=== PATIENT | female | born 1985 | race African-American/Black ===

== ENCOUNTER 2016-09-19 11:13 | Inpatient (IN) | payer BC ==
[2016-09-19] MEDS ORDERED: SODIUM CHLORIDE 0.9% 1,000 ML IV STA (12:05)
[2016-09-19] MEDS ORDERED: ACETAMINOPHEN IV (For NPO) 1,000 MG in SALINE 100 100ML.BAG IVPB STA (12:08)
--- NOTE | 2016-09-19 12:49 | ED ---
General Adult HPI - General Source: patient, EMS, RN notes reviewed Mode of arrival: EMS Limitations: no limitations <Charlie Jaffe - Last Filed: 09/19/16 12:33> <Caesar Payton - Last Filed: 09/19/16 15:16> - General Chief complaint: Abdominal Pain Stated complaint: Chest Pain Time Seen by Provider: 09/19/16 11:53 - History of Present Illness Initial comments: patient's 31-year-old female who presents emergency room today by EMS, the chief complaint of increased abdominal chest pain. She does admit that she's been having symptoms on and off over the last month. She states been more steady last few days. She states she does have some feelings that she has difficult time breathing. She states that she has been to the hospital about this in the past most recently at [facility]. denies any other complaints. Denies any vaginal bleeding or discharge. States she is proximal to 7 weeks by ultrasound. Patient denies any recent fever, chills, shortness of breath, chest pain, back pain, abdominal pain, nausea or vomiting, numbness or tingling, dysuria or hematuria, constipation or diarrhea, headaches or visual changes, or any other complaints. (Charlie Jaffe) - Related Data Home Medications Medication Instructions Recorded Confirmed No Known Home Medications [No 09/19/16 09/19/16 Known Home Medications] Allergies Allergy/AdvReac Type Severity Reaction Status Date / Time aspirin Allergy Anaphylaxis Verified 09/19/16 12:21 cephalexin [From Keflex] Allergy Anaphylaxis Verified 09/19/16 12:21 Review of Systems ROS Other: All systems not noted in ROS Statement are negative. <Charlie Jaffe - Last Filed: 09/19/16 12:33> ROS Other: All systems not noted in ROS Statement are negative. <Caesar Payton - Last Filed: 09/19/16 15:16> ROS Statement: Those systems with pertinent positive or pertinent negative responses have been documented in the HPI. Past Medical History Past Medical History: No Reported History History of Any Multi-Drug Resistant Organisms: None Reported Past Surgical History: No Surgical Hx Reported Past Psychological History: Anxiety Smoking Status: Former smoker Past Alcohol Use History: None Reported Past Drug Use History: None Reported <Charlie Jaffe - Last Filed: 09/19/16 12:33> General Exam Limitations: no limitations <Charlie Jaffe - Last Filed: 09/19/16 12:33> <Caesar Payton - Last Filed: 09/19/16 15:16> - General Exam Comments Initial Comments: General: The patient is awake and alert, in no distress, and does not appear acutely ill. Eye: Pupils are equal, round and reactive to light, extra-ocular movements are intact. No nystagmus. There is normal conjunctiva bilaterally. No signs of icterus. Ears, nose, mouth and throat: There are moist mucous membranes and no oral lesions. Neck: The neck is supple, there is no tenderness or JVD. Cardiovascular: There is a regular rate and rhythm. No murmur, rub or gallop is appreciated.pain reproduced on palpation to the anterior chest wall. Respiratory: Lungs are clear to auscultation, respirations are non-labored, breath sounds are equal. No wheezes, stridor, rales, or rhonchi. Gastrointestinal: Soft, non-distended, non-tender abdomen without masses or organomegaly noted. There is no rebound or guarding present. No CVA tenderness. Bowel sounds are unremarkable. Musculoskeletal: Normal ROM, no tenderness. Strength 5/5. Sensation intact. Pulses equal bilaterally 2+. Neurological: A&O x 3. CN II-XII intact, There are no obvious motor or sensory deficits. Coordination appears grossly intact. Speech is normal. Skin: Skin is warm and dry and no rashes or lesions are noted. Psychiatric: Cooperative, appropriate mood & affect, normal judgment. (Charlie Jaffe) Medical Decision Making <Charlie Jaffe - Last Filed: 09/19/16 12:33> - Lab Data Result diagrams: 09/19/16 12:30 09/19/16 12:30 <Caesar Payton - Last Filed: 09/19/16 15:16> - Medical Decision Making Medical decision-making. The patient is here because of persistent epigastric and right lower quadrant discomfort. On again off again for several months per patient. She was seen at [facility] in [place] on two successive days yesterday and day before. She was discharged home after studies including repeated abdominalultrasounds which were negative.also surgical consultation was done at that time. It was determined the patient is not likely to have appendicitis. The patient is reported to be 7 weeks . Patient complains of nausea vomiting no diarrhea. Denies any serious medical problems denies any previous surgeries. History of aspirin and cephalexin ALLERGIES. Patient states that she is from [place] and prior to being her doctor there was going to order a CAT scan but it didn't happen. nausea vomiting no diarrhea and no vaginal discharge. Labs at the other facility were similar to what they are today at 14,000. on examination the patient has minimal tenderness to the right upper quadrant, negative Smith sign. patient has periods to be GERD with reflux esophagitis. Examination the abdomen finds negative McBurney's point but palpation of the right lower quadrant causes some discomfort, voluntary guarding, no rebound or referred pain..Dr. Payton the case was discussed with Dr. Rosario patient be admitted to his service for observation. She'll be on Reglan to control nausea. ofirmev for pain. Repeat white count.Dr. Payton (Caesar Payton) - Lab Data Lab Results 09/19/16 09/19/16 09/19/16 Range/Units 12:30 12:30 12:30 WBC 14.4 H (3.8-10.6) k/uL RBC 4.06 (3.80-5.40) m/uL Hgb 12.2 (11.4-16.0) gm/dL Hct 34.3 (34.0-46.0) % MCV 84.4 (80.0-100.0) fL MCH 30.1 (25.0-35.0) pg MCHC 35.7 (31.0-37.0) g/dL RDW 13.8 (11.5-15.5) % Plt Count 194 (150-450) k/uL Neutrophils % 87 % Lymphocytes % 10 % Monocytes % 3 % Eosinophils % 1 % Basophils % 0 % Neutrophils # 12.5 H (1.3-7.7) k/uL Lymphocytes # 1.4 (1.0-4.8) k/uL Monocytes # 0.4 (0-1.0) k/uL Eosinophils # 0.1 (0-0.7) k/uL Basophils # 0.1 (0-0.2) k/uL PT (9.0-12.0) sec INR (<1.1) APTT (22.0-30.0) sec D-Dimer (<0.60) mg/L FEU Sodium 137 (137-145) mmol/L Potassium 4.3 (3.5-5.1) mmol/L Chloride 109 H (98-107) mmol/L Carbon Dioxide 19 L (22-30) mmol/L Anion Gap 9 mmol/L BUN 7 (7-17) mg/dL Creatinine 0.65 (0.52-1.04) mg/dL Est GFR (MDRD) Af Amer >60 (>60 ml/min/1.73 sqM) Est GFR (MDRD) Non-Af >60 (>60 ml/min/1.73 sqM) Glucose 94 (74-99) mg/dL Calcium 8.8 (8.4-10.2) mg/dL Total Bilirubin 1.3 (0.2-1.3) mg/dL AST 23 (14-36) U/L ALT 17 (9-52) U/L Alkaline Phosphatase 56 (38-126) U/L Total Creatine Kinase 77 (30-135) U/L CK-MB (CK-2) <0.2 (0.0-2.4) ng/mL CK-MB (CK-2) Rel Index Troponin I <0.012 (0.000-0.034) ng/mL Total Protein 6.7 (6.3-8.2) g/dL Albumin 3.9 (3.5-5.0) g/dL Urine Color Urine Appearance (Clear) Urine pH (5.0-8.0) Ur Specific [place] (1.001-1.035) Urine Protein (Negative) Urine Glucose (UA) (Negative) Urine Ketones (Negative) Urine Blood (Negative) Urine Nitrite (Negative) Urine Bilirubin (Negative) Urine Urobilinogen (<2.0) mg/dL Ur Leukocyte Esterase (Negative) Ur Squamous Epith Cells (0-4) /hpf Amorphous Sediment (None) /hpf Urine Mucus (None) /hpf Urine HCG, Qual (Not Detectd) 09/19/16 09/19/16 09/19/16 Range/Units 12:30 12:30 12:30 WBC (3.8-10.6) k/uL RBC (3.80-5.40) m/uL Hgb (11.4-16.0) gm/dL Hct (34.0-46.0) % MCV (80.0-100.0) fL MCH (25.0-35.0) pg MCHC (31.0-37.0) g/dL RDW (11.5-15.5) % Plt Count (150-450) k/uL Neutrophils % % Lymphocytes % % Monocytes % % Eosinophils % % Basophils % % Neutrophils # (1.3-7.7) k/uL Lymphocytes # (1.0-4.8) k/uL Monocytes # (0-1.0) k/uL Eosinophils # (0-0.7) k/uL Basophils # (0-0.2) k/uL PT 10.7 (9.0-12.0) sec INR 1.1 (<1.1) APTT 24.7 (22.0-30.0) sec D-Dimer 0.35 (<0.60) mg/L FEU Sodium (137-145) mmol/L Potassium (3.5-5.1) mmol/L Chloride (98-107) mmol/L Carbon Dioxide (22-30) mmol/L Anion Gap mmol/L BUN (7-17) mg/dL Creatinine (0.52-1.04) mg/dL Est GFR (MDRD) Af Amer (>60 ml/min/1.73 sqM) Est GFR (MDRD) Non-Af (>60 ml/min/1.73 sqM) Glucose (74-99) mg/dL Calcium (8.4-10.2) mg/dL Total Bilirubin (0.2-1.3) mg/dL AST (14-36) U/L ALT (9-52) U/L Alkaline Phosphatase (38-126) U/L Total Creatine Kinase (30-135) U/L CK-MB (CK-2) (0.0-2.4) ng/mL CK-MB (CK-2) Rel Index Troponin I (0.000-0.034) ng/mL Total Protein (6.3-8.2) g/dL Albumin (3.5-5.0) g/dL Urine Color Yellow Urine Appearance Cloudy H (Clear) Urine pH 8.0 (5.0-8.0) Ur Specific [place] 1.013 (1.001-1.035) Urine Protein Negative (Negative) Urine Glucose (UA) Negative (Negative) Urine Ketones 2+ H (Negative) Urine Blood Negative (Negative) Urine Nitrite Negative (Negative) Urine Bilirubin Negative (Negative) Urine Urobilinogen <2.0 (<2.0) mg/dL Ur Leukocyte Esterase Negative (Negative) Ur Squamous Epith Cells 1 (0-4) /hpf Amorphous Sediment Rare H (None) /hpf Urine Mucus Rare H (None) /hpf Urine HCG, Qual Detected (Not Detectd) Disposition <Charlie Jaffe - Last Filed: 09/19/16 12:33> <Caesar Payton - Last Filed: 09/19/16 15:16> Clinical Impression: GERD (gastroesophageal reflux disease), Abdominal pain, First trimester Disposition: ADMITTED IP TO THIS HOSP Referrals: None,Stated [Primary Care Provider] - 1-2 days
[2016-09-19 12:58] LABS: ALT 17 U/L (9-52); AST 23 U/L (14-36); Alkaline Phosphatase 56 U/L (38-126); Anion Gap 9 mmol/L; Blood Urea Nitrogen 7 mg/dL (7-17); Calcium 8.8 mg/dL (8.4-10.2); Carbon Dioxide 19 mmol/L (22-30); Chloride 109 mmol/L (98-107); Glucose 94 mg/dL (74-99); Non-African American GFR(MDRD) >60 (>60 ml/min/1.73 sqM); Potassium 4.3 mmol/L (3.5-5.1); Sodium 137 mmol/L (137-145); Total Bilirubin 1.3 mg/dL (0.2-1.3); Total Protein 6.7 g/dL (6.3-8.2)
[2016-09-19 13:06] LABS: Basophils # (A) 0.1 k/uL (0-0.2); Basophils % (A) 0 %; CH 30.9; CHCM 36.8; Eosinophils # (A) 0.1 k/uL (0-0.7); Eosinophils % (A) 1 %; HCT 34.3 % (34.0-46.0); HDW 2.18; HGB 12.2 gm/dL (11.4-16.0); Luc # (Auto) 0.07; Luc % (Auto) 1; Lymphocytes # (A) 1.4 k/uL (1.0-4.8); Lymphocytes % (A) 10 %; MCH 30.1 pg (25.0-35.0); MCHC 35.7 g/dL (31.0-37.0); MCV 84.4 fL (80.0-100.0); Mean Platelet Volume 7.6; Monocytes # (A) 0.4 k/uL (0-1.0); Monocytes % (A) 3 %; Neutrophils # (A) 12.5 k/uL (1.3-7.7); Neutrophils % (A) 87 %; RBC 4.06 m/uL (3.80-5.40); RDW 13.8 % (11.5-15.5); WBC 14.4 k/uL (3.8-10.6); WBC (Perox) 14.46
[2016-09-19 13:08] LABS: Creatine Kinase 77 U/L (30-135)
[2016-09-19 13:15] LABS: INR 1.1 (<1.1); Partial Thromboplastin Time 24.7 sec (22.0-30.0); Prothrombin Time 10.7 sec (9.0-12.0)
[2016-09-19 13:17] LABS: Amorphous Sediment,Urine Rare /hpf; Appearance,Urine Cloudy (Clear); Bilirubin,Urine Negative (Negative); Glucose,Urine (UA) Negative (Negative); Ketones,Urine 2+ (Negative); Leukocyte Esterase,Urine Negative (Negative); Mucus,Urine Rare /hpf; Nitrite,Urine Negative (Negative); Particle Count 3482; Protein,Urine Negative (Negative); Specific Gravity,Urine 1.013 (1.001-1.035); Squamous Epithelial Cell,Urine 1 /hpf (0-4); UA Billing (MACRO vs. MICRO) MICRO; Urobilinogen,Urine <2.0 mg/dL (<2.0)
[2016-09-19 13:21] LABS: Creatine Kinase MB <0.2 ng/mL (0.0-2.4); Troponin I <0.012 ng/mL (0.000-0.034)
[2016-09-19] MEDS ORDERED: HYDROmorphone 1 MG/ML 1 ML SYRINGE IVP STA (14:41)
[2016-09-19] MEDS ORDERED: METOCLOPRAMIDE 5 MG/ML 2 ML VIAL IVP STA (14:41)
[2016-09-19] MEDS ORDERED: NALOXONE 0.4 MG/ML 1 ML VIAL IV PRN (15:16)
[2016-09-19] MEDS ORDERED: SODIUM CHLORIDE 0.9% 1,000 ML IV SCH (15:30)
[2016-09-19] MEDS: HYDROmorphone 1 MG/ML 1 ML SYRINGE IV PRN ×2 (19:22→23:22)
[2016-09-19] MEDS: METOCLOPRAMIDE 5 MG/ML 2 ML VIAL IVP PRN (19:24)
[2016-09-19] MEDS ORDERED: FAMOTIDINE 20 MG/2 ML VIAL IV PRN (21:00)
[2016-09-20] MEDS: HYDROmorphone 1 MG/ML 1 ML SYRINGE IV PRN ×5 (03:11→21:57)
[2016-09-20] MEDS: METOCLOPRAMIDE 5 MG/ML 2 ML VIAL IVP PRN ×3 (03:13→19:55)
[2016-09-20 06:10] LABS: Basophils % (A) 0 %; CHCM 36.7; Eosinophils # (A) 0.1 k/uL (0-0.7); Eosinophils % (A) 0 %; HDW 2.13; HGB 11.6 gm/dL (11.4-16.0); Luc # (Auto) 0.17; Luc % (Auto) 1; Lymphocytes # (A) 2.3 k/uL (1.0-4.8); Lymphocytes % (A) 16 %; MCH 29.7 pg (25.0-35.0); MCHC 35.1 g/dL (31.0-37.0); MCV 84.6 fL (80.0-100.0); Monocytes # (A) 0.6 k/uL (0-1.0); Monocytes % (A) 4 %; Neutrophils # (A) 11.3 k/uL (1.3-7.7); Neutrophils % (A) 78 %; RDW 13.6 % (11.5-15.5); WBC 14.4 k/uL (3.8-10.6); WBC (Perox) 14.63
[2016-09-20] MEDS ORDERED: LIDOCAINE VISCOUS 2% 15 ML CUP MUCOUS MEM ONE (09:05)
[2016-09-20] MEDS ORDERED: HYDROmorphone 1 MG/ML 1 ML SYRINGE IVP STA (09:05)
[2016-09-20] MEDS ORDERED: MAGNESIUM HYDROXIDE 2,400 MG/10 ML CUP PO PRN (09:06)
[2016-09-20] MEDS: ONDANSETRON 4 MG/2 ML VIAL IVP PRN ×3 (09:07→22:00)
--- NOTE | 2016-09-20 09:22 | P.GSHP ---
History of Present Illness H&P Date: 09/20/16 Chief Complaint: Epigastric pain, chest pain, nausea This a 31-year-old female who presented to the emergency room with complaints of nausea, chest pain and epigastric pain. Patient is 7 weeks . Patient states she lives in [facility] for the last 8 years and has recently moved back to [place]. Patient moved back to [place] approximately 2 weeks ago. Patient states that she has developed this pain nausea and chest pain over the last 72 hours. She was actually worked up at [facility] and her workup was negative. She was discharged home after receiving pain meds. Patient presented back to the emergency room at [facility]. Due to her complaints of pain and nausea she was admitted for observation. Patient states that she feels nausea and some heartburn type issues. She is 7 weeks . - Constitutional Constitutional: Reports as per HPI Past Medical History Past Medical History: No Reported History History of Any Multi-Drug Resistant Organisms: None Reported Past Surgical History: No Surgical Hx Reported Past Anesthesia/Blood Transfusion Reactions: No Reported Reaction Past Psychological History: Anxiety Smoking Status: Former smoker Past Alcohol Use History: None Reported Past Drug Use History: None Reported - Past Family History Mother Family Medical History: Thyroid Disorder Father Additional Family Medical History / Comment(s): pt states none Medications and Allergies Home Medications Medication Instructions Recorded Confirmed Type No Known Home Medications [No 09/19/16 09/19/16 History Known Home Medications] Allergies Allergy/AdvReac Type Severity Reaction Status Date / Time aspirin Allergy Anaphylaxis Verified 09/19/16 12:21 cephalexin [From Keflex] Allergy Anaphylaxis Verified 09/19/16 12:21 Surgical - Exam Vital Signs Temp Pulse Resp BP Pulse Ox 97.3 F L 79 30 H 124/72 100 09/19/16 11:28 09/19/16 11:28 09/19/16 11:28 09/19/16 11:28 09/19/16 11:28 - General well developed, no distress - Eyes PERRL - ENT normal pinna - Neck no masses - Respiratory normal expansion - Cardiovascular Rhythm: regular - Abdomen Mild epigastric tenderness, there is no rebound or guarding. Abdomen: soft Results - Labs 09/20/16 05:43 09/19/16 12:30 Abnormal Lab Results - Last 24 Hours (Table) 09/19/16 09/19/16 09/19/16 Range/Units 12:30 12:30 12:30 WBC 14.4 H (3.8-10.6) k/uL Hct (34.0-46.0) % Neutrophils # 12.5 H (1.3-7.7) k/uL Chloride 109 H (98-107) mmol/L Carbon Dioxide 19 L (22-30) mmol/L Urine Appearance Cloudy H (Clear) Urine Ketones 2+ H (Negative) Amorphous Sediment Rare H (None) /hpf Urine Mucus Rare H (None) /hpf 09/20/16 Range/Units 05:43 WBC 14.4 H (3.8-10.6) k/uL Hct 33.0 L (34.0-46.0) % Neutrophils # 11.3 H (1.3-7.7) k/uL Chloride (98-107) mmol/L Carbon Dioxide (22-30) mmol/L Urine Appearance (Clear) Urine Ketones (Negative) Amorphous Sediment (None) /hpf Urine Mucus (None) /hpf Microbiology - Last 24 Hours (Table) 09/19/16 12:30 Urine Culture - Preliminary Urine,Voided Diabetes panel 09/19/16 Range/Units 12:30 Sodium 137 (137-145) mmol/L Potassium 4.3 (3.5-5.1) mmol/L Chloride 109 H (98-107) mmol/L Carbon Dioxide 19 L (22-30) mmol/L BUN 7 (7-17) mg/dL Creatinine 0.65 (0.52-1.04) mg/dL Glucose 94 (74-99) mg/dL Calcium 8.8 (8.4-10.2) mg/dL AST 23 (14-36) U/L ALT 17 (9-52) U/L Alkaline Phosphatase 56 (38-126) U/L Total Protein 6.7 (6.3-8.2) g/dL Albumin 3.9 (3.5-5.0) g/dL Calcium panel 09/19/16 Range/Units 12:30 Calcium 8.8 (8.4-10.2) mg/dL Albumin 3.9 (3.5-5.0) g/dL Pituitary panel 09/19/16 Range/Units 12:30 Sodium 137 (137-145) mmol/L Potassium 4.3 (3.5-5.1) mmol/L Chloride 109 H (98-107) mmol/L Carbon Dioxide 19 L (22-30) mmol/L BUN 7 (7-17) mg/dL Creatinine 0.65 (0.52-1.04) mg/dL Glucose 94 (74-99) mg/dL Calcium 8.8 (8.4-10.2) mg/dL Adrenal panel 09/19/16 Range/Units 12:30 Sodium 137 (137-145) mmol/L Potassium 4.3 (3.5-5.1) mmol/L Chloride 109 H (98-107) mmol/L Carbon Dioxide 19 L (22-30) mmol/L BUN 7 (7-17) mg/dL Creatinine 0.65 (0.52-1.04) mg/dL Glucose 94 (74-99) mg/dL Calcium 8.8 (8.4-10.2) mg/dL Total Bilirubin 1.3 (0.2-1.3) mg/dL AST 23 (14-36) U/L ALT 17 (9-52) U/L Alkaline Phosphatase 56 (38-126) U/L Total Protein 6.7 (6.3-8.2) g/dL Albumin 3.9 (3.5-5.0) g/dL Assessment and Plan Plan: Epigastric pain, nausea, chest pain. Patient will have an EKG her performed this morning. We will also consult the medicine and obstetrics. She received some pain medication. And be evaluated after.
--- NOTE | 2016-09-20 11:15 | US ---
EXAMINATION TYPE: US OB <= 14 wk fetus DATE OF EXAM: 09/20/2016 COMPARISON: NONE CLINICAL HISTORY: viability, patient having chest and abd pain. EXAM PERFORMED: Transabdominal (TA) EXAM MEASUREMENTS: GESTATIONAL AGE / DATING Physician Established: not yet established Dates by LMP: unknown Dates by First Scan: not available Dates by Current Scan for: (7 weeks/1 days) EDC: 05/08/17 MATERNAL ANATOMY Uterus: 10. 6 x 7.7 x 8.4cm Right Ovary: 3.0 x 2.2 x 2.2cm Left Ovary: 2.2 x 1.8 x 1.8cm Post CDS / Adnexa: wnl Presence of free fluid: no GESTATION / SURVEY CRL: 1.0 (7 weeks/1 days) Yolk Sac (normal less than 6mm): 3mm Heart Rate: 165 bpm Rhythm: Normal IUP: Viable IUP Date of LMP: unknown Beta HcG (if available): not available IMPRESSION: Single viable intrauterine corresponding to ultrasound age 7 weeks 1 day estimated delivery date 05/08/2017
--- NOTE | 2016-09-20 12:56 | P.OBCN ---
History of Present Illness Consult date: 09/20/16 Reason for consult: early problem Chief complaint: N/V and abdominal pain History of present illness: 31 year old presents at 7 weeks 1 day with severe abdominal/chest pain that started a few months ago. She is also unable to keep any food or fluid down at this point. Her pain is helped only by dilaudid but it wears off quickly. The pain is described as sharp and used to be only in the chest but now has moved down to the upper abdomen. US today showed a viable 7 week 1 day fetus with a heart rate of 165. She is currently getting zofran, reglan and prilosec. Review of Systems All systems: negative Constitutional: Denies chills, Denies fever Eyes: denies blurred vision, denies pain Ears, nose, mouth and throat: Denies headache, Denies sore throat Cardiovascular: Reports chest pain, Denies shortness of breath Respiratory: Denies cough Gastrointestinal: Reports abdominal pain, Reports diarrhea, Reports nausea, Reports vomiting Genitourinary: Denies dysuria, Denies hematuria Musculoskeletal: Denies myalgias Integumentary: Denies pruritus, Denies rash Neurological: Reports weakness, Denies numbness Psychiatric: Denies anxiety, Denies depression Endocrine: Denies fatigue, Denies weight change Past Medical History Additional Past Medical History / Comment(s): history of iron deficiency anemia. Obstetric history: She has had on spontaneous and 2 vaginal deliveries of an 11 year old and 9 year old. This is her fourth . 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) Additional Past Surgical History / Comment(s): I&D abscess left leg Past Anesthesia/Blood Transfusion Reactions: No Reported Reaction Past Psychological History: Anxiety Smoking Status: Former smoker Past Alcohol Use History: None Reported Past Drug Use History: None Reported - Past Family History Mother Family Medical History: Thyroid Disorder Father Additional Family Medical History / Comment(s): pt states none Medications and Allergies Home Medications Medication Instructions Recorded Confirmed Type No Known Home Medications [No 09/19/16 09/19/16 History Known Home Medications] Allergies Allergy/AdvReac Type Severity Reaction Status Date / Time aspirin Allergy Anaphylaxis Verified 09/19/16 12:21 cephalexin [From Keflex] Allergy Anaphylaxis Verified 09/19/16 12:21 Exam Osteopathic Statement: *. No significant issues noted on an osteopathic structural exam other than those noted in the History and Physical/Consult. - Vital Signs Vital signs: Vital Signs Temp Pulse Pulse Resp BP BP Pulse Ox 09/20/16 07:49 98.4 F 56 L 16 133/89 96 09/20/16 03:36 98.1 F 89 18 127/85 98 09/20/16 03:22 16 09/20/16 00:00 16 09/19/16 20:00 20 09/19/16 19:41 98.5 F 75 20 141/77 100 09/19/16 16:56 98.2 F 64 16 135/79 100 09/19/16 16:40 98.1 F 79 16 97/55 99 09/19/16 15:07 98.2 F 70 22 124/71 100 Intake and Output 09/19/16 09/20/16 09/20/16 22:59 06:59 14:59 Other: Voiding Method Toilet Toilet Toilet # Voids 2 Weight 66.4 kg Heart: RRR lungs: CTAB Abdomen: soft, nondistended, normal bowel sounds, no guarding or rigidity Extremeties: neg jana's Results Result Diagrams: 09/20/16 05:43 09/19/16 12:30 Abnormal Lab Results - Last 24 Hours (Table) 09/19/16 09/19/16 09/19/16 Range/Units 12:30 12:30 12:30 WBC 14.4 H (3.8-10.6) k/uL Hct (34.0-46.0) % Neutrophils # 12.5 H (1.3-7.7) k/uL Chloride 109 H (98-107) mmol/L Carbon Dioxide 19 L (22-30) mmol/L Urine Appearance Cloudy H (Clear) Urine Ketones 2+ H (Negative) Amorphous Sediment Rare H (None) /hpf Urine Mucus Rare H (None) /hpf 09/20/16 Range/Units 05:43 WBC 14.4 H (3.8-10.6) k/uL Hct 33.0 L (34.0-46.0) % Neutrophils # 11.3 H (1.3-7.7) k/uL Chloride (98-107) mmol/L Carbon Dioxide (22-30) mmol/L Urine Appearance (Clear) Urine Ketones (Negative) Amorphous Sediment (None) /hpf Urine Mucus (None) /hpf Microbiology - Last 24 Hours (Table) 09/19/16 12:30 Urine Culture - Preliminary Urine,Voided Assessment and Plan (1) Abdominal pain Status: Acute (2) First trimester Status: Acute Plan: 1. I changed her IV fluids to D5 0.9 since she is unable to get any other nutrition. 2. Pt is very concerned about what is going on and says the pain started before the . Though the notes say she had a full workup at [place], she says she did not get any x-ray or CT scan. I discussed the risks of radiation with the patient and she does understand. It usually would take 3 CT scans or 150 x- rays to cause a problem for the fetus be we want to be careful especially in the first trimester. I think it would be ok to get a CT with contrast, if that is helpful, of the chest and abdomen with the pelvis shielded. If an EGD is necessary, she may have that as well with minimal IV sedation. 3. Sometimes in a hyperemesis patient, the thyroid is to blame so I will order labs to check this.
[2016-09-20] MEDS: DEXTROSE 5%-0.9% NACL 1,000 ML IV SCH ×2 (14:49→21:57)
[2016-09-20] MEDS: PANTOPRAZOLE 40 MG/10 ML VIAL IVP SCH (15:12)
--- NOTE | 2016-09-20 18:39 | P.CONS ---
History of Present Illness - Reason for Consult Consult date: 09/20/16 medical management - History of Present Illness 31 yr old 7 weeks comes into the hospital with complaints of abdominal pain and intractable nausea for the last 5 days. pt recently moved here from [place], went to [facility] with similar symptoms , abdominal ultrasound was done and discharged home. Hyperemesis was the diagnosis according to her Today pt states she is unable to tolerate pain, in the epigastric area radiating to her chest, pt is retching no blood is noted previous pregnancies were not so severe states her abdominal pain has been ongoing even prior to the Pt used to smoke marijuana daily Quit smoking when she found out about Her friend was at bedside Review of Systems All systems: negative (noted in HPI) Past Medical History Past Medical History: No Reported History Additional Past Medical History / Comment(s): history of iron deficiency anemia. Obstetric history: She has had on spontaneous and 2 vaginal deliveries of an 11 year old and 9 year old. This is her fourth . 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) Additional Past Surgical History / Comment(s): I&D abscess left leg Past Anesthesia/Blood Transfusion Reactions: No Reported Reaction Past Psychological History: Anxiety Smoking Status: Former smoker Past Alcohol Use History: None Reported Past Drug Use History: None Reported - Past Family History Mother Family Medical History: Thyroid Disorder Father Additional Family Medical History / Comment(s): pt states none Medications and Allergies Home Medications Medication Instructions Recorded Confirmed Type No Known Home Medications [No 09/19/16 09/19/16 History Known Home Medications] Allergies Allergy/AdvReac Type Severity Reaction Status Date / Time aspirin Allergy Anaphylaxis Verified 09/19/16 12:21 cephalexin [From Keflex] Allergy Anaphylaxis Verified 09/19/16 12:21 Physical Exam Vitals: Vital Signs Temp Pulse Resp BP Pulse Ox 09/20/16 16:41 98.5 F 65 16 121/78 98 09/20/16 07:49 98.4 F 56 L 16 133/89 96 09/20/16 03:36 98.1 F 89 18 127/85 98 09/20/16 03:22 16 09/20/16 00:00 16 09/19/16 20:00 20 09/19/16 19:41 98.5 F 75 20 141/77 100 Intake and Output 09/20/16 09/20/16 09/20/16 06:59 14:59 22:59 Other: Voiding Method Toilet Toilet Toilet # Voids 2 - Constitutional General appearance: no acute distress - EENT Eyes: EOMI, PERRLA - Neck Neck: normal ROM - Respiratory Respiratory: bilateral: CTA, negative: diminished, dullness, rales - Cardiovascular Rhythm: regular Heart sounds: normal: S1, S2 Abnormal Heart Sounds: no systolic murmur - Gastrointestinal General gastrointestinal: no organomegaly, soft, tenderness (diffusely) - Neurologic Neurologic: CNII-XII intact Results CBC & Chem 7: 09/20/16 05:43 09/19/16 12:30 Labs: Abnormal Lab Results - Last 24 Hours (Table) 09/20/16 Range/Units 05:43 WBC 14.4 H (3.8-10.6) k/uL Hct 33.0 L (34.0-46.0) % Neutrophils # 11.3 H (1.3-7.7) k/uL Microbiology - Last 24 Hours (Table) 09/19/16 12:30 Urine Culture - Preliminary Urine,Voided Assessment and Plan Plan: Intractable nausea, vomiting, with hisotry of Marijuana use one differential would be cyclic vomiting syndrome. as pt was having symptoms prior to or hyperemesis with becky tpoete tears Plan Continue symptomatic tx start PPI iv Cat C risk could do a trial of topamax. Syndrome presents like abdominal migraine, hence migraine tx has show some promise Pain seeking behaviour needs to be considered Thank you for the consultation
[2016-09-21] MEDS: ONDANSETRON 4 MG/2 ML VIAL IVP PRN ×4 (01:46→21:53)
[2016-09-21] MEDS: HYDROmorphone 1 MG/ML 1 ML SYRINGE IV PRN ×6 (01:47→21:53)
[2016-09-21] MEDS: METOCLOPRAMIDE 5 MG/ML 2 ML VIAL IVP PRN ×2 (07:34→17:36)
[2016-09-21] MEDS: DEXTROSE 5%-0.9% NACL 1,000 ML IV SCH ×3 (08:27→19:16)
[2016-09-21] MEDS: PANTOPRAZOLE 40 MG/10 ML VIAL IVP SCH (10:30)
--- NOTE | 2016-09-21 13:02 | P.PN ---
Subjective Principal diagnosis: Nausea Patient states her nausea and abdominal pain is slightly improved. States she still is quite nauseous. Patient states that she's had these issues with chronic nausea even before however is slightly worsened with her . Objective - Vital Signs Vital signs: Vital Signs Temp 98.5 F 09/21/16 08:00 Pulse 76 09/21/16 08:00 Resp 16 09/21/16 08:00 BP 134/85 09/21/16 08:00 Pulse Ox 100 09/21/16 08:00 Intake & Output 09/20/16 09/21/16 09/21/16 18:59 06:59 18:59 Other: Voiding Method Toilet Toilet Toilet # Voids 2 - Constitutional General appearance: Present: average body habitus, cooperative - Gastrointestinal Gastrointestinal Comment(s): Abdomen is soft. There is no rebound or guarding. There is minimal epigastric tenderness. - Labs CBC & Chem 7: 09/20/16 05:43 09/19/16 12:30 Labs: Microbiology - Last 24 Hours (Table) 09/19/16 12:30 Urine Culture - Final Urine,Voided Assessment and Plan Plan: Nausea in the 31-year-old female who is 7 weeks . There is no surgical intervention planned. Patient will continue Zofran and Reglan. We will ask GI to see her.
--- NOTE | 2016-09-21 19:37 | P.PN ---
Subjective 31 yr old 7 weeks comes into the hospital with complaints of abdominal pain and intractable nausea for the last 5 days. pt recently moved here from [place], went to [facility] with similar symptoms , abdominal ultrasound was done and discharged home. Hyperemesis was the diagnosis according to her Today pt states she is unable to tolerate pain, in the epigastric area radiating to her chest, pt is retching no blood is noted previous pregnancies were not so severe states her abdominal pain has been ongoing even prior to the Pt used to smoke marijuana daily Quit smoking when she found out about Her friend was at bedside 09/21/16 continues tohave pain however appears to show some improvement with tolerating pain at baseline Objective - Vital Signs Vital signs: Vital Signs Temp 98.5 F 09/21/16 08:00 Pulse 76 09/21/16 08:00 Resp 16 09/21/16 08:00 BP 134/85 09/21/16 08:00 Pulse Ox 100 09/21/16 08:00 Intake & Output 09/21/16 09/21/16 09/22/16 06:59 18:59 06:59 Other: Voiding Method Toilet Toilet # Voids 2 - Constitutional General appearance: Present: no acute distress - EENT Eyes: Present: EOMI, PERRLA - Neck Neck: Present: normal ROM - Respiratory Respiratory: bilateral: CTA, negative: dullness, rales, rhonchi - Cardiovascular Rhythm: regular Heart sounds: normal: S1, S2 Abnormal Heart Sounds: Absent: systolic murmur - Gastrointestinal General gastrointestinal: Present: soft, tenderness. Absent: organomegaly - Integumentary Integumentary: Present: normal - Neurologic Neurologic: Present: CNII-XII intact. Absent: focal deficits - Psychiatric Psychiatric: Present: A&O x's 3 - Labs CBC & Chem 7: 09/20/16 05:43 09/19/16 12:30 Labs: Microbiology - Last 24 Hours (Table) 09/19/16 12:30 Urine Culture - Final Urine,Voided Assessment and Plan Plan: Intractable nausea, vomiting, with hisotry of Marijuana use one differential would be cyclic vomiting syndrome. as pt was having symptoms prior to or hyperemesis with becky topete tears Plan Continue symptomatic tx start PPI iv Cat C risk could do a trial of topamax. Hold off at this time risk of cleft lip and palate Syndrome presents like abdominal migraine, hence migraine tx has show some promise Pain seeking behaviour needs to be considered IVF stict NPO if there is some improvement
[2016-09-22] MEDS: DEXTROSE 5%-0.9% NACL 1,000 ML IV SCH ×2 (01:33→08:47)
[2016-09-22] MEDS: HYDROmorphone 1 MG/ML 1 ML SYRINGE IV PRN ×4 (01:35→15:00)
[2016-09-22] MEDS: METOCLOPRAMIDE 5 MG/ML 2 ML VIAL IVP PRN ×3 (01:36→11:57)
[2016-09-22] MEDS: ONDANSETRON 4 MG/2 ML VIAL IVP PRN ×2 (08:47→15:00)
[2016-09-22] MEDS: PANTOPRAZOLE 40 MG/10 ML VIAL IVP SCH (09:12)
--- NOTE | 2016-09-22 11:35 | P.CONS ---
History of Present Illness - Reason for Consult Consult date: 09/22/16 nausea Requesting physician: Lazaro Bhatt - History of Present Illness 31-year-old female approximately 7 weeks presents with epigastric pain nausea vomiting intermittently 3-4 months. Patient was recently living in [facility] to [place]. She was evaluated at [facility] this past Sunday and was given a diagnosis of hyperemesis gravidarum. Imaging studies and endoscopic procedures were not performed. Pain is localized to midepigastrium which then precipitates increased nausea vomiting. Denies hematemesis hematochezia melena. No history peptic ulcer disease. 2 previous pregnancies 1 with minimal nausea vomiting other 1 with nausea vomiting as expected not as severe. White count 14.4. Hemoglobin 11.6. BUN 7. Creatinine 0.6. Evaluated by general surgery no plans for surgical intervention at this time. Review of Systems Constitutional: Denies fever, chills, sweats, weight gain, or loss. HEENT: Negative for migraines, blurred vision or loss, earaches, drainage, tinnitus, oral mucosal lesions, dysphagia, or odynophagia. CARDIAC: Negative for chest pain, arrhythmias, or palpitation. RESPIRATORY: Negative for shortness of breath, hemoptysis, cough, or sputum production. GI: See HPI for pertinent findings. : Negative for hematuria, urgency, frequency, polyuria, or dysuria. GYNc: 7 weeks . Negative vaginal discharge. MUSCULOSKELETAL: Negative for muscle aches, swelling, arthritis, and arthralgias. NEUROLOGIC: Negative for stroke or TIA. ENDOCRINE: Negative for thyroid problems. SKIN: Negative for rash or itching. PSYCHIATRIC: Negative history for depression and anxiety All systems: negative (See HPI) Past Medical History Past Medical History: No Reported History Additional Past Medical History / Comment(s): history of iron deficiency anemia. Obstetric history: She has had on spontaneous and 2 vaginal deliveries of an 11 year old and 9 year old. This is her fourth . History of Any Multi-Drug Resistant Organisms: None Reported Past Surgical History: Breast Surgery Additional Past Surgical History / Comment(s): I&D abscess left leg Past Anesthesia/Blood Transfusion Reactions: No Reported Reaction Past Psychological History: Anxiety Smoking Status: Former smoker Past Alcohol Use History: None Reported Past Drug Use History: None Reported - Past Family History Mother Family Medical History: Thyroid Disorder Father Additional Family Medical History / Comment(s): pt states none Medications and Allergies Home Medications Medication Instructions Recorded Confirmed Type No Known Home Medications [No 09/19/16 09/19/16 History Known Home Medications] Allergies Allergy/AdvReac Type Severity Reaction Status Date / Time aspirin Allergy Anaphylaxis Verified 09/19/16 12:21 cephalexin [From Keflex] Allergy Anaphylaxis Verified 09/19/16 12:21 Physical Exam Vitals: Vital Signs Temp Pulse Pulse Resp BP Pulse Ox 09/22/16 08:30 98.4 F 70 22 113/63 100 09/22/16 07:50 98.6 F 61 16 138/88 99 09/22/16 04:00 18 09/22/16 02:00 98.6 F 80 20 150/107 100 09/21/16 22:19 137/90 09/21/16 21:40 98.8 F 64 20 145/93 100 09/21/16 20:00 20 09/21/16 17:25 98.6 F 64 16 107/64 100 Intake and Output 09/21/16 09/22/16 09/22/16 22:59 06:59 14:59 Other: Voiding Method Toilet # Voids 1 # Emes[place] 1 General appearance: The patient is alert, oriented, anxious tearful. HET: Head is normocephalic and atraumatic. Pupils are equal and reactive. Oropharynx is clear without lesions. Neck: Supple without lymphadenopathy. Trachea midline. Heart: S1 S2. Regular rate and rhythm. Lungs: No crackles or wheezes are heard. Abdomen: Soft, midepigastric mild tenderness, nondistended with bowel sounds. No peritoneal signs. No palpable organomegaly or masses. Extremities: Normal skin color and turgor. No cyanosis, rash, ulceration, clubbing, or edema. Radial and pedal pulses are 2/4 bilaterally. Neurological: No focal deficits. Strength and sensation are grossly intact. Results CBC & Chem 7: 09/20/16 05:43 09/19/16 12:30 Assessment and Plan (1) Nausea & vomiting Narrative/Plan: Multifactorial suspect a component of nausea vomiting secondary to first trimester mild hyperemesis gravidarum. Etiology of epigastric pain is unclear at this time. Doubt peptic ulcer disease. Possible yesterday as possible esophagitis. Patient is receiving PPI prophylaxis. General surgery has evaluated patient. Status: Acute (2) Epigastric pain Status: Acute (3) First trimester Status: Acute Plan: 1. Would advise to continue with supportive measures. Epigastric pain seems to exacerbate nausea vomiting. We'll defer to general surgery for further workup of pain if clinically necessary; difficult with first trimester pregnancies to proceed with imaging studies and/or procedures requiring analgesia. 2. Endoscopic evaluation is not planned at this time furthermore even if endoscopic exam supported esophagitis gastritis and/or evidence of peptic ulcer disease she is already receiving prophylactic treatment for such. Thank you for this kind referral and the opportunity to participate in the care of your patient. This consultation was discussed with Dr. Orosco. The impression and plan of care have been directed as dictated.
[2016-09-22 13:28] VITALS: BP 136/84; PULSE 64; RESP 20; TEMP 98.2
--- NOTE | 2016-09-22 14:32 | P.DS ---
Providers Date of admission: 09/21/16 09:51 Expected date of discharge: 09/22/16 Attending physician: Lazaro Bhatt Consults: 09/20/16 08:28 Consult Physician Routine Consulting Provider: Josefa Sanchez Consult Reason/Comments: first trimester with severe nausea/ vomiting Do you want consulting provider notified?: Yes 09/20/16 09:22 Consult Physician Routine Consulting Provider: Amanda Wagner Consult Reason/Comments: medical management Do you want consulting provider notified?: Already Contacted 09/21/16 13:02 Consult Physician Routine Consulting Provider: Bal Orosco Consult Reason/Comments: Nausea Do you want consulting provider notified?: Yes Primary care physician: Stated None Hospital Course: This is a 31-year-old female who is admitted to hospital with complaints of nausea and epigastric abdominal pain and chest pain. The patient is 7 weeks . Her workup was limited due to her . Patient states he had severe nausea and being unable to eat. The patient's request to be transferred. Please see chart for details. Patient Condition at Discharge: Stable Plan - Discharge Summary New Discharge Prescriptions: No Action No Known Home Medications [No Known Home Medications] Discharge Medication List No Known Home Medications [No Known Home Medications] 09/19/16 [History] Follow up Appointment(s)/Referral(s): None,Stated [Primary Care Provider] - 1-2 days Activity/Diet/Wound Care/Special Instructions: Physician referral line/Health Access [phone]
== END 2016-09-22 14:00 | disposition short-term general hospital (02) | DRG 781 ==
LOC: EC 11:13 → 3OBS 15:16 → OBSVTOIN 09-21 09:51 → 6PED 09-21 14:43
PROVIDERS: ADMIT Surgery; ATTEND Surgery
DX: O21.9 Vomiting of pregnancy, unspecified (principal); O99.321 Drug use complicating pregnancy, first trimester; F12.90 Cannabis use, unspecified, uncomplicated; Z3A.01 Less than 8 weeks gestation of pregnancy; O99.341 Other mental disorders complicating pregnancy, first trimester; F41.9 Anxiety disorder, unspecified; O99.611 Diseases of the digestive system complicating pregnancy, first trimester; K21.9 Gastro-esophageal reflux disease without esophagitis; Z87.891 Personal history of nicotine dependence; Z88.6 Allergy status to analgesic agent; Z88.1 Allergy status to other antibiotic agents
CPT/HCPCS: 36415; 76801; 80053; 81001; 81025; 82550; 82553; 84439; 84443; 84484; 84702; 85025; 85379; 85610; 85730; 87086; 93005; 96361; 96374; 96375; 96376; 99285

== ENCOUNTER 2017-01-05 11:40 | Outpatient (CLI) | payer BC ==
[2017-01-05 12:32] VITALS: BP 114/61; PULSE 82; RESP 20; TEMP 98.1
--- NOTE | 2017-01-27 20:11 | P.MSEPDOC ---
Presenting Problems - Arrival Data Date of Arrival on Unit: 01/05/17 Time of Arrival on Unit: 11:30 Mode of Transport: Wheelchair - Complaint OB-Reason for Admission/Chief Complaint: Other Comment: vaginal pressure and discomfort and llq groin pains while at work. lightheaded Medical History - Information : 3 Para: 2 Term: 2 : 0 Abortions: Spontaneous or Elective: 0 Number of Living Children: 2 - Gestational Age Gestational Age by MARTI (wks/days): 23 Weeks and 1 Days - History Comment: denies history of problems with . delivered both preg full term. denies leaking or bleeding. denies uti s/sx, denies illness at home. Review of Systems - Review of Systems Constitutional: No problems Breast: No problems ENT: No problems Cardiovascular: No problems Respiratory: No problems Gastrointestinal: No problems Genitourinary: No problems Musculoskeletal: No problems Neurological: No problems Skin: No problems Vital Signs - Temperature Temperature: 98.1 F Temperature Source: Oral - Pulse Right Brachial Pulse Rate: 82 Pulse Assessment Method: Automatic Cuff - Respirations Respiratory Rate: 20 Oxygen Delivery Method: Room Air O2 Sat by Pulse Oximetry: 98 - Blood Pressure Right Arm Blood Pressure: 114/61 Blood Pressure Mean: 78 Blood Pressure Source: Automatic Cuff Medical Screen Scoring (Pre) - Cervical Exam Dilation: 0 cm = 0 Membranes: Intact - Uterine Contractions Frequency: N/A Duration: N/A Intensity: N/A - Maternal Vital Signs Maternal Temperature: N/A Maternal Blood Pressure: N/A Signs of Preeclampsia: N/A Maternal Respirations: N/A - Maternal Trauma Maternal Trauma: N/A - Assessment Baseline FHR: 145 Heart Rate - NICHD Category: Category I (Normal) = 0 Station: N/A - Total Score Total Score (Pre): 0 - Level of Risk Level of Risk: Low (0-5) Physician Notification (Pre) - Physician Notified Physician/Practitioner Notifed:: yes Spoke With: kb New Order Received: Yes - Notification Comment Comment: discharge Disposition - Disposition OB Disposition: Discharge to home Transferred to:: home Discharge Date: 01/05/17 Discharge Time: 12:25 I agree with the RN Medical Screening Exam: Yes Risk & Benefit of care provided described in d/c instruction: Yes Diagnosis: RELATED CONDITIONS, UNSPECIFIED, SECOND TRIMESTER
== END 2017-01-05 12:20 | disposition home or self-care (01) ==
LOC: FBPOP 11:40
PROVIDERS: ATTEND Obstetrics & Gynecology
DX: O26.92 Pregnancy related conditions, unspecified, second trimester (principal); Z3A.23 23 weeks gestation of pregnancy
CPT/HCPCS: 99213

== ENCOUNTER 2018-04-27 10:52 | Emergency (ER) | payer BC ==
[2018-04-27 10:56] VITALS: BP 124/81; PULSE 93; RESP 18; TEMP 97.4
[2018-04-27] MEDS ORDERED: ONDANSETRON ODT 4 MG TAB PO STA (11:15)
[2018-04-27 11:40] LABS: Appearance,Urine Clear (Clear); Bilirubin,Urine Negative (Negative); Blood,Urine Negative (Negative); Color,Urine Yellow; Glucose,Urine (UA) Negative (Negative); Ketones,Urine Negative (Negative); Leukocyte Esterase,Urine Negative (Negative); Nitrite,Urine Negative (Negative); PH, Urine 7.5 (5.0-8.0); Protein,Urine Negative (Negative); Specific Gravity,Urine 1.015 (1.001-1.035); Urobilinogen,Urine <2.0 mg/dL (<2.0)
--- NOTE | 2018-04-27 11:50 | ED ---
General Adult HPI - General Chief complaint: Recheck/Abnormal Lab/Rx Stated complaint: poss ear infection, nvd Time Seen by Provider: 04/27/18 11:06 Source: patient, RN notes reviewed Mode of arrival: ambulatory Limitations: no limitations - History of Present Illness Initial comments: Patient's a 32-year-old female presenting to the emergency room today with a chief complaint of body aches, chills, cough congestion that started 2 days ago. She also admits that she began having symptoms of nausea vomiting diarrhea 2 days ago. She states that she has not had any vomiting today he has been able to keep down liquids. Patient does admit to body aches. She does admit that people at home with had similar symptoms. Patient does also admit that she was worried about possible UTI. She's also had some pain to the left ear and was worried about infection. She states that she does have a history of excessive earwax and unsure if it's related. Denies any other complaints or symptoms. Patient denies any recent shortness of breath, chest pain, back pain, abdominal pain, nausea or vomiting, headaches or visual changes, or any other complaints. - Related Data Previous Rx's Medication Instructions Recorded Ibuprofen [Motrin] 600 mg PO Q6HR PRN #30 tab 04/12/17 Ondansetron Odt [Zofran ODT] 4 mg PO Q8HR PRN #20 tab 04/27/18 Allergies Allergy/AdvReac Type Severity Reaction Status Date / Time aspirin Allergy Anaphylaxis Verified 04/27/18 10:56 cephalexin [From Keflex] Allergy Anaphylaxis Verified 04/27/18 10:56 Review of Systems ROS Statement: Those systems with pertinent positive or pertinent negative responses have been documented in the HPI. ROS Other: All systems not noted in ROS Statement are negative. Past Medical History Past Medical History: No Reported History Additional Past Medical History / Comment(s): +HSV screen last year, no outbreak every per pt History of Any Multi-Drug Resistant Organisms: None Reported Past Surgical History: Breast Surgery Additional Past Surgical History / Comment(s): turmor removed from right breast in 2005, I&D of boil on right leg, no MRSA Past Anesthesia/Blood Transfusion Reactions: No Reported Reaction Past Psychological History: Anxiety, No Psychological Hx Reported Smoking Status: Former smoker Past Alcohol Use History: None Reported Past Drug Use History: None Reported - Past Family History Mother Family Medical History: Thyroid Disorder Father Additional Family Medical History / Comment(s): pt states none Son(s) Family Medical History: Asthma General Exam - General Exam Comments Initial Comments: General: The patient is awake and alert, in no distress, and does not appear acutely ill. Eye: There is normal conjunctiva bilaterally. No signs of icterus. Ears, nose, mouth and throat: There are moist mucous membranes and no oral lesions. Cerumen impaction bilaterally. Neck: The neck is supple. Cardiovascular: There is a regular rate and rhythm. No murmur, rub or gallop is appreciated. Respiratory: Lungs are clear to auscultation, respirations are non-labored, breath sounds are equal. No wheezes, stridor, rales, or rhonchi. Musculoskeletal: Normal ROM, no tenderness. Neurological: A&O x 3. CN II-XII intact, There are no obvious motor or sensory deficits. Coordination appears grossly intact. Speech is normal. Skin: Skin is warm and dry and no rashes or lesions are noted. Psychiatric: Cooperative, appropriate mood & affect, normal judgment. Limitations: no limitations Course Vital Signs 04/27/18 10:54 Temperature 97.4 F L Pulse Rate 93 Respiratory 18 Rate Blood Pressure 124/81 O2 Sat by Pulse 100 Oximetry Medical Decision Making - Medical Decision Making Patient is strep test negative. Urinalysis showed no sign of infection. Was discussed with patient about further evaluation with labs and IV which she has declined. She did have symptoms of nausea vomiting diarrhea the past 2 days. The nausea is improved she's been able to keep down liquids. She does admit to bodyaches and chills with upper respiratory symptoms. Was discussed about viral illness most likely influenza. Patient outside treatment range at this time. Will be treated with Zofran so she can increase fluids. Advised Tylenol Motrin for body aches and chills. Advised following up with family doctor return if any symptoms increase or worsen. - Lab Data Lab Results 04/27/18 04/27/18 04/27/18 Range/Units 11:15 11:15 11:15 Urine Color Yellow Urine Appearance Clear (Clear) Urine pH 7.5 (5.0-8.0) Ur Specific [place] 1.015 (1.001-1.035) Urine Protein Negative (Negative) Urine Glucose (UA) Negative (Negative) Urine Ketones Negative (Negative) Urine Blood Negative (Negative) Urine Nitrite Negative (Negative) Urine Bilirubin Negative (Negative) Urine Urobilinogen <2.0 (<2.0) mg/dL Ur Leukocyte Esterase Negative (Negative) Urine HCG, Qual Not Detected (Not Detectd) Group A Strep Rapid Negative (Negative) Disposition Clinical Impression: Influenza Disposition: HOME SELF-CARE Condition: Good Instructions: Influenza (DC) Additional Instructions: Please use medication as discussed. Please follow-up with family doctor in the next 2 days of symptoms have not improved. Please return to emergency room if the symptoms increase or worsen or for any other concerns. Prescriptions: Ondansetron Odt [Zofran ODT] 4 mg PO Q8HR PRN #20 tab PRN Reason: Nausea Is patient prescribed a controlled substance at d/c from ED?: No Referrals: None,Stated [Primary Care Provider] - 1-2 days Time of Disposition: 11:49
== END 2018-04-27 11:52 | disposition home or self-care (01) ==
LOC: EC 10:52
DX: J11.1 Influenza due to unidentified influenza virus with other respiratory manifestations (principal); Z88.6 Allergy status to analgesic agent; Z88.1 Allergy status to other antibiotic agents; Z87.891 Personal history of nicotine dependence
CPT/HCPCS: 81003; 81025; 87081; 87430; 99284

== ENCOUNTER → 2018-09-04 | Outpatient (CLI) | payer BC ==
--- NOTE | 2018-09-17 23:32 | EM ---
EVENT MONITOR EVENT MONITOR: DATE OF SERVICE: 09/04/2018. INDICATION: Palpitations. The patient was monitored for 7 days. The baseline rhythm appeared to be a sinus mechanism with a heart rate of 93 beats per minute. Besides that, and during the 7 days of monitoring, the patient continued to be in sinus tachycardia with a heart rate between 100 and 120 beats per minute. No evidence of arrhythmia noted besides the sinus tachycardia. No evidence of any sinus pause or sinus arrest and no evidence of any advanced AV block. No evidence of any SVT and no evidence of any VT noted. CONCLUSION: 1. This is a 7-day event monitor. 2. Sinus rhythm as a baseline mechanism. 3. The patient continued to be in sinus tachycardia throughout these 7 days of monitoring. 4. The sinus tachycardia was between 100 and 120 beats per minute, but the patient did have multiple episodes with a heart rate in the 140s and 150s. 5. No evidence of any advanced AV block seen. 6. There is no evidence of any SVT or VT. 7. There is no evidence of any sinus pause or sinus arrest. MMODL / IJN: [id number] /
== END | disposition home or self-care (01) ==
LOC: RADECHMAIN 12:08
PROVIDERS: ATTEND Family Medicine
DX: R00.0 Tachycardia, unspecified (principal); R00.2 Palpitations
CPT/HCPCS: 93270

== ENCOUNTER 2018-11-11 12:33 | Emergency (ER) | payer BC ==
[2018-11-11 12:54] VITALS: BP 111/75; PULSE 90; RESP 18; TEMP 98.5
[2018-11-11] MEDS ORDERED: KETOROLAC 30 MG/ML 1 ML VIAL IM STA (14:27)
--- NOTE | 2018-11-11 14:35 | ED ---
Fall HPI - General Chief Complaint: Fall Stated Complaint: SOB Time Seen by Provider: 11/11/18 14:21 Source: patient Mode of arrival: wheelchair - History of Present Illness Initial Comments: Patient 33-year-old female presents emergency department after fall. Patient reports last night she jumped over a guard railing slipped into a metal railing. Patient reports an abrasion to the anterior aspect of the left lower leg and pain and swelling on the right knee. Patient reports the pain in the right knee is exacerbated with weightbearing and alleviated at rest. Patient also reports an abrasion inferior to the right breast and along the sternum. Patient also reports pain on palpation of that region. Patient reports the pain is exacerbated on full inspiration. Patient reports Chest pain is reproducible with palpation. Patient reports taking [id number] analgesics with minimal improvement. Patient denies headaches, blurry vision, dizziness, lightheadedness, nausea vomiting. Patient denies any head trauma. - Related Data Home Medications Medication Instructions Recorded Confirmed Ferrous Sulfate [Feosol] 325 mg PO BID 11/11/18 11/11/18 Metoprolol Succinate (ER) [Toprol 25 mg PO DAILY 11/11/18 11/11/18 XL] busPIRone HCl [Buspar] 5 mg PO BID 11/11/18 11/11/18 Allergies Allergy/AdvReac Type Severity Reaction Status Date / Time aspirin Allergy Anaphylaxis Verified 11/11/18 12:54 cephalexin [From Keflex] Allergy Anaphylaxis Verified 11/11/18 12:54 Review of Systems ROS Statement: Those systems with pertinent positive or pertinent negative responses have been documented in the HPI. ROS Other: All systems not noted in ROS Statement are negative. Past Medical History Past Medical History: No Reported History Additional Past Medical History / Comment(s): +HSV screen, mitral valve regurgitation, sinus arrhythmia tachycardia History of Any Multi-Drug Resistant Organisms: None Reported Past Surgical History: Breast Surgery Additional Past Surgical History / Comment(s): turmor removed from right breast in 2005, I&D of boil on right leg, no MRSA Past Anesthesia/Blood Transfusion Reactions: No Reported Reaction Past Psychological History: Anxiety Smoking Status: Former smoker Past Alcohol Use History: None Reported Past Drug Use History: None Reported - Past Family History Mother Family Medical History: Thyroid Disorder Father Additional Family Medical History / Comment(s): pt states none Son(s) Family Medical History: Asthma General Exam - General Exam Comments Initial Comments: General: Well-developed well-nourished distress HEENT: Normocephalic/atraumatic, PERLL, pharynx erythema, swallowing well, EAC no erythema, no exudates, TM clear, no cervical lymph nodes Neck: Supple, nontender, trachea midline Chest/Lungs: Normal respirations, no signs of respiratory distress clear to auscultation bilaterally no wheezes, rales, rhonchi Cardiac: Regular rate and rhythm, normal S1-S2, no murmurs rubs or gallops Abdomen/GI: Soft nontender, bowel sounds equal or quadrant x4, no guarding, no rebound no CVA tenderness Musculoskeletal: Abrasion and mild swelling along the anterior aspect of the left lower leg, pain with palpation in the region., Right knee edema and pain. Pain in the right knee exacerbated with weightbearing, limited range of motion of the right knee, abrasion inferior to the right breast and along the sternum, reproducible chest pain with palpation in the region with abrasion. Skin: Warmth, no rashes or lesions, no cyanosis or diaphoresis Neurologic: AAO x 3, CN 2-12 intact, Psychiatric: Mood and affect normal, judgment normal Limitations: no limitations General appearance: alert, in no apparent distress Head exam: Present: atraumatic, normocephalic, normal inspection Course Vital Signs 11/11/18 12:48 Temperature 98.5 F Pulse Rate 90 Respiratory 18 Rate Blood Pressure 111/75 O2 Sat by Pulse 99 Oximetry Medical Decision Making - Medical Decision Making Patient is a 33-year-old female presenting to emergency Department after fall. X-ray of the right knee is unremarkable. Chest x-ray is unremarkable. Patient has suffered contusion to the right knee, left lower leg and the chest. Advised the patient to apply cold compress an alternate between Tylenol and ibuprofen for pain control. Patient advised to follow with orthopedics regarding the knee pain. Strict return parameters were thoroughly discussed with patient who is understanding and agreeable. Case discussed with physician. Disposition Clinical Impression: Knee pain, right, Fall Disposition: HOME SELF-CARE Condition: Stable Instructions (If sedation given, give patient instructions): Swollen Knee Joint (ED) Additional Instructions: Please follow with orthopedics. Please return to emergency department if symptoms worsen. Elevate leg and apply ice compress to minimize swelling. Alternate between Tylenol and ibuprofen for pain control. Is patient prescribed a controlled substance at d/c from ED?: No Referrals: Hernandez Sarah DO [Primary Care Provider] - 1-2 days Alf Lambert DO [Doctor of Osteopathic Medicine] - 1-2 days Time of Disposition: 15:38
--- NOTE | 2018-11-11 14:46 | XR ---
EXAMINATION TYPE: XR chest 2V DATE OF EXAM: 11/11/2018 COMPARISON: NONE TECHNIQUE: PA and lateral views submitted. HISTORY: Pain FINDINGS: The lungs are clear and there is no pneumothorax, pleural effusion, or focal pneumonia. Hyperinflat ion suggests COPD. IMPRESSION: 1. No acute process.
--- NOTE | 2018-11-11 14:47 | XR ---
EXAMINATION TYPE: XR knee complete RT DATE OF EXAM: 11/11/2018 COMPARISON: NONE HISTORY: Pain TECHNIQUE: Three views are submitted. FINDINGS: Osseous structures are intact. No acute fracture seen. Mild narrowing of the medial compartment of the knee joint. No erosive changes. Small amount of fluid in the suprapatellar bursa. IMPRESSION: 1. No acute fracture or dislocation. Small amount of fluid in the suprapatellar bursa. If there is c oncern for internal derangement correlate with MRI.
== END 2018-11-11 15:55 | disposition home or self-care (01) ==
LOC: EC 12:33
DX: M25.561 Pain in right knee (principal); S80.812A Abrasion, left lower leg, initial encounter; S20.319A Abrasion of unspecified front wall of thorax, initial encounter; R60.0 Localized edema; F41.9 Anxiety disorder, unspecified; Z87.891 Personal history of nicotine dependence; Z88.1 Allergy status to other antibiotic agents; Z88.6 Allergy status to analgesic agent; Z79.899 Other long term (current) drug therapy; Z98.890 Other specified postprocedural states; W01.0XXA Fall on same level from slipping, tripping and stumbling without subsequent striking against object, initial encounter; Y93.39 Activity, other involving climbing, rappelling and jumping off
CPT/HCPCS: 73562; 71046; 99283; 96372; J1885

== ENCOUNTER 2019-01-08 16:36 | Inpatient (IN) | payer BC ==
[2019-01-08 17:32] LABS: Appearance,Urine Clear (Clear); Bilirubin,Urine Negative (Negative); Blood,Urine Negative (Negative); Color,Urine Light Yellow; Glucose,Urine (UA) Negative (Negative); Ketones,Urine Negative (Negative); Leukocyte Esterase,Urine Negative (Negative); Nitrite,Urine Negative (Negative); Protein,Urine Negative (Negative); Specific Gravity,Urine 1.003 (1.001-1.035); Urobilinogen,Urine <2.0 mg/dL (<2.0)
[2019-01-08 17:42] LABS: Amphetamine Screen,Urine Not Detected (NotDetected); Barbiturate Screen,Urine Not Detected (NotDetected); Benzodiazepines Screen,Urine Not Detected (NotDetected); Cocaine Screen,Urine Detected (NotDetected); Methadone Screen, Urine Not Detected (NotDetected); Opiate Screen,Urine Not Detected (NotDetected); Oxycodone Screen, Urine Not Detected (NotDetected); Phencyclidine Screen,Urine Not Detected (NotDetected); Tricyclic Antidepressant,Urine Not Detected (NotDetected); Urn Cannabinoid Scrn Detected (NotDetected)
--- NOTE | 2019-01-08 17:45 | ED ---
Psych HPI - General Chief Complaint: Psychiatric Symptoms Stated Complaint: mental health Time Seen by Provider: 01/08/19 16:50 Source: patient, RN notes reviewed, old records reviewed Mode of arrival: ambulatory - History of Present Illness Initial Comments: This is a 33-year-old female the ER for evaluation of psychiatric illness and suicidal thoughts. Patient has no plan to harm herself but states it is likely that her life that she can't handle the stresses getting to her. Denies drugs or alcohol. No history of psychiatric illness. Patient is not significantly anticipating and history of present illness MD Complaint: suicidal ideation, feels depressed -: unknown Associated Psychiatric Symptoms: depression, suicidal ideation History of same: Yes Quality: intermittent, getting worse Improves With: none Associated Symptoms: denies other symptoms Treatments Prior to Arrival: placed on mental health hold - Related Data Home Medications Medication Instructions Recorded Confirmed Metoprolol Succinate (ER) [Toprol 25 mg PO DAILY 11/11/18 01/08/19 XL] busPIRone HCl [Buspar] 5 mg PO BID 11/11/18 01/08/19 Allergies Allergy/AdvReac Type Severity Reaction Status Date / Time aspirin Allergy Anaphylaxis Verified 01/08/19 17:25 cephalexin [From Keflex] Allergy Anaphylaxis Verified 01/08/19 17:25 Review of Systems ROS Statement: Those systems with pertinent positive or pertinent negative responses have been documented in the HPI. ROS Other: All systems not noted in ROS Statement are negative. Past Medical History Past Medical History: No Reported History Additional Past Medical History / Comment(s): +HSV screen, mitral valve regurgitation, sinus arrhythmia tachycardia History of Any Multi-Drug Resistant Organisms: None Reported Past Surgical History: Breast Surgery Additional Past Surgical History / Comment(s): turmor removed from right breast in 2005, I&D of boil on right leg, no MRSA Past Anesthesia/Blood Transfusion Reactions: No Reported Reaction Past Psychological History: Anxiety, Depression Smoking Status: Current every day smoker Past Alcohol Use History: None Reported Past Drug Use History: None Reported - Past Family History Mother Family Medical History: Thyroid Disorder Father Additional Family Medical History / Comment(s): pt states none Son(s) Family Medical History: Asthma General Exam Limitations: no limitations General appearance: alert, in no apparent distress Head exam: Present: atraumatic, normocephalic, normal inspection Eye exam: Present: normal appearance, PERRL, EOMI. Absent: scleral icterus, conjunctival injection, periorbital swelling ENT exam: Present: normal exam, mucous membranes moist Neck exam: Present: normal inspection. Absent: tenderness, meningismus, lymphadenopathy Respiratory exam: Present: normal lung sounds bilaterally. Absent: respiratory distress, wheezes, rales, rhonchi, stridor Cardiovascular Exam: Present: regular rate, normal rhythm, normal heart sounds. Absent: systolic murmur, diastolic murmur, rubs, gallop, clicks GI/Abdominal exam: Present: soft, normal bowel sounds. Absent: distended, tenderness, guarding, rebound, rigid Extremities exam: Present: normal inspection, full ROM, normal capillary refill. Absent: tenderness, pedal edema, joint swelling, calf tenderness Back exam: Present: normal inspection Neurological exam: Present: alert, oriented X3, CN II-XII intact Psychiatric exam: Present: normal affect, normal mood Skin exam: Present: warm, dry, intact, normal color. Absent: rash Course Vital Signs 01/08/19 16:41 Temperature 98.3 F Pulse Rate 108 H Respiratory 16 Rate Blood Pressure 137/76 O2 Sat by Pulse 100 Oximetry Medical Decision Making - Medical Decision Making 33 female seen and evaluated with psychiatry will be admitted for psychiatric evaluation and treatment - Lab Data Lab Results 01/08/19 01/08/19 Range/Units 17:20 17:20 Urine Color Light Yellow Urine Appearance Clear (Clear) Urine pH 6.0 (5.0-8.0) Ur Specific [place] 1.003 (1.001-1.035) Urine Protein Negative (Negative) Urine Glucose (UA) Negative (Negative) Urine Ketones Negative (Negative) Urine Blood Negative (Negative) Urine Nitrite Negative (Negative) Urine Bilirubin Negative (Negative) Urine Urobilinogen <2.0 (<2.0) mg/dL Ur Leukocyte Esterase Negative (Negative) Urine HCG, Qual Not Detected (Not Detectd) Urine Opiates Screen Not Detected (NotDetected) Ur Oxycodone Screen Not Detected (NotDetected) Urine Methadone Screen Not Detected (NotDetected) Ur Propoxyphene Screen Not Detected (NotDetected) Ur Barbiturates Screen Not Detected (NotDetected) U Tricyclic Antidepress Not Detected (NotDetected) Ur Phencyclidine Scrn Not Detected (NotDetected) Ur Amphetamines Screen Not Detected (NotDetected) U Methamphetamines Scrn Not Detected (NotDetected) U Benzodiazepines Scrn Not Detected (NotDetected) Urine Cocaine Screen Detected H (NotDetected) U Marijuana (THC) Screen Detected H (NotDetected) Disposition Clinical Impression: Acute anxiety, Depression, Suicidal ideation Disposition: TRANSFER TO PSYCH HOSP/UNIT Condition: Fair Is patient prescribed a controlled substance at d/c from ED?: No Referrals: Hernandez Sarah DO [Primary Care Provider] - 1-2 days
[2019-01-08] MEDS ORDERED: ACETAMINOPHEN TAB 325 MG TAB PO PRN (23:09)
[2019-01-08] MEDS ORDERED: MAG HYDROX/AL HYDROX/SIMETH 30 ML CUP PO PRN (23:09)
[2019-01-08] MEDS ORDERED: MAGNESIUM HYDROXIDE 2,400 MG/10 ML CUP PO PRN (23:09)
[2019-01-08] MEDS ORDERED: ZIPRASIDONE 20 MG VIAL IM PRN (23:09)
[2019-01-08] MEDS ORDERED: LORazepam 1 MG TAB PO PRN (23:09)
[2019-01-09 08:58] LABS: Basophils # (A) 0.1 k/uL (0-0.2); Basophils % (A) 1 %; Eosinophils # (A) 0.2 k/uL (0-0.7); Eosinophils % (A) 3 %; HCT 36.5 % (34.0-46.0); HGB 12.6 gm/dL (11.4-16.0); Lymphocytes # (A) 2.6 k/uL (1.0-4.8); Lymphocytes % (A) 39 %; MCHC 34.4 g/dL (31.0-37.0); MCV 84.1 fL (80.0-100.0); Mean Platelet Volume 7.4; Monocytes # (A) 0.3 k/uL (0-1.0); Monocytes % (A) 4 %; Neutrophils # (A) 3.3 k/uL (1.3-7.7); Neutrophils % (A) 51 %; Platelet Count 239 k/uL (150-450); RBC 4.34 m/uL (3.80-5.40); RDW 14.2 % (11.5-15.5); WBC 6.5 k/uL (3.8-10.6)
[2019-01-09 09:13] LABS: ALT 17 U/L (9-52); AST 17 U/L (14-36); African American GFR (CKD) >90 (>60 ml/min/1.73 sqM); Albumin 3.7 g/dL (3.5-5.0); Alkaline Phosphatase 40 U/L (38-126); Anion Gap 8 mmol/L; Bilirubin, Delta 0.1 mg/dL (0.0-0.2); Blood Urea Nitrogen 8 mg/dL (7-17); Carbon Dioxide 23 mmol/L (22-30); Chloride 110 mmol/L (98-107); Glucose 93 mg/dL (74-99); Potassium 3.7 mmol/L (3.5-5.1); Sodium 141 mmol/L (137-145); Total Bilirubin 1.1 mg/dL (0.2-1.3); Total Protein 6.5 g/dL (6.3-8.2)
[2019-01-09] MEDS: NICOTINE 21MG/24HR PATCH TRANSDERM SCH (09:22)
[2019-01-09] MEDS: METOPROLOL SUCCINATE (ER) 25 MG TAB.ER.24H PO SCH (09:23)
[2019-01-09] MEDS ORDERED: busPIRone HCl 10 MG TAB PO PRN (11:46)
--- NOTE | 2019-01-09 12:01 | P.HP ---
Psychiatric H&P - . H&P Date: 01/09/19 History & Physical: Allergies Allergy/AdvReac Type Severity Reaction Status Date / Time aspirin Allergy Anaphylaxis Verified 01/08/19 17:25 cephalexin [From Keflex] Allergy Anaphylaxis Verified 01/08/19 17:25 Vital Signs Temp 98.4 F 01/09/19 06:37 Pulse 70 01/09/19 09:24 Resp 18 01/09/19 09:24 BP 124/88 01/09/19 09:24 Pulse Ox 97 01/08/19 22:15 Intake & Output 01/08/19 01/09/19 01/09/19 18:59 06:59 18:59 Weight 65.771 kg 65.907 kg Laboratory Last Values WBC 6.5 k/uL (3.8-10.6) 01/09/19 08:02 RBC 4.34 m/uL (3.80-5.40) 01/09/19 08:02 Hgb 12.6 gm/dL (11.4-16.0) 01/09/19 08:02 Hct 36.5 % (34.0-46.0) 01/09/19 08:02 MCV 84.1 fL (80.0-100.0) 01/09/19 08:02 MCH 29.0 pg (25.0-35.0) 01/09/19 08:02 MCHC 34.4 g/dL (31.0-37.0) 01/09/19 08:02 RDW 14.2 % (11.5-15.5) 01/09/19 08:02 Plt Count 239 k/uL (150-450) 01/09/19 08:02 Neutrophils % 51 % 01/09/19 08:02 Lymphocytes % 39 % 01/09/19 08:02 Monocytes % 4 % 01/09/19 08:02 Eosinophils % 3 % 01/09/19 08:02 Basophils % 1 % 01/09/19 08:02 Neutrophils # 3.3 k/uL (1.3-7.7) 01/09/19 08:02 Lymphocytes # 2.6 k/uL (1.0-4.8) 01/09/19 08:02 Monocytes # 0.3 k/uL (0-1.0) 01/09/19 08:02 Eosinophils # 0.2 k/uL (0-0.7) 01/09/19 08:02 Basophils # 0.1 k/uL (0-0.2) 01/09/19 08:02 Sodium 141 mmol/L (137-145) 01/09/19 08:02 Potassium 3.7 mmol/L (3.5-5.1) 01/09/19 08:02 Chloride 110 mmol/L (98-107) H 01/09/19 08:02 Carbon Dioxide 23 mmol/L (22-30) 01/09/19 08:02 Anion Gap 8 mmol/L 01/09/19 08:02 BUN 8 mg/dL (7-17) 01/09/19 08:02 Creatinine 0.92 mg/dL (0.52-1.04) 01/09/19 08:02 Est GFR (CKD-EPI)AfAm >90 (>60 ml/min/1.73 sqM) 01/09/19 08:02 Est GFR (CKD-EPI)NonAf 84 (>60 ml/min/1.73 sqM) 01/09/19 08:02 Glucose 93 mg/dL (74-99) 01/09/19 08:02 Calcium 9.0 mg/dL (8.4-10.2) 01/09/19 08:02 Total Bilirubin 1.1 mg/dL (0.2-1.3) 01/09/19 08:02 Conjugated Bilirubin 0.0 mg/dL (0.0-0.3) 01/09/19 08:02 Unconjugated Bilirubin 1.0 mg/dL (0.0-1.1) 01/09/19 08:02 Delta Bilirubin 0.1 mg/dL (0.0-0.2) 01/09/19 08:02 AST 17 U/L (14-36) 01/09/19 08:02 ALT 17 U/L (9-52) 01/09/19 08:02 Alkaline Phosphatase 40 U/L (38-126) 01/09/19 08:02 Total Protein 6.5 g/dL (6.3-8.2) 01/09/19 08:02 Albumin 3.7 g/dL (3.5-5.0) 01/09/19 08:02 TSH 1.900 mIU/L (0.465-4.680) 01/09/19 08:02 Urine Color Light Yellow 01/08/19 17:20 Urine Appearance Clear (Clear) 01/08/19 17:20 Urine pH 6.0 (5.0-8.0) 01/08/19 17:20 Ur Specific [place] 1.003 (1.001-1.035) 01/08/19 17:20 Urine Protein Negative (Negative) 01/08/19 17:20 Urine Glucose (UA) Negative (Negative) 01/08/19 17:20 Urine Ketones Negative (Negative) 01/08/19 17:20 Urine Blood Negative (Negative) 01/08/19 17:20 Urine Nitrite Negative (Negative) 01/08/19 17:20 Urine Bilirubin Negative (Negative) 01/08/19 17:20 Urine Urobilinogen <2.0 mg/dL (<2.0) 01/08/19 17:20 Ur Leukocyte Esterase Negative (Negative) 01/08/19 17:20 Urine HCG, Qual Not Detected (Not Detectd) 01/08/19 17:20 Urine Opiates Screen Not Detected (NotDetected) 01/08/19 17:20 Ur Oxycodone Screen Not Detected (NotDetected) 01/08/19 17:20 Urine Methadone Screen Not Detected (NotDetected) 01/08/19 17:20 Ur Propoxyphene Screen Not Detected (NotDetected) 01/08/19 17:20 Ur Barbiturates Screen Not Detected (NotDetected) 01/08/19 17:20 U Tricyclic Antidepress Not Detected (NotDetected) 01/08/19 17:20 Ur Phencyclidine Scrn Not Detected (NotDetected) 01/08/19 17:20 Ur Amphetamines Screen Not Detected (NotDetected) 01/08/19 17:20 U Methamphetamines Scrn Not Detected (NotDetected) 01/08/19 17:20 U Benzodiazepines Scrn Not Detected (NotDetected) 01/08/19 17:20 Urine Cocaine Screen Detected (NotDetected) H 01/08/19 17:20 U Marijuana (THC) Screen Detected (NotDetected) H 01/08/19 17:20 01/09/19 12:01 IDENTIFYING DATA: Patient is a 33-year-old -[place] female who currently lives in a townhouse has 3 kids is unmarried and 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 HPI: Patient presented to the hospital after significant stressors and depression/anxiety with suicidal ideations with no plan. Patient was positive for cocaine and marijuana on her UDS prior to admission. Patient was agreeable to streaked to insurance underwriter in the office was directable and calm however was tearful when describing her situation and stressors. Patient spoke about feeling ongoing depression and increase in her anxiety for the past several months. She states that her 1-year-old daughter has complete androgen insensitivity syndrome and described the challenges of getting her treatment and worrying about her future and all the unknowns that come with the rare disease. Patient explained that she had a complicated and thought that the baby was can have Down syndrome. She states that [facility] [place] with developer advocate urologist and poultry boner for her condition and is finding it stressful. She states that she is also having difficulties at work feeling more stressed as there is a new demand generation manager and high turnover of employees and she is feeling more burden on her. She states that it is difficult being away from her children as she recently had to take them to [place] to be with her father as she is being unable to care for them here and provide for them by going to work. She states that she feels she is missing out on a lot of their milestones and was tearful about this. Patient also spoke about having been diagnosed recently with HSV however has not shown any signs or symptoms in her genital areas. She states that she had a screening test done by her doctor as she suspected cheating from her boyfriend which turned out to be true and states that since then they have been broken up after a two-year relationship. Patient also spoke about having poor support in the area claiming that she does have family including mother father and relatives however feels that the year not helping her with her kids and day-to-day duties. She admits to some guilt, increase in anxiety and depression. She admits to poor sleep and suicidal ideations with no plan. Patient denies any current suicidal or homicidal intent or plan. At this time patient denies any auditory or visual hallucinations. Patient denies any flight of ideas racing thoughts and increased in goal directed behavior. Patient admits to using cocaine for her first time prior to coming to the hospital and also has been using marijuana edibles approximately 2-3 times per week to help her feel relaxed. She endorses smoking cigarettes talks only 3-5 cigarettes per day. She denies any other recreational drugs or alcohol use. PAST PSYCHIATRIC HISTORY: Patient states that she has never been admitted to a psychiatric hospital. She denies any previous suicide attempts. She denies any formal psychiatric outpatient follow-up. She claims that she was taking BuSpar 5 mg twice a day for anxiety for the past 2 months however is finding it not effective. She admits to a history of depression and anxiety. PMH: Claims to be HSV positive, have mitral valve regurg. ALLERGIES: as per EMR CHEMICAL DEPENDENCY HISTORY: as per HPI FAMILY PSYCHIATRIC/SUBSTANCE USE HISTORY: denies SOCIAL HISTORY: She states that she has born and raised in [facility] and moved to [place]. She states that she has moved to [place] recently to be closer to family. Patient states that she has 1 year of college education. 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 Patient is single and unmarried. MENTAL STATUS EXAM: General Appearance: Patient appears to be stated age is alert, directable and cooperative. Patient is tearful and in mild distress during interview. Patient has fair hygiene of her grooming. Behavior: Patient is calmly seated without any agitated behavior. Speech: Patient's speech is fluent and nonpressured. Soft tone Mood/Affect: Patient reports their mood is depressed, affect is congruent and tearful Suicidality/Homicidality: Patient denies having any current suicidal or homicidal ideation intent or plan. Perceptions: Patient denies any auditory or visual hallucinations. Though content/process: There is no evidence of any delusional thought content and thought process is linear and goal-directed. Memory and concentration: AOX3, grossly intact for the purposes of this session. Can spell "WORLD" backwards Judgment and insight: fair STRENGTHS/WEAKNESSES: strength is that patient has a stable job and housing. Weaknesses patient has poor support and multiple stressors at home. INTELLECT: average IMPRESSIONS: Major depressive disorder, moderate-severe Anxiety disorder unspecified Cocaine abuse Cannabis use disorder PLAN: -Patient is admitted under voluntary status to MHU for stabilization of psychiatric symptoms and safety. Patient signed adult voluntary form and medication consent and is placed in patient's chart. -Medications : Will start patient on Zoloft 50 mg daily for mood and anxiety. Will restart BuSpar at 10 mg twice a day when necessary for anxiety. Will start melatonin 3 mg daily at bedtime for sleep. -Geodon and Ativan PRN for agitation/aggression -Patient was counselled on substance abuse and desired to cut back on use -Patient was informed of the risks, benefits and side effects of the medication and patient verbally consented to taking the medications. Patient signed med consent form and was placed in chart. -NRT - nicotine patch -SW on board for discharge planning
[2019-01-09] MEDS: SERTRALINE 50 MG TAB PO SCH (12:26)
--- NOTE | 2019-01-09 18:59 | P.CONS ---
History of Present Illness - Reason for Consult Consult date: 01/09/19 Medical management Requesting physician: Dom Tovar - Chief Complaint Suicidal - History of Present Illness Consultation: This is a 33-year-old patient who follows at the office of Dr. Sarah. Chronic stable medical conditions include mitral valve regurgitation, sinus arrhythmia and tachycardia. Patient does take a low dose beta jarad. Patient became rather depressed suicidal and decided to present to the ER. Several problems are bothering her. [id number] child has got some medical issues. 3 other kids at an weakness. She also contracted HSV through a sexual partners of 13 years. Patient also has a growth in the lower part of the vagina that is p ainful and is not able to keep her appointment with performance architect Dr. Dunne. Patient is employed at all [employer]. Patient smokes about 3-5 cigarettes a day. Does marijuana daily. Did do cocaine once last week. Lives by herself. No fever or chills. No trouble with bowel movements. Patient is concerned about a blood clot in the left calf and she often gets discomfort at the same place. Patient is requesting a genital inspection Review of systems: GEN.: None EYES: None HEENT: None NECK: None RESPIRATORY: None CARDIOVASCULAR: None GASTROINTESTINAL: None GENITOURINARY: As above MUSCULOSKELETAL: Pain and discomfort in the left calf LYMPHATICS: None HEMATOLOGICAL: None PSYCHIATRY: Anxiety depression NEUROLOGICAL: None Past medical history to include: Mitral valve regurgitation, sinus arrhythmia, sinus tachycardia, HSV positive Social history: Smokes anywhere from 3-5 cigars a day, does smoke marijuana daily, hasn't cocaine once recently. Lives alone. Works of the [employer] in [facility] [employer] [facility] Family history: Thyroid disorder Physical examination: VITAL SIGNS: BMI 22.8 98.3, 108, 16, 137/76, 100% room air GENERAL: Average built, sitting up, comfortable. EYES: Pupils equal. Conjunctiva normal. HEENT: External appearance of nose and ears normal, oral cavity grossly normal. NECK: JVD not raised; masses not palpable. HEART: First and second heart sounds are normal; no edema. LUNGS: Respiratory rate normal; clear to auscultation. ABDOMEN: Soft, nontender, liver spleen not palpable, no masses palpable. PSYCH: Alert and oriented x3; mood and affect normal. NEUROLOGICAL: Cranial nerves grossly intact; no facial asymmetry, power and sensation grossly intact. LYMPHATICS: No lymph nodes palpable in the axilla and neck Dermatological: Some tattoos Genital inspection done in the presence of die finisher forging [employer] SALES REPRESENTATIVE-that is a grape size mass at the lower end vagina. Tender. Smooth surface. INVESTIGATIONS, reviewed in the clinical context: White count 6.5 hemoglobin 12.6 potassium 3.7 bun 8 creatinine 0.92 TSH 1.9 Urine drug screen positive for cocaine and marijuana Assessment: -Major depression with suicidal ideation -Chronic nicotine dependence patient's cigarette smoker -Chronic marijuana recreational use, does smoke marijuana daily -1 time use of cocaine -Grape size tender mass at the lower end of vagina. This could be a large Bartholin's cyst or a nabothian cyst. Plan: Patient requests to see Dr. Dunne. We'll do a consultation for the same. The cyst rather tender. It has given patient difficulty in sitting. Patient's counseling in the use of marijuana cocaine and smoking. Patient should follow with Dr. Jolley upon discharge. Thank you Dr. Tovar Past Medical History Past Medical History: No Reported History Additional Past Medical History / Comment(s): +HSV screen, mitral valve regurgitation, sinus arrhythmia tachycardia History of Any Multi-Drug Resistant Organisms: None Reported Past Surgical History: Breast Surgery Additional Past Surgical History / Comment(s): turmor removed from right breast in 2005, I&D of boil on right leg, no MRSA Past Anesthesia/Blood Transfusion Reactions: No Reported Reaction Past Psychological History: Anxiety, Depression Smoking Status: Current every day smoker Past Alcohol Use History: None Reported Past Drug Use History: None Reported - Past Family History Mother Family Medical History: Thyroid Disorder Father Additional Family Medical History / Comment(s): pt states none Son(s) Family Medical History: Asthma Medications and Allergies Home Medications Medication Instructions Recorded Confirmed Type Metoprolol Succinate (ER) [Toprol 25 mg PO DAILY 11/11/18 01/08/19 History XL] busPIRone HCl [Buspar] 5 mg PO BID 11/11/18 01/08/19 History Allergies Allergy/AdvReac Type Severity Reaction Status Date / Time aspirin Allergy Anaphylaxis Verified 01/08/19 17:25 cephalexin [From Keflex] Allergy Anaphylaxis Verified 01/08/19 17:25 Physical Exam Vitals: Vital Signs Temp Pulse Pulse Resp BP BP Pulse Ox 01/09/19 09:24 70 18 124/88 01/09/19 06:37 98.4 F 61 18 113/66 01/09/19 01:09 99.1 F 80 18 120/82 01/08/19 22:15 91 20 129/77 97 01/08/19 16:41 98.3 F 108 H 16 137/76 100 Intake and Output 01/08/19 01/09/19 01/09/19 22:59 06:59 14:59 Other: Weight 65.771 kg 65.907 kg Results CBC & Chem 7: 01/09/19 08:02 01/09/19 08:02 Labs: Abnormal Lab Results - Last 24 Hours (Table) 01/08/19 01/09/19 Range/Units 17:20 08:02 Chloride 110 H (98-107) mmol/L Urine Cocaine Screen Detected H (NotDetected) U Marijuana (THC) Screen Detected H (NotDetected)
[2019-01-09] MEDS: MELATONIN 3 MG TABLET PO SCH (22:36)
[2019-01-10] MEDS: NICOTINE 21MG/24HR PATCH TRANSDERM SCH (08:38)
[2019-01-10] MEDS: SERTRALINE 50 MG TAB PO SCH (08:39)
[2019-01-10] MEDS: METOPROLOL SUCCINATE (ER) 25 MG TAB.ER.24H PO SCH (08:39)
--- NOTE | 2019-01-10 09:21 | P.OBCN ---
History of Present Illness Consult date: 01/10/19 Reason for consult: other (vaginal cyst) Chief complaint: Depression History of present illness: 33-year-old presented to the emergency room for medication change on her depression meds but when she said she did have suicidal ideation she was admitted for observation in the mental health unit. Her medical doctor on exam noted a small cyst at the vaginal opening. The patient says its mildly tender, especially when she wipes. Review of Systems All systems: negative Constitutional: Denies chills, Denies fever Eyes: denies blurred vision, denies pain Ears, nose, mouth and throat: Denies headache, Denies sore throat Cardiovascular: Denies chest pain, Denies shortness of breath Respiratory: Denies cough Gastrointestinal: Denies abdominal pain, Denies diarrhea, Denies nausea, Denies vomiting Genitourinary: Denies dysuria, Denies hematuria Musculoskeletal: Denies myalgias Integumentary: Denies pruritus, Denies rash Neurological: Denies numbness, Denies weakness Psychiatric: Denies anxiety, Denies depression Endocrine: Denies fatigue, Denies weight change Past Medical History Past Medical History: No Reported History Additional Past Medical History / Comment(s): +HSV screen, mitral valve regurgitation, sinus arrhythmia tachycardia History of Any Multi-Drug Resistant Organisms: None Reported Past Surgical History: Breast Surgery Additional Past Surgical History / Comment(s): turmor removed from right breast in 2005, I&D of boil on right leg, no MRSA Past Anesthesia/Blood Transfusion Reactions: No Reported Reaction Past Psychological History: Anxiety, Depression Smoking Status: Current every day smoker Past Alcohol Use History: None Reported Past Drug Use History: None Reported - Past Family History Mother Family Medical History: Thyroid Disorder Father Additional Family Medical History / Comment(s): pt states none Son(s) Family Medical History: Asthma Medications and Allergies Home Medications Medication Instructions Recorded Confirmed Type Metoprolol Succinate (ER) [Toprol 25 mg PO DAILY 11/11/18 01/08/19 History XL] busPIRone HCl [Buspar] 5 mg PO BID 11/11/18 01/08/19 History Allergies Allergy/AdvReac Type Severity Reaction Status Date / Time aspirin Allergy Anaphylaxis Verified 01/08/19 17:25 cephalexin [From Keflex] Allergy Anaphylaxis Verified 01/08/19 17:25 Exam Osteopathic Statement: *. No significant issues noted on an osteopathic structural exam other than those noted in the History and Physical/Consult. Vital Signs Temp Pulse Resp BP 01/10/19 08:39 79 129/85 01/10/19 06:48 98.7 F 93 16 111/68 01/09/19 09:24 70 18 124/88 Vaginal exam performed with an RN present. There is a 1.5 cm Bartholin's cyst on the right side of the vaginal opening. It is not tense, not inflamed or indurated. Results Result Diagrams: 01/09/19 08:02 01/09/19 08:02 Abnormal Lab Results - Last 24 Hours (Table) 01/09/19 Range/Units 08:02 Chloride 110 H (98-107) mmol/L Assessment and Plan (1) Bartholin's cyst Current Visit: Yes Status: Acute Code(s): N75.0 - CYST OF BARTHOLIN'S GLAND SNOMED Code(s): 05385692 Plan: 1. Since the patient on mental health and I don't have the proper equipment or procedure room to perform a cyst aspiration, I will place her on Bactrim for now. 2. In talking with the patient, I discovered she does have an appointment with Dr. Dunne in about 4 days. She can seen the Bactrim and then follow-up with him in the office for any further treatment that may be necessary.
--- NOTE | 2019-01-10 11:38 | P.PN ---
Progress Note - Text Progress Note Date: 01/10/19 Interval History: Patient was seen in her room this morning laying in her bed taking a nap however was calm directable and agreeable to speak to proposal manager writer knee office. She states that since she has been on the Zoloft she has been feeling less anxious and that her mood is improving. She states that she is able to go to some of the groups and is finding them helpful to work on her coping skills and speak with other people. She claims that she is eating well and has fair energy. She claimed th at last night she stayed up later watching TV with other patients however did sleep through the night. She asked about wanting to have a journal to write in while she is here on the unit to pass the time. At this time patient denies any suicidal or homical ideations, intent or plan. Patient denies any auditory, visual hallucinations and denies any paranoia or delusions. Patient denies any side effects from the medications and has been compliant with meds. Mental Status Exam: General Appearance: Patient appears to be stated age is alert, directable and cooperative. Patient has fair hygiene of her grooming. Behavior: Patient is calmly seated without any agitated behavior. Speech: Patient's speech is fluent and nonpressured. Mood/Affect: Patient reports their mood is improving mildly, affect is congruent Suicidality/Homicidality: Patient denies having any current suicidal or homicidal ideation intent or plan. Perceptions: Patient denies any auditory or visual hallucinations. Though content/process: There is no evidence of any delusional thought content and thought process is linear and goal-directed. Memory and concentration: AOX3, grossly intact for the purposes of this session. Judgment and insight: fair Assessment: Major depressive disorder, moderate-severe Anxiety disorder unspecified Cocaine abuse Cannabis use disorder Plan: -Patient continues to meet criteria for inpatient psychiatric admission for symptom stabilization and safety. Patient has signed adult voluntary form and medication consent and was placed in patient's chart. -Medications: Will increase Zoloft to 100 mg daily for anxiety and mood. We'll continue with BuSpar 10 mg twice a day as necessary for her anxiety. We'll continue with melatonin 3 mg daily at bedtime for sleep -When necessary Geodon and Ativan for agitation/aggression. -NRT - nicotine patch -SW on board for discharge planning.
--- NOTE | 2019-01-10 19:20 | US ---
EXAMINATION TYPE: US venous doppler duplex LE LT DATE OF EXAM: 01/10/2019 6:58 PM COMPARISON: NONE CLINICAL HISTORY: Rule out DVT. Left leg pain, swelling and numbness. SIDE PERFORMED: Left TECHNIQUE: The lower extremity deep venous system is examined utilizing real time linear array sonog yuri with graded compression, doppler sonography and color-flow sonography. VESSELS IMAGED: External Iliac Vein (EIV) Common Femoral Vein Deep Femoral Vein Greater Saphenous Vein * Femoral Vein Popliteal Vein Small Saphenous Vein * Proximal Calf Veins (* superficial vessels) Left Leg: Negative for DVT IMPRESSION: Negative exam. No evidence of deep venous thrombosis in the left leg.
[2019-01-10] MEDS: SULFAMETHOX-TMP 800-160MG 1 EACH TAB PO SCH (21:16)
[2019-01-10] MEDS: MELATONIN 3 MG TABLET PO SCH (21:16)
[2019-01-11] MEDS: NICOTINE 21MG/24HR PATCH TRANSDERM SCH (08:23)
[2019-01-11] MEDS: SERTRALINE 100 MG TAB PO SCH (08:24)
[2019-01-11] MEDS: METOPROLOL SUCCINATE (ER) 25 MG TAB.ER.24H PO SCH (08:24)
[2019-01-11] MEDS: SULFAMETHOX-TMP 800-160MG 1 EACH TAB PO SCH ×2 (08:24→22:12)
--- NOTE | 2019-01-11 19:52 | P.PN ---
Progress Note - Text Progress Note Date: 01/11/19 IDENTIFICATION DATA: 33-year-old -[place] female admitted to [facility] with worsening anxiety and depression. INTERVAL HISTORY: Patient was seen today. She reports being compliant with her medications. No side effects reported. She reports significant improvement of her depression and anxiety with medications. Reports good sleep and appetite. MENTAL STATUS EXAMINATION: Patient appears her stated age in fair grooming and hygiene. The patient is a lert and oriented 4. Motor and speech behaviors are within normal limits. Mood is "MUCH BETTER" and affect is constricted. thought processes linear thought content is negative for suicidal or homicidal ideation. insight and judgment are improving. Denies current auditory or visual hallucinations. Denies paranoid ideations. Assessment: Major depressive disorder, moderate-severe Anxiety disorder unspecified Cocaine abuse Cannabis use disorder PLAN: Continue Zoloft to 100 mg daily for anxiety and mood. BuSpar 10 mg twice a day as necessary for her anxiety. melatonin 3 mg daily at bedtime for sleep
[2019-01-11] MEDS: MELATONIN 3 MG TABLET PO SCH (22:12)
[2019-01-12] MEDS: NICOTINE 21MG/24HR PATCH TRANSDERM SCH (09:11)
[2019-01-12] MEDS: SERTRALINE 100 MG TAB PO SCH (09:11)
[2019-01-12] MEDS: SULFAMETHOX-TMP 800-160MG 1 EACH TAB PO SCH ×2 (09:11→20:48)
[2019-01-12] MEDS: METOPROLOL SUCCINATE (ER) 25 MG TAB.ER.24H PO SCH (09:12)
--- NOTE | 2019-01-12 10:13 | P.PN ---
Progress Note - Text Progress Note Date: 01/12/19 IDENTIFICATION DATA: 33-year-old -[place] female admitted to [facility] with worsening anxiety and depression. INTERVAL HISTORY: Patient was seen today. She says her symptoms dont bother her much and attributes it being in the hospital. She howeever says she does not want to return back to work soon after her release from the hospital as she does not want to get back into stressful situation and would like to take some time off and asked who should she talk to about getting time off from work. She says she does not have any out patient care and says the treatment team here in the hospital will make sure that she will have an out patient follow up after her release from here. Patient was advised to talk to the treatment team on sunday about her future time off from work. She was also informed that her out patient treatment team can also help her with filling out the paper work. Patient stated she has three children ages 14, 9 and 1 who are currently living with their father. Patient is planning to get children back eventually when she is more stable enough to care for them. She says currently she does not want to face any stressful situations and is planning to go back to her home to spend some time alone until she is healed well enough to resume her routine. She reports being compliant with her medications. No side effects reported. She reports significant improvement of her depression and anxiety with medications. Reports good sleep and appetite. MENTAL STATUS EXAMINATION: Patient appears her stated age in fair grooming and hygiene. The patient is alert and oriented 4. Motor and speech behaviors are within normal limits. Mood is "good" and affect is constricted. thought processes linear thought content is negative for suicidal or homicidal ideation. insight and judgment are improving. Denies current auditory or visual hallucinations. Denies paranoid ideations. Assessment: Major depressive disorder, moderate-severe Anxiety disorder unspecified Cocaine abuse Cannabis use disorder PLAN: Continue Zoloft to 100 mg daily for anxiety and mood. BuSpar 10 mg twice a day as necessary for her anxiety. melatonin 3 mg daily at bedtime for sleep
[2019-01-12] MEDS: MELATONIN 3 MG TABLET PO SCH (23:43)
[2019-01-13 07:07] VITALS: TEMP 98.8
[2019-01-13] MEDS: NICOTINE 21MG/24HR PATCH TRANSDERM SCH (08:26)
[2019-01-13] MEDS: METOPROLOL SUCCINATE (ER) 25 MG TAB.ER.24H PO SCH (08:26)
[2019-01-13] MEDS: SULFAMETHOX-TMP 800-160MG 1 EACH TAB PO SCH (08:26)
[2019-01-13] MEDS: SERTRALINE 100 MG TAB PO SCH (08:26)
[2019-01-13 08:31] VITALS: BP 123/78; PULSE 101; RESP 18
--- NOTE | 2019-01-13 10:45 | P.DS ---
Providers Date of admission: 01/08/19 22:30 Expected date of discharge: 01/13/19 Attending physician: Dom Tovar MD Consults: 01/08/19 23:09 Consult Physician Routine Consulting Provider: Barron Noreiga Consult Reason/Comments: H & P and medical care Do you want consulting provider notified?: Already Contacted 01/09/19 18:49 Consult Physician Routine Consulting Provider: Hero Dunne Consult Reason/Comments: grape size tender mass at vaginal os Do you want consulting provider notified?: Yes Primary care physician: Hernandez Sarah - Discharge Diagnosis(es) (1) Major depressive disorder, recurrent, moderate Current Visit: Yes Status: Acute Priority: High (2) Anxiety Current Visit: Yes Status: Acute Priority: Medium (3) Cocaine abuse Current Visit: Yes Status: Acute Priority: Medium (4) Cannabis use disorder, mild, abuse Current Visit: Yes Status: Acute Priority: Low Hospital Course: Admission HPI: Patient is a 33-year-old -Cym[place] female who currently lives in a townhouse has 3 kids is unmarried and 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 Patient presented to the hospital after significant stressors and depression/anxiety with suicidal ideations with no plan. Patient was positive for cocaine and marijuana on her UDS prior to admission. Patient was agreeable to streaked to sba underwriter in the office was directable and calm however was tearful when describing her situation and stressors. Patient spoke about feeling ongoing depression and increase in her anxiety for the past several months. She states that her 1-year-old daughter has complete androgen insensitivity syndrome and described the challenges of getting her treatment and worrying about her future and all the unknowns that come with the rare disease. Patient explained that she had a complicated and thought that the baby was can have Down syndrome. She states that she is trying to follow-up with [facility] in [place] with instrumental music teacher urologist and facility security officer for her condition and is finding it stressful. She states that she is also having difficulties at work feeling more stressed as there is a new sanitation manager and high turnover of employees and she is feeling more burden on her. She states that it is difficult being away from her children as she recently had to take them to [place] to be with her father as she is being unable to care for them here and provide for them by going to work. She states that she feels she is missing out on a lot of their milestones and was tearful about this. Patient also spoke about having been diagnosed recently with HSV however has not shown any signs or symptoms in her genital areas. She states that she had a screening test done by her doctor as she suspected cheating from her boyfriend which turned out to be true and states that since then they have been broken up after a two-year relationship. Patient also spoke about having poor support in the area claiming that she does have family including mother father and relatives however feels that the year not helping her with her kids and day-to-day duties. She admits to some guilt, increase in anxiety and depression. She admits to poor sleep and suicidal ideations with no plan. Patient denies any current suicidal or homicidal intent or plan. At this time patient denies any auditory or visual hallucinations. Patient denies any flight of ideas racing thoughts and increased in goal directed behavior. Patient admits to using cocaine for her first time prior to coming to the hospital and also has been using marijuana edibles approximately 2-3 times per week to help her feel relaxed. She endorses smoking cigarettes talks only 3-5 cigarettes per day. She denies any other recreational drugs or alcohol use. Hospital course: Upon admission to the unit patient was initially depressed, anxious and isolative. Patient was however directable and agreeable to commence treatment. Patient got along well with other patients on the unit and followed unit p rotocol. Patient was compliant with the medications and denied any side effects throughout hospital course. Patient was started on Zoloft and titrated up to 100 mg daily for mood/anxiety. Patient was also restarted on BuSpar and increase to 10 mg twice a day as necessary for anxiety. Patient however only took this medication for the first day and then claims that she did not need it any longer and it will be discontinued. Patient also started on melatonin 3 mg daily at bedtime for insomnia. Patient spoke of her stressors and engaged in therapy both group and individual. Patient was also seen by medical team for history and physical exam. Patient was seen by HYGIENE COORDINATOR for consultation regarding pelvic pain. Patient was found to have a cyst which will require removal as an outpatient along with Bactrim for prophylaxis, appointment set for 1 day after discharge. Throughout the course of the hospitalization patient gradually improved with regards to mood, anxiety, sleep and became future oriented with improved insight and judgment. On the day of discharge patient denied any suicidal or homicidal ideations intent or plan denied any auditory or visual hallucinations. Patient endorsed wanting to live for her health and her children. The patient denied any access to guns or weapons. Patient denied any paranoia and did not endorse any delusions. Patient does have a significant history of substance abuse and was counseled on abstaining from all substances including alcohol and marijuana. Patient was also counseled on the medications and need for regular compliance and was encouraged to follow-up with their outpatient appointment for mental health and also for primary care. Prior to discharge a family meeting will be arranged by social and political studies professor to answer any questions and ensure safety upon discharge. Mental status exam: General Appearance: Patient appears to be stated age is alert, pleasant, and cooperative. Patient is in no acute distress and has fair hygiene and grooming Behavior: Patient is calmly seated without any agitated behavior. Speech: Patient's speech is fluent and nonpressured. Mood/Affect: Patient reports their mood is "better ", affect is congruent and euthymic. Suicidality/Homicidality: Patient denies having any suicidal or homicidal ideation intent or plan. Perceptions: Patient denies any auditory or visual hallucinations. Though content/process: There is no evidence of any delusional thought content and thought process is linear and goal-directed. Memory and concentration: AOX3, grossly intact for the purposes of this session. Can spell "WORLD" backwards correctly. Judgment and insight: fair, improved Impression: Major depressive disorder, moderate-severe Anxiety disorder unspecified Cocaine abuse Cannabis use disorder Plan: -Continue with discharge today as patient has improved and stabilized psychiatrically and is not currently an imminent threat to herself and/or others. -Continue medications: Zoloft 100 mg daily for anxiety and mood. BuSpar was discontinued due to ineffectiveness. Continue with melatonin 3 mg nightly for sleep. -Patient was counseled on the need for medication compliance and appropriate follow-up at mental health and also primary care for medical issues. Patient verbalized understanding and agreed. -Social work to arrange for and conduct family meeting to ensure safety upon discharge and answer any questions/concerns. Social work also to arrange for patients follow up appointments with her primary care provider, psychiatric outpatient follow-up. Patient is to follow up with HYGIENE COORDINATOR in the clinic tomorrow for cyst removal as an outpatient. Patient is to continue on Bactrim for at least 3 days and will be reassessed to see if she needs to be kept on the antibiotic for longer. -Patient counseled on abstaining from recreational drugs and marijuana and alcohol. Was informed/educated on the adverse effects on their physical and mental health. Patient stated that she only recreationally/once used cocaine claims that she will not use it again and also verbally understood and agreed to cut back on cannabis use -Patient was instructed to return to the hospital or seek immediate medical care if their psychiatric or medical systems do worsen or reoccur. Allergies Allergy/AdvReac Type Severity Reaction Status Date / Time aspirin Allergy Anaphylaxis Verified 01/08/19 17:25 cephalexin [From Keflex] Allergy Anaphylaxis Verified 01/08/19 17:25 Laboratory Results WBC 6.5 k/uL (3.8-10.6) 01/09/19 08:02 RBC 4.34 m/uL (3.80-5.40) 01/09/19 08:02 Hgb 12.6 gm/dL (11.4-16.0) 01/09/19 08:02 Hct 36.5 % (34.0-46.0) 01/09/19 08:02 MCV 84.1 fL (80.0-100.0) 01/09/19 08:02 MCH 29.0 pg (25.0-35.0) 01/09/19 08:02 MCHC 34.4 g/dL (31.0-37.0) 01/09/19 08:02 RDW 14.2 % (11.5-15.5) 01/09/19 08:02 Plt Count 239 k/uL (150-450) 01/09/19 08:02 Neutrophils % 51 % 01/09/19 08:02 Lymphocytes % 39 % 01/09/19 08:02 Monocytes % 4 % 01/09/19 08:02 Eosinophils % 3 % 01/09/19 08:02 Basophils % 1 % 01/09/19 08:02 Neutrophils # 3.3 k/uL (1.3-7.7) 01/09/19 08:02 Lymphocytes # 2.6 k/uL (1.0-4.8) 01/09/19 08:02 Monocytes # 0.3 k/uL (0-1.0) 01/09/19 08:02 Eosinophils # 0.2 k/uL (0-0.7) 01/09/19 08:02 Basophils # 0.1 k/uL (0-0.2) 01/09/19 08:02 Sodium 141 mmol/L (137-145) 01/09/19 08:02 Potassium 3.7 mmol/L (3.5-5.1) 01/09/19 08:02 Chloride 110 mmol/L (98-107) H 01/09/19 08:02 Carbon Dioxide 23 mmol/L (22-30) 01/09/19 08:02 Anion Gap 8 mmol/L 01/09/19 08:02 BUN 8 mg/dL (7-17) 01/09/19 08:02 Creatinine 0.92 mg/dL (0.52-1.04) 01/09/19 08:02 Est GFR (CKD-EPI)AfAm >90 (>60 ml/min/1.73 sqM) 01/09/19 08:02 Est GFR (CKD-EPI)NonAf 84 (>60 ml/min/1.73 sqM) 01/09/19 08:02 Glucose 93 mg/dL (74-99) 01/09/19 08:02 Calcium 9.0 mg/dL (8.4-10.2) 01/09/19 08:02 Total Bilirubin 1.1 mg/dL (0.2-1.3) 01/09/19 08:02 Conjugated Bilirubin 0.0 mg/dL (0.0-0.3) 01/09/19 08:02 Unconjugated Bilirubin 1.0 mg/dL (0.0-1.1) 01/09/19 08:02 Delta Bilirubin 0.1 mg/dL (0.0-0.2) 01/09/19 08:02 AST 17 U/L (14-36) 01/09/19 08:02 ALT 17 U/L (9-52) 01/09/19 08:02 Alkaline Phosphatase 40 U/L (38-126) 01/09/19 08:02 Total Protein 6.5 g/dL (6.3-8.2) 01/09/19 08:02 Albumin 3.7 g/dL (3.5-5.0) 01/09/19 08:02 TSH 1.900 mIU/L (0.465-4.680) 01/09/19 08:02 Urine Color Light Yellow 01/08/19 17:20 Urine Appearance Clear (Clear) 01/08/19 17:20 Urine pH 6.0 (5.0-8.0) 01/08/19 17:20 Ur Specific [place] 1.003 (1.001-1.035) 01/08/19 17:20 Urine Protein Negative (Negative) 01/08/19 17:20 Urine Glucose (UA) Negative (Negative) 01/08/19 17:20 Urine Ketones Negative (Negative) 01/08/19 17:20 Urine Blood Negative (Negative) 01/08/19 17:20 Urine Nitrite Negative (Negative) 01/08/19 17:20 Urine Bilirubin Negative (Negative) 01/08/19 17:20 Urine Urobilinogen <2.0 mg/dL (<2.0) 01/08/19 17:20 Ur Leukocyte Esterase Negative (Negative) 01/08/19 17:20 Urine HCG, Qual Not Detected (Not Detectd) 01/08/19 17:20 Urine Opiates Screen Not Detected (NotDetected) 01/08/19 17:20 Ur Oxycodone Screen Not Detected (NotDetected) 01/08/19 17:20 Urine Methadone Screen Not Detected (NotDetected) 01/08/19 17:20 Ur Propoxyphene Screen Not Detected (NotDetected) 01/08/19 17:20 Ur Barbiturates Screen Not Detected (NotDetected) 01/08/19 17:20 U Tricyclic Antidepress Not Detected (NotDetected) 01/08/19 17:20 Ur Phencyclidine Scrn Not Detected (NotDetected) 01/08/19 17:20 Ur Amphetamines Screen Not Detected (NotDetected) 01/08/19 17:20 U Methamphetamines Scrn Not Detected (NotDetected) 01/08/19 17:20 U Benzodiazepines Scrn Not Detected (NotDetected) 01/08/19 17:20 Urine Cocaine Screen Detected (NotDetected) H 01/08/19 17:20 U Marijuana (THC) Screen Detected (NotDetected) H 01/08/19 17:20 Vital Signs Temp 98.8 F 01/13/19 06:51 Pulse 101 H 01/13/19 08:30 Resp 18 01/13/19 08:30 BP 123/78 01/13/19 08:30 Pulse Ox 97 01/08/19 22:15 Intake & Output 01/12/19 01/13/19 01/13/19 18:59 06:59 18:59 Weight 64 kg Patient Condition at Discharge: Stable Plan - Discharge Summary New Discharge Prescriptions: New Sulfamethox-Tmp 800-160Mg [Bactrim DS 800-160 mg] 1 each PO BID 3 Days tab Nicotine 21Mg/24Hr Patch [Habitrol] 1 patch TRANSDERM DAILY 30 Days patch Melatonin 3 mg PO HS tablet Sertraline [Zoloft] 100 mg PO DAILY 30 Days tab Continue Metoprolol Succinate (ER) [Toprol XL] 25 mg PO DAILY Discontinued busPIRone HCl [Buspar] 5 mg PO BID Discharge Medication List Metoprolol Succinate (ER) [Toprol XL] 25 mg PO DAILY 11/11/18 [History] Melatonin 3 mg PO HS tablet 01/13/19 [Rx] Nicotine 21Mg/24Hr Patch [Habitrol] 1 patch TRANSDERM DAILY 30 Days patch 01/13/19 [Rx] Sertraline [Zoloft] 100 mg PO DAILY 30 Days tab 01/13/19 [Rx] Sulfamethox-Tmp 800-160Mg [Bactrim DS 800-160 mg] 1 each PO BID 3 Days tab 01/13/19 [Rx] Follow up Appointment(s)/Referral(s): Hernandez Sarah DO [Primary Care Provider] - 1-2 days Activity/Diet/Wound Care/Special Instructions: Activity and diet as tolerated. No guns or weapons in the home. Refrain from alcohol and street drugs not prescribed by your physician. If in need of medication refills, please go to your primary care physician, or to your out patient psychiatric provider. Please take all medications as prescribed, and attend all after care appointments as scheduled. If in crisis, please call , or go the nearest ER for an evaluation. Discharge Disposition: HOME SELF-CARE
== END 2019-01-13 13:37 | disposition home or self-care (01) | DRG 885 ==
LOC: EC 16:36 → 3MHU 22:30
PROVIDERS: ADMIT Psychiatry & Neurology Psychiatry; ATTEND Psychiatry & Neurology Psychiatry
DX: F33.1 Major depressive disorder, recurrent, moderate (principal); R45.851 Suicidal ideations; F41.9 Anxiety disorder, unspecified; F14.10 Cocaine abuse, uncomplicated; G47.00 Insomnia, unspecified; F12.10 Cannabis abuse, uncomplicated; F17.210 Nicotine dependence, cigarettes, uncomplicated; N75.0 Cyst of Bartholin's gland; Z71.6 Tobacco abuse counseling; B00.9 Herpesviral infection, unspecified; Z79.899 Other long term (current) drug therapy; Z88.6 Allergy status to analgesic agent; Z88.1 Allergy status to other antibiotic agents; I34.0 Nonrheumatic mitral (valve) insufficiency; Z83.49 Family history of other endocrine, nutritional and metabolic diseases; Z82.5 Family history of asthma and other chronic lower respiratory diseases
CPT/HCPCS: 80053; 80306; 81003; 81025; 82075; 82248; 84443; 85025; 99285

== ENCOUNTER → 2019-02-13 | Outpatient (CLI) | payer BC ==
[2019-02-13 16:53] LABS: Basophils % (A) 0 %; Eosinophils # (A) 0.2 k/uL (0-0.7); Eosinophils % (A) 2 %; HCT 33.5 % (34.0-46.0); HGB 11.6 gm/dL (11.4-16.0); Lymphocytes # (A) 3.1 k/uL (1.0-4.8); Lymphocytes % (A) 33 %; MCH 29.6 pg (25.0-35.0); MCHC 34.7 g/dL (31.0-37.0); MCV 85.2 fL (80.0-100.0); Mean Platelet Volume 6.7; Monocytes # (A) 0.2 k/uL (0-1.0); Monocytes % (A) 2 %; Neutrophils # (A) 5.8 k/uL (1.3-7.7); Neutrophils % (A) 61 %; Platelet Count 269 k/uL (150-450); RBC 3.94 m/uL (3.80-5.40); RDW 14.5 % (11.5-15.5); WBC 9.4 k/uL (3.8-10.6)
== END | disposition home or self-care (01) ==
LOC: LABPAT 15:48
PROVIDERS: ATTEND Obstetrics & Gynecology
DX: Z01.812 Encounter for preprocedural laboratory examination (principal)
CPT/HCPCS: 85025

== ENCOUNTER 2019-02-20 09:24 | Day surgery (SDC) | payer BC ==
[2019-02-18 16:06] VITALS: BMI 23.0
--- NOTE | 2019-02-20 08:59 | P.HPOB ---
History of Present Illness H&P Date: 02/20/19 Chief Complaint: Dysfunctional uterine bleeding Patient is a 33-year-old female who has dysfunctional uterine bleeding. She notes that she has irregular menses over the last several months in December she actually had bleeding where she had very very heavy bleeding for michael roximately 10 days the bleeding was so heavy that she was unable to function during that episode. There is some concern on ultrasound over a fibroid uterus. It was measured to be approximately 5 cm difficult to say if that fibroid could be having any issues or cause for her bleeding, however there was a 2.9 cm thickened endometrium which may represent a fibroid or polyp she is scheduled for D&C with hysteroscopy possible mild sure for same. Risks/benefits/alternatives to this procedure were discussed with the patient in detail and all questions were answered for her prior to proceeding to the operating room. Past Medical History Past Medical History: No Reported History Additional Past Medical History / Comment(s): heavy frequent menses, mitral valve regurgitation, HX of sinus arrhythmia tachycardia History of Any Multi-Drug Resistant Organisms: None Reported Past Surgical History: Breast Surgery Additional Past Surgical History / Comment(s): turmor removed from right breast in 2005, I&D of boil on left leg, no MRSA Past Anesthesia/Blood Transfusion Reactions: Previous Problems w/ Anesthesia Additional Past Anesthesia/Blood Transfusion Reaction / Comment(s): states "takes longer to wake up" Smoking Status: Former smoker - Past Family History Mother Family Medical History: Thyroid Disorder Father Additional Family Medical History / Comment(s): pt states none Son(s) Family Medical History: Asthma Medications and Allergies Home Medications Medication Instructions Recorded Confirmed Type Nicotine 21Mg/24Hr Patch [Habitrol] 1 patch TRANSDERM DAILY 30 Days 01/13/19 02/18/19 Rx patch Sertraline [Zoloft] 100 mg PO DAILY 30 Days tab 01/13/19 02/18/19 Rx Ibuprofen [Motrin] 600 mg PO Q8HR PRN 02/18/19 02/18/19 History Allergies Allergy/AdvReac Type Severity Reaction Status Date / Time aspirin Allergy Anaphylaxis Verified 02/18/19 16:02 cephalexin [From Keflex] Allergy Anaphylaxis Verified 02/18/19 16:02 Exam Osteopathic Statement: *. No significant issues noted on an osteopathic structural exam other than those noted in the History and Physical/Consult. - OBG Physical Exam Breast: both: normal (no masses) Abdomen: bowel sounds normal, no diffuse tenderness, no bruit present, no guarding noted, no hepatomegaly, no splenomegaly, no mass Vulva: both: normal Vagina: normal moisture, no discharge Cervix: no lesion, no discharge Uterus: normal size, normal contour Adnexa: both: normal Anus/Rectum: normal perianal skin, no rectal mass, no hemorrhoids, heme negative
[~2019-02-20 09:24] MED LIST: HYDROmorphone 0.5 MG/0.5 ML SYRINGE IVP PRN; LACTATED RINGERS 1,000 ML IV SCH; ONDANSETRON 4 MG/2 ML VIAL IVP PRN; Pre Op ABX Message 1 EACH MISC MISCELLANE ONE
[2019-02-20 09:41] VITALS: RESP 16
[2019-02-20] MEDS ORDERED: LIDOCAINE 1% 20 ML VIAL (10MG/ML) FOR IV START INTRADERMA ONE (10:09)
[2019-02-20] MEDS ORDERED: DEXAMETHASONE SOD PHOSPHATE 10 MG/ML 1 ML VIAL IV ONE (10:10)
[2019-02-20] MEDS ORDERED: MIDAZOLAM 2 MG/2 ML VIAL ONE (10:44)
[2019-02-20] MEDS ORDERED: LIDOCAINE 1% INJ 10MG/ML (20 ML MDV) ONE (10:44)
[2019-02-20] MEDS ORDERED: fentaNYL (PF) 50 MCG/ML 2 ML AMP ONE (10:44)
[2019-02-20] MEDS ORDERED: PROPOFOL 10 MG/ML 20 ML VIAL IV ONE (10:44)
[2019-02-20] MEDS ORDERED: KETOROLAC 30 MG/ML 1 ML VIAL ONE (10:44)
[2019-02-20 11:46] VITALS: TEMP 97.6
[2019-02-20] MEDS ORDERED: ACETAMINOPHEN IV (For NPO) 1,000 MG/100 ML VIAL IVPB ONE (12:38)
[2019-02-20] MEDS ORDERED: SODIUM CHLORIDE 0.9% 1,000 ML IV ONE (12:44)
[2019-02-20] MEDS ORDERED: HYDROcodone/APAP 5-325MG 1 EACH TAB PO ONE (13:30)
[2019-02-20 13:33] VITALS: BP 116/65; PULSE 63
--- NOTE | 2019-02-20 14:20 | PCN ---
PROCEDURE NOTE PREOPERATIVE DIAGNOSIS: Dysfunctional bleeding and vaginal cyst. POSTOPERATIVE DIAGNOSIS: Dysfunctional bleeding and vaginal cyst. PROCEDURE: D and C with hysteroscopy and excisional biopsy of vaginal cyst. ANESTHESIA: General. ESTIMATED BLOOD LOSS: 10 mL. SURGEON: Dr. Dunne. COMPLICATIONS: None. CONDITION ON DISCHARGE: Stable. PROCEDURE DESCRIPTION: Patient was taken to the operating suite where a general anesthetic was found to be adequate. She was prepped and draped in the normal sterile fashion and placed in a dorsal lithotomy position. Initially, a weighted speculum was inserted into the vagina and the anterior lip of the cervix was identified and grasped with single-tooth tenaculum. Cervix was then dilated and camera was inserted. No specific pathology was noted. Therefore, camera was removed and sharp curettings of the endometrium were obtained. All tissue was collected and placed on Telfa. It was then sent to pathology for evaluation. Once this was completed, instruments were removed and attention was turned to the vaginal cyst. At 6 o'clock on the posterior fourchette, the cyst was identified and isolated. It was then sharply incised with a knife and then blunt dissection of the cyst wall was performed to free it up from the vaginal wall. Then it was excised and sent to Pathology for evaluation; 3-0 Vicryl was then used to reapproximate the skin tissue. At the conclusion of the procedure, all instruments removed. Sponge, lap, and needle counts were all correct x2. The patient was then taken to the recovery room in stable and satisfactory condition. MMODL / IJN: [id number] /
== END 2019-02-20 14:00 | disposition home or self-care (01) ==
LOC: OR 09:24
PROVIDERS: ATTEND Obstetrics & Gynecology
DX: N85.9 Noninflammatory disorder of uterus, unspecified (principal); N89.8 Other specified noninflammatory disorders of vagina; N93.8 Other specified abnormal uterine and vaginal bleeding; N92.0 Excessive and frequent menstruation with regular cycle; F39 Unspecified mood [affective] disorder; I34.0 Nonrheumatic mitral (valve) insufficiency; Z86.79 Personal history of other diseases of the circulatory system; Z98.890 Other specified postprocedural states; Z87.2 Personal history of diseases of the skin and subcutaneous tissue; Z91.89 Other specified personal risk factors, not elsewhere classified; Z87.891 Personal history of nicotine dependence; Z79.899 Other long term (current) drug therapy; Z79.1 Long term (current) use of non-steroidal anti-inflammatories (NSAID); Z88.1 Allergy status to other antibiotic agents; Z88.6 Allergy status to analgesic agent; Z83.49 Family history of other endocrine, nutritional and metabolic diseases; Z82.5 Family history of asthma and other chronic lower respiratory diseases
CPT/HCPCS: 81025; 88304; 88305; 58558; 57135; J2250; J1100; J2405; J2001; J3010; J1885; J0131; J2704

== ENCOUNTER 2019-10-06 11:27 | Observation (INO) | payer BC, OTHER ==
[2019-10-06] MEDS ORDERED: LORazepam 2 MG/ML INJ IV STA (12:14)
[2019-10-06] MEDS ORDERED: SODIUM CHLORIDE 0.9% 1,000 ML IV STA (12:14)
[2019-10-06 13:04] LABS: Anisocytosis Slight; Basophils % (A) 0 %; Eosinophils % (A) 0 %; HCT 32.3 % (34.0-46.0); Lymphocytes # (A) 0.6 k/uL (1.0-4.8); Lymphocytes % (A) 6 %; MCH 26.6 pg (25.0-35.0); MCHC 34.2 g/dL (31.0-37.0); MCV 77.7 fL (80.0-100.0); Mean Platelet Volume 8.5; Microcytosis Slight; Monocytes # (A) 0.3 k/uL (0-1.0); Monocytes % (A) 3 %; Neutrophils % (A) 91 %; Platelet Count 225 k/uL (150-450); RBC 4.15 m/uL (3.80-5.40); RDW 18.1 % (11.5-15.5)
--- NOTE | 2019-10-06 13:12 | ED ---
Chest Pain HPI - General Chief Complaint: Chest Pain Stated Complaint: Vaginal Bleeding,Anxiety,Dizziness,Chest Pain Time Seen by Provider: 10/06/19 12:05 Source: EMS Mode of arrival: EMS Limitations: no limitations - History of Present Illness Initial Comments: Patient is a 34-year-old female with history of anxiety presenting to the emergency department for multiple chief complaints. Patient brought to the ED via EMS. Patient is reporting sudden onset of midsternal and epigastric chest pain that is sharp in nature. She also reports shortness of breath that is pleuritic in nature. She also reports nausea with multiple episodes of nonbilious, nonbloody vomiting. Does report one episode of nonbloody diarrhea. Reports yesterday she had audibles at 11 AM and had no problems since. Also reports lightheadedness and dizziness. Denies any hemoptysis. Does report some left lower extremity bruising over the last few days. She also reports her left lower extremity edema. Denies previous history of PE or DVT. Not currently on chemo. Not . No history of gallstones. She also reports currently she is on her menstrual periods and is bleeding more than usual. - Related Data Home Medications Medication Instructions Recorded Confirmed Ibuprofen [Motrin] 600 mg PO Q8HR PRN 02/18/19 02/20/19 Previous Rx's Medication Instructions Recorded Nicotine 21Mg/24Hr Patch [Habitrol] 1 patch TRANSDERM DAILY 30 Days 01/13/19 patch Sertraline [Zoloft] 100 mg PO DAILY 30 Days tab 01/13/19 Allergies Allergy/AdvReac Type Severity Reaction Status Date / Time aspirin Allergy Anaphylaxis Verified 10/06/19 11:39 cephalexin [From Keflex] Allergy Anaphylaxis Verified 10/06/19 11:39 Review of Systems ROS Statement: Those systems with pertinent positive or pertinent negative responses have been documented in the HPI. ROS Other: All systems not noted in ROS Statement are negative. EKG Findings - EKG Comments: EKG Findings:: Sinus arrhythmia, no ST or T-wave changes. VR 52, MT 150, QRS 70, QTC 435. Past Medical History Past Medical History: No Reported History Additional Past Medical History / Comment(s): heavy frequent menses, mitral valve regurgitation, HX of sinus arrhythmia tachycardia History of Any Multi-Drug Resistant Organisms: None Reported Past Surgical History: Breast Surgery Additional Past Surgical History / Comment(s): turmor removed from right breast in 2006, I&D of boil on left leg, no MRSA Past Anesthesia/Blood Transfusion Reactions: Previous Problems w/ Anesthesia Additional Past Anesthesia/Blood Transfusion Reaction / Comment(s): states "takes longer to wake up" Past Psychological History: Anxiety, Depression Smoking Status: Current every day smoker Past Alcohol Use History: None Reported Past Drug Use History: Marijuana - Past Family History Mother Family Medical History: Thyroid Disorder Father Additional Family Medical History / Comment(s): pt states none Son(s) Family Medical History: Asthma General Exam Limitations: no limitations General appearance: alert, anxious, in distress Head exam: Present: atraumatic, normocephalic, normal inspection Eye exam: Present: normal appearance, PERRL, EOMI Pupils: Present: normal accommodation ENT exam: Present: normal exam, normal oropharynx, mucous membranes moist Neck exam: Present: normal inspection, full ROM. Absent: tenderness Respiratory exam: Present: normal lung sounds bilaterally. Absent: respiratory distress, wheezes, rales Cardiovascular Exam: Present: regular rate, normal rhythm, normal heart sounds GI/Abdominal exam: Present: soft, tenderness (Right upper quadrant. Positive Smith sign.). Absent: distended, guarding Extremities exam: Present: normal inspection, full ROM, normal capillary refill, other (+2 ulnar and radial pulses). Absent: tenderness Back exam: Present: normal inspection, full ROM Neurological exam: Present: alert, oriented X3 Psychiatric exam: Present: normal affect, anxious Skin exam: Present: warm, dry, intact, normal color Course Vital Signs 10/06/19 11:34 Temperature 97.4 F L Pulse Rate 67 Respiratory 24 Rate Blood Pressure 140/108 O2 Sat by Pulse 100 Oximetry Chest Pain [facility] Patient is a 34-year-old female with history of anxiety presenting to the emergency department with multiple chief complaints. Patient initially is very anxious and distress with complaints of of chest pain , epigastric pain and shortness of breath. Initially unable to obtain a thorough physical exam or history. Troponins and d-dimer were immediately obtained. Elevated d-dimer. CT of chest and use is negative for a PE. Patient was given anxiolytics which helped calm the patient down and I was able to get a better physical examination and history. I evaluated the patient and she appeared to have right upper quadrant tenderness with a positive Smith sign. Upper quadrant ultrasound was ordered showing acute acalculous cholecystitis. Laboratory results do indicate such diagnoses considering her elevated bilirubin and elevated liver enzymes. Patient offered analgesia but she declined. Patient started on unasyn. Case discussed with Admitting physician is Dr torres Disposition Clinical Impression: Abdominal pain, Acute acalculous cholecystitis Disposition: ADMITTED IP TO THIS HOSP Condition: Good Additional Instructions: Patient will be admitted Is patient prescribed a controlled substance at d/c from ED?: No Referrals: Hernandez Sarah DO [Primary Care Provider] - 1-2 days Time of Disposition: 16:11
[2019-10-06 13:16] LABS: ALT 285 U/L (4-34); AST 547 U/L (14-36); African American GFR (CKD) >90 (>60 ml/min/1.73 sqM); Alkaline Phosphatase 106 U/L (38-126); Anion Gap 6 mmol/L; Blood Urea Nitrogen 9 mg/dL (7-17); Calcium 8.8 mg/dL (8.4-10.2); Carbon Dioxide 20 mmol/L (22-30); Chloride 111 mmol/L (98-107); Glucose 140 mg/dL (74-99); Non-African American GFR(CKD) >90 (>60 ml/min/1.73 sqM); Potassium 3.9 mmol/L (3.5-5.1); Sodium 137 mmol/L (137-145); Total Bilirubin 2.1 mg/dL (0.2-1.3)
--- NOTE | 2019-10-06 13:19 | XR ---
EXAMINATION TYPE: XR chest 2V DATE OF EXAM: 10/06/2019 COMPARISON: 11/11/2018. TECHNIQUE: PA and lateral views submitted. HISTORY: Chest pain FINDINGS: The lungs are clear and there is no pneumothorax, pleural effusion, or focal pneumonia. Mild hyperi nflation correlate for history of asthma. IMPRESSION: 1. No acute process.
[2019-10-06 14:04] LABS: Mucus,Urine Rare /hpf; RBC,Urine 106 /hpf (0-5); Squamous Epithelial Cell,Urine <1 /hpf (0-4); WBC,Urine 1 /hpf (0-5)
[2019-10-06 14:15] LABS: Color,Urine Yellow
[2019-10-06 14:16] LABS: Appearance,Urine Clear (Clear); Bilirubin,Urine Negative (Negative); Blood,Urine Large (Negative); Glucose,Urine (UA) 1+ (Negative); Ketones,Urine Negative (Negative); Leukocyte Esterase,Urine Negative (Negative); Nitrite,Urine Negative (Negative); Protein,Urine Negative (Negative)
--- NOTE | 2019-10-06 15:05 | CT ---
CT CHEST FOR PULMONARY EMBOLISM. EXAMINATION TYPE: CT chest angio for PE DATE OF EXAM: 10/06/2019 INDICATION: Elevated d-dimer. Shortness of breath. CT DLP: 224.4 mGycm, Automated exposure control for dose reduction was used. CONTRAST: Patient injected with 100 mL of Isovue 370. COMPARISON: None TECHNIQUE: CT of the chest is performed on a spiral scan at 2 mm thick sections. Study is performed with intravenous contrast timed for evaluation for pulmonary embolism. This will limit additional po rtions of the evaluation. 3-D MIP images reconstructed by the technologist are reviewed on the compu ter in the coronal and sagittal planes. FINDINGS: No persistent filling defects are evident to suggest an acute pulmonary embolism. No mediastinal or hilar adenopathy enlarged by CT criteria is evident. The ascending aorta diameter at the level of the main pulmonary artery is 2.9 cm. The main pulmonary artery diameter at the bifur cation is 2.4 cm. Lung windows are clear. Limited CT section through the upper abdomen are unremarkable. IMPRESSIONS: 1. No acute pulmonary embolism.
--- NOTE | 2019-10-06 15:53 | US ---
EXAMINATION TYPE: US abdomen limited DATE OF EXAM: 10/06/2019 COMPARISON: NONE CLINICAL HISTORY: Right upper quadrant tenderness, positive Smith. Difficult exam due to patient marvin n. Unable to lay patient down, patient unable to turn EXAM MEASUREMENTS: Liver Length: 15.9 cm Gallbladder Wall: 1.3 cm CBD: 0.3 cm Right Kidney: 11.9 x 4.6 x 5.3 cm Pancreas: Obscured by bowel gas, visualized portions wnl Liver: wnl Gallbladder: Wall thickened with pericholecystic fluid. No stones visualized Evidence for sonographic Smith's sign: Yes CBD: wnl Right Kidney: No hydronephrosis or masses seen IMPRESSION: 1. There is marked gallbladder wall thickening with suggestion of pericholecystic fluid but no gallst ones. Correlate for acalculous cholecystitis.
[2019-10-06] MEDS ORDERED: LORazepam 2 MG/ML INJ IV PRN (16:06)
[2019-10-06] MEDS ORDERED: NALOXONE 0.4 MG/ML 1 ML VIAL IV PRN (16:06)
[2019-10-06] MEDS ORDERED: MORPHINE SULFATE 4 MG/ML SYRINGE IV PRN (16:06)
[2019-10-06] MEDS ORDERED: Acetaminophen-Codeine 300-30mg TAB PO PRN (16:06)
[2019-10-06] MEDS ORDERED: AMPICILLIN-SULBACTAM 3 GM in SODIUM CHLORIDE 0.9% 100 ML IVPB STA (16:09)
[2019-10-06] MEDS: SODIUM CHLORIDE 0.9% 1,000 ML IV SCH (16:52)
[2019-10-06] MEDS: HYDROmorphone 0.5 MG/0.5 ML SYRINGE IVP PRN ×2 (17:25→20:50)
[2019-10-06] MEDS: ONDANSETRON 4 MG/2 ML VIAL IVP PRN (17:27)
[2019-10-07] MEDS: SODIUM CHLORIDE 0.9% 1,000 ML IV SCH ×2 (06:20→17:39)
[2019-10-07] MEDS: HYDROmorphone 0.5 MG/0.5 ML SYRINGE IVP PRN ×3 (08:02→21:41)
--- NOTE | 2019-10-07 11:08 | P.GSHP ---
History of Present Illness H&P Date: 10/07/19 Chief Complaint: Right upper quadrant pain This a 34-year-old female was admitted through the emergency room with complaints of right quadrant pain. Patient was worked up found have evidence of cholecystitis and cholelithiasis. Past Medical History Past Medical History: No Reported History Additional Past Medical History / Comment(s): heavy frequent menses, mitral valve regurgitation, HX of sinus arrhythmia tachycardia History of Any Multi-Drug Resistant Organisms: None Reported Past Surgical History: Breast Surgery Additional Past Surgical History / Comment(s): turmor removed from right breast in 2005, I&D of boil on left leg, no MRSA Past Anesthesia/Blood Transfusion Reactions: Previous Problems w/ Anesthesia Additional Past Anesthesia/Blood Transfusion Reaction / Comment(s): states "takes longer to wake up" Past Psychological History: Anxiety, Depression Smoking Status: Current every day smoker Past Alcohol Use History: None Reported Additional Past Alcohol Use History / Comment(s): quit smoking 11/2018 Past Drug Use History: Marijuana Additional Drug Use History / Comment(s): marijuana edibles daily - Past Family History Mother Family Medical History: Thyroid Disorder Father Additional Family Medical History / Comment(s): pt states none Son(s) Family Medical History: Asthma Medications and Allergies Home Medications Medication Instructions Recorded Confirmed Type Ferrous Sulfate [Iron] 325 mg PO TID PRN 10/06/19 10/06/19 History Unknown Strength (Charcoal) 1 tab PO DAILY 10/06/19 10/06/19 History Allergies Allergy/AdvReac Type Severity Reaction Status Date / Time aspirin Allergy Anaphylaxis Verified 10/06/19 17:05 cephalexin [From Keflex] Allergy Anaphylaxis Verified 10/06/19 17:05 Surgical - Exam Vital Signs Temp Pulse Resp BP Pulse Ox 97.4 F L 67 24 140/108 100 10/06/19 11:34 10/06/19 11:34 10/06/19 11:34 10/06/19 11:34 10/06/19 11:34 - General well developed, well nourished - Eyes PERRL - ENT normal pinna - Neck no masses - Respiratory normal expansion - Cardiovascular Rhythm: regular - Abdomen Mild right upper quadrant tenderness, mild right quadrant pain Abdomen: soft Results - Labs 10/06/19 12:41 10/06/19 12:41 Abnormal Lab Results - Last 24 Hours (Table) 10/06/19 10/06/19 10/06/19 Range/Units 12:41 12:41 12:41 WBC 11.0 H (3.8-10.6) k/uL Hgb 11.0 L (11.4-16.0) gm/dL Hct 32.3 L (34.0-46.0) % MCV 77.7 L (80.0-100.0) fL RDW 18.1 H (11.5-15.5) % Neutrophils # 10.0 H (1.3-7.7) k/uL Lymphocytes # 0.6 L (1.0-4.8) k/uL D-Dimer 2.54 H (<0.60) mg/L FEU Chloride 111 H (98-107) mmol/L Carbon Dioxide 20 L (22-30) mmol/L Glucose 140 H (74-99) mg/dL Total Bilirubin 2.1 H (0.2-1.3) mg/dL AST 547 H (14-36) U/L ALT 285 H (4-34) U/L Urine Glucose (UA) (Negative) Urine RBC (0-5) /hpf Urine Mucus (None) /hpf 10/06/19 Range/Units 13:21 WBC (3.8-10.6) k/uL Hgb (11.4-16.0) gm/dL Hct (34.0-46.0) % MCV (80.0-100.0) fL RDW (11.5-15.5) % Neutrophils # (1.3-7.7) k/uL Lymphocytes # (1.0-4.8) k/uL D-Dimer (<0.60) mg/L FEU Chloride (98-107) mmol/L Carbon Dioxide (22-30) mmol/L Glucose (74-99) mg/dL Total Bilirubin (0.2-1.3) mg/dL AST (14-36) U/L ALT (4-34) U/L Urine Glucose (UA) 1+ H (Negative) Urine RBC 106 H (0-5) /hpf Urine Mucus Rare H (None) /hpf Diabetes panel 10/06/19 Range/Units 12:41 Sodium 137 (137-145) mmol/L Potassium 3.9 (3.5-5.1) mmol/L Chloride 111 H (98-107) mmol/L Carbon Dioxide 20 L (22-30) mmol/L BUN 9 (7-17) mg/dL Creatinine 0.64 (0.52-1.04) mg/dL Glucose 140 H (74-99) mg/dL Calcium 8.8 (8.4-10.2) mg/dL AST 547 H (14-36) U/L ALT 285 H (4-34) U/L Alkaline Phosphatase 106 (38-126) U/L Total Protein 7.0 (6.3-8.2) g/dL Albumin 4.0 (3.5-5.0) g/dL Calcium panel 10/06/19 Range/Units 12:41 Calcium 8.8 (8.4-10.2) mg/dL Albumin 4.0 (3.5-5.0) g/dL Pituitary panel 10/06/19 Range/Units 12:41 Sodium 137 (137-145) mmol/L Potassium 3.9 (3.5-5.1) mmol/L Chloride 111 H (98-107) mmol/L Carbon Dioxide 20 L (22-30) mmol/L BUN 9 (7-17) mg/dL Creatinine 0.64 (0.52-1.04) mg/dL Glucose 140 H (74-99) mg/dL Calcium 8.8 (8.4-10.2) mg/dL Adrenal panel 10/06/19 Range/Units 12:41 Sodium 137 (137-145) mmol/L Potassium 3.9 (3.5-5.1) mmol/L Chloride 111 H (98-107) mmol/L Carbon Dioxide 20 L (22-30) mmol/L BUN 9 (7-17) mg/dL Creatinine 0.64 (0.52-1.04) mg/dL Glucose 140 H (74-99) mg/dL Calcium 8.8 (8.4-10.2) mg/dL Total Bilirubin 2.1 H (0.2-1.3) mg/dL AST 547 H (14-36) U/L ALT 285 H (4-34) U/L Alkaline Phosphatase 106 (38-126) U/L Total Protein 7.0 (6.3-8.2) g/dL Albumin 4.0 (3.5-5.0) g/dL Assessment and Plan Assessment: Cholelithiasis Cholecystitis We'll perform laparoscopic cholecystectomy.
[2019-10-07] MEDS ORDERED: IV FLUID CONTINUATION 1,000 ML IV ONE (11:30)
[2019-10-07] MEDS ORDERED: SUCCINYLCHOLINE CHLORIDE 100 MG/5 ML SYR IV ONE (12:36)
[2019-10-07] MEDS ORDERED: ONDANSETRON 4 MG/2 ML VIAL ONE (12:36)
[2019-10-07] MEDS ORDERED: KETOROLAC 30 MG/ML 1 ML VIAL ONE (12:36)
[2019-10-07] MEDS ORDERED: MIDAZOLAM 2 MG/2 ML VIAL ONE (12:36)
[2019-10-07] MEDS ORDERED: PROPOFOL 10 MG/ML 20 ML VIAL IV ONE (12:36)
[2019-10-07] MEDS ORDERED: HYDROmorphone (PF) 1 MG/ML ONE (12:36)
[2019-10-07] MEDS ORDERED: LIDOCAINE 1% INJ 10MG/ML (20 ML MDV) ONE (12:36)
[2019-10-07] MEDS ORDERED: NEOSTIGMINE 1 MG/ML 10 ML VIAL ONE (12:36)
[2019-10-07] MEDS ORDERED: GLYCOPYRROLATE 0.2 MG/ML 2 ML VIAL ONE (12:36)
[2019-10-07] MEDS ORDERED: fentaNYL (PF) 50 MCG/ML 2 ML AMP ONE (12:36)
[2019-10-07] MEDS ORDERED: ROCURONIUM BROMIDE 10 MG/ML 5 ML VIAL IV ONE (12:36)
[2019-10-07] MEDS ORDERED: HEPARIN SODIUM,PORCINE 5,000 UNIT/ML 1 ML VIAL ONE (12:36)
[2019-10-07] MEDS ORDERED: BUPIVACAIN-EPI 0.25%-1:200,000 30 ML VIAL SQ ONE (12:37)
[2019-10-07] MEDS ORDERED: CLINDAMYCIN 150 MG/ML 4 ML VIAL IVPB ONE (13:02)
[2019-10-07] MEDS ORDERED: LACTATED RINGERS 1,000 ML IV ONE (13:21)
--- NOTE | 2019-10-07 13:31 | P.OP ---
Date of Procedure: 10/07/19 Preoperative Diagnosis: Cholecystitis Postoperative Diagnosis: Cholecystitis Procedure(s) Performed: Laparoscopic cholecystectomy Anesthesia: CHEKO Surgeon: Lazaro Bhatt Estimated Blood Loss (ml): 5 Pathology: other (Gallbladder) Condition: stable Disposition: PACU Description of Procedure: The patient was placed on the operating table. The patient received a general endotracheal tube anesthesia. The patients abdomen was prepped and draped in the usual sterile fashion. Through an infraumbilical stab incision, the fascia of the anterior abdominal wall was grasped with a pair of Kochers and then the Veress needle was placed in the peritoneal cavity. Position of the Veress needle was confirmed with positive drop test. The abdomen was then insufflated. After adequate insufflation, the 10 mm trocar was placed in the peritoneal cavity. Following this the laparoscope was placed in the peritoneal cavity. The patient was placed in the head-up, right side up position and then a 5 mm trocar was placed in the right lateral and right subcostal position under direct visualization. A 8 mm trocar was placed in the epigastric position. The gallbladder was grasped in the fundus and infundibulum. Traction on the gallbladder was placed in the lateral and the cephalad positions. The triangle of Calot was visualized.. The cystic duct was bluntly dissected until the union of the cystic duct and common bile duct was seen. A critical view of safety was achieved. The cystic duct was then divided and sealed with the Harmonic scissors. A PDS Endoloop was then placed throughout the cystic duct stump. The cystic artery divided and sealed with the Harmonic scissors. The gallbladder was then removed from the liver bed using Harmonic scissors. The gallbladder was then extracted through the epigastric port site. Operative field was checked for any bleeding spots and Harmonic scissors was used to coagulate the liver bed. The abdomen was irrigated. The trocars were removed. The skin was closed using interrupted 3-0 Vicryl suture. Dermabond dressing were applied. The patient tolerated the procedure well.
[2019-10-07] MEDS ORDERED: HYDROmorphone 1 MG/ML 1 ML SYRINGE IVP ONE (14:19)
[2019-10-07] MEDS: ONDANSETRON 4 MG/2 ML VIAL IVP PRN (17:27)
[2019-10-07] MEDS: AMPICILLIN-SULBACTAM 3 GM in SODIUM CHLORIDE 0.9% 100 ML IVPB SCH (17:28)
[2019-10-08] MEDS: AMPICILLIN-SULBACTAM 3 GM in SODIUM CHLORIDE 0.9% 100 ML IVPB SCH ×2 (00:59→08:12)
[2019-10-08] MEDS: SODIUM CHLORIDE 0.9% 1,000 ML IV SCH (08:12)
[2019-10-08 09:21] VITALS: BP 131/80; PULSE 56; RESP 16; TEMP 98.4
[2019-10-08] MEDS ORDERED: HYDROcodone/APAP 10-325MG 1 EACH TAB PO PRN (10:14)
--- NOTE | 2019-10-08 10:24 | CDI ---
Documentation Clarification Form Date: 10/08/2019 09:59:35 AM From: Barbara Manzanares RN, CCDS Admit Date: 10/06/2019 04:08:00 PM Patient Name: Torri Duarte Visit Number: [id number] Discharge Date: ATTENTION: The Clinical Documentation Specialists (CDI) and [facility] Coding Staff appreciate your assistance in clarifying documentation. Please respond to the clarification below the line at the bottom and electronically sign. The CDI & [facility] Coding staff will review the response and follow-up if needed. Please note: Queries are made part of the Legal Health Record. If you have any questions, please contact the author of this message via ITS. Dr. Lazaro Bhatt The patient presented with right upper quadrant abdominal pain. H/P has Cholelithiasis and further specificity is requested. History/Risk Factors: Heavy menses, Mitral valve regurgitation, Current every day smoker Clinical Indicators: 34-year old female present to ED on 10/05 with complaints of chest pain, epigastric pain and shortness of breath. On ED evaluation she appeared to have right upper quadrant tenderness with a positive Smith sign. 10/05 Lab findings: WBC 11.0, Total Bilirubin 2.1, AST 547, ALT 285, Coronavirus Not detected 10/05 Abbominal US: Upper quadrant ultrasound was ordered showing acute acalculous cholecystitis. 10/05Vital Signs: 11:34: 140/108 67 24 97.4 100% RA, Treatment: .9NS IV bolus then @ 75 mls/hr unasyn 3 gm IV X1 then Q8 hrs 10/06 Laparoscopic Cholecystectomy In your professional opinion, can you please further specify/clarify Cholecystitis? Acute Acalculous Cholecystitis Chronic Acalculous Cholecystitis Other, please specify Unable to determine (Last Revision: July 2017) Acute acalculous cholecystitis MTDD
--- NOTE | 2019-10-08 11:21 | P.DS ---
Providers Date of admission: 10/06/19 16:08 Expected date of discharge: 10/08/19 Attending physician: Lazaro Bhatt Primary care physician: Hernandez Sarah [facility] Course: This is a 34-year-old female was admitted to the hospital for acute cholecystitis. Patient underwent laparoscopic cholecystectomy. Please see hospital chart for details. On the day of discharge her vital signs are stable. Her abdomen soft. Incision sites were clean dry and intact. Patient Condition at Discharge: Good Plan - Discharge Summary Discharge Rx Participant: Yes New Discharge Prescriptions: New Docusate [Colace] 100 mg PO BID #20 capsule HYDROcodone/APAP 5-325MG [[place] 5-325] 1 tab PO Q6HR PRN #10 tab PRN Reason: Pain No Action Ferrous Sulfate [Iron] 325 mg PO TID PRN PRN Reason: LOW IRON Unknown Strength (Charcoal) 1 tab PO DAILY Discharge Medication List Ferrous Sulfate [Iron] 325 mg PO TID PRN 10/06/19 [History] Unknown Strength (Charcoal) 1 tab PO DAILY 10/06/19 [History] Docusate [Colace] 100 mg PO BID #20 capsule 10/08/19 [Rx] HYDROcodone/APAP 5-325MG [[place] 5-325] 1 tab PO Q6HR PRN #10 tab 10/08/19 [Rx] Follow up Appointment(s)/Referral(s): Hernandez Sarah DO [Primary Care Provider] - 1-2 days Lazaro Bhatt MD [STAFF PHYSICIAN] - 1 Week Patient Instructions/Handouts: Laparoscopic Cholecystectomy (DC) Activity/Diet/Wound Care/Special Instructions: Patient will be admitted Discharge Disposition: HOME SELF-CARE
== END 2019-10-08 12:18 | disposition home or self-care (01) ==
LOC: EC 11:27 → INTOOBSV 16:08 → OBSVTOIN 16:08 → 1SOBS 16:08 → UNDODISIN 10-08 12:18
PROVIDERS: ADMIT Surgery; ATTEND Surgery
DX: K81.2 Acute cholecystitis with chronic cholecystitis (principal); F41.9 Anxiety disorder, unspecified; F32.9 Major depressive disorder, single episode, unspecified; F17.200 Nicotine dependence, unspecified, uncomplicated; I34.0 Nonrheumatic mitral (valve) insufficiency; Z79.899 Other long term (current) drug therapy; Z88.6 Allergy status to analgesic agent; Z88.1 Allergy status to other antibiotic agents; Z98.890 Other specified postprocedural states; Z83.49 Family history of other endocrine, nutritional and metabolic diseases; Z82.5 Family history of asthma and other chronic lower respiratory diseases; Z03.818 Encounter for observation for suspected exposure to other biological agents ruled out
CPT/HCPCS: 96361; 96374; 99285; 36415; 93005; 85379; 88304; 80053; 83605; 83690; 84484; 85025; 81001; 81025; 87040; 71046; 76705; 71275; 47562; G0378 ×3; U0003; J2250; J2060 ×2; J1644; J2710; J2405 ×2; J2001; J3010; J1885; J1170 ×3; J0295 ×3; J0330; J2704; Q9967

== ENCOUNTER 2019-10-12 07:41 | Emergency (ER) | payer OTHER ==
[2019-10-12 07:46] VITALS: RESP 16; TEMP 98.6
--- NOTE | 2019-10-12 08:04 | ED ---
General Adult HPI - General Chief complaint: Recheck/Abnormal Lab/Rx Stated complaint: post surg problem Time Seen by Provider: 10/12/19 07:48 Source: patient Mode of arrival: ambulatory Limitations: no limitations - History of Present Illness Initial comments: Dictation was produced using [employer] dictation software. please excuse any grammatical, word or spelling errors. This patient was cared for during a federal and state declared state of ergency secondary to Covid 19 Chief Complaint: 34-year-old female presents with abdominal pain. History of Present Illness: 34-year-old female she is postop day 5 for laparoscopic cholecystectomy. 5 days ago patient had acute cholecystitis. She underwent laparoscopic cholecystectomy. Since procedure patient has been complaining of worsening abdominal pain. She states that the pain feels slightly worse when she lies flat. Patient is unable to get comfortable. She tossed and turns at night. Denies any fever, chills or night sweats. No nausea or vomiting. She has not been resting like she should. She states she's been walking around a lot since procedure when she was instead told to rest. She does report that her pain is getting worse. She also has some vague shoulder cramping to the right shoulder. The ROS documented in this emergency department record has been reviewed and confirmed by me. Those systems with pertinent positive or negative responses have been documented in the HPI. All other systems are other negative and/or noncontributory. PHYSICAL EXAM: General Impression: Alert and oriented x3, not in acute distress HEENT: Normocephalic atraumatic, extra-ocular movements intact, pupils equal and reactive to light bilaterally, mucous membranes moist. Cardiovascular: Heart regular rate and rhythm Chest: Able to complete full sentences, no retractions, no tachypnea Abdomen: abdomen soft, non-distended, no organomegaly, surgical incisions clean dry and intact, tenderness to the right lower quadrant that is very minimal, nonrigid Musculoskeletal: Pulses present and equal in all extremities, no peripheral edema Motor: no focal deficits noted Neurological: CN II-XII grossly intact, no focal motor or sensory deficits noted Skin: Intact with no visualized rashes Psych: Normal affect and mood ED course: 34-year-old female presents with abdominal pain. She is postop day 5 for laparoscopic cholecystectomy. Vital signs upon arrival are within acceptable limits.Laboratory evaluation obtained. No leukocytosis. Metabolic panel is unremarkable. Abdominal labs are negative. test is negative. Computed tomography scan of the abdomen and pelvis with contrast was obtained. There does appear to be a small amount of fluid in the gallbladder fossa. Patient reevaluated at bedside she does appear to be well. . Dr. Bhatt was contacted and agrees with discharge. Patient is stable at this time. She does have an appointment soon patient clear for discharge. Return parameters discussed. Patient agreeable to disposition. - Related Data Home Medications Medication Instructions Recorded Confirmed Ferrous Sulfate [Iron] 325 mg PO TID PRN 10/06/19 10/06/19 Unknown Strength (Charcoal) 1 tab PO DAILY 10/06/19 10/06/19 Previous Rx's Medication Instructions Recorded Docusate [Colace] 100 mg PO BID #20 capsule 10/08/19 HYDROcodone/APAP 5-325MG [[employer] 1 tab PO Q6HR PRN #10 tab 10/08/19 5-325] HYDROcodone/APAP 5-325MG [[employer] 1 tab PO Q6HR PRN #9 tab 10/09/19 5-325] Allergies Allergy/AdvReac Type Severity Reaction Status Date / Time aspirin Allergy Anaphylaxis Verified 10/12/19 07:46 cephalexin [From Keflex] Allergy Anaphylaxis Verified 10/12/19 07:46 Review of Systems ROS Statement: Those systems with pertinent positive or pertinent negative responses have been documented in the HPI. ROS Other: All systems not noted in ROS Statement are negative. Past Medical History Past Medical History: No Reported History Additional Past Medical History / Comment(s): heavy frequent menses, mitral valve regurgitation, HX of sinus arrhythmia tachycardia History of Any Multi-Drug Resistant Organisms: None Reported Past Surgical History: Breast Surgery Additional Past Surgical History / Comment(s): turmor removed from right breast in 2005, I&D of boil on left leg, no MRSA Past Anesthesia/Blood Transfusion Reactions: Previous Problems w/ Anesthesia Additional Past Anesthesia/Blood Transfusion Reaction / Comment(s): states "takes longer to wake up" Past Psychological History: Anxiety, Depression Smoking Status: Current every day smoker Past Alcohol Use History: None Reported Past Drug Use History: Marijuana - Past Family History Mother Family Medical History: Thyroid Disorder Father Additional Family Medical History / Comment(s): pt states none Son(s) Family Medical History: Asthma General Exam Limitations: no limitations Course Vital Signs 10/12/19 07:42 Temperature 98.6 F Pulse Rate 70 Respiratory 16 Rate Blood Pressure 138/94 O2 Sat by Pulse 100 Oximetry Medical Decision Making - Lab Data Result diagrams: 10/12/19 08:25 10/12/19 08:25 Lab Results 10/12/19 10/12/19 10/12/19 Range/Units 08:25 08:25 08:26 WBC 6.3 (3.8-10.6) k/uL RBC 3.99 (3.80-5.40) m/uL Hgb 10.5 L (11.4-16.0) gm/dL Hct 31.1 L (34.0-46.0) % MCV 77.9 L (80.0-100.0) fL MCH 26.4 (25.0-35.0) pg MCHC 33.9 (31.0-37.0) g/dL RDW 18.3 H (11.5-15.5) % Plt Count 261 (150-450) k/uL Neutrophils % 60 % Lymphocytes % 32 % Monocytes % 4 % Eosinophils % 4 % Basophils % 0 % Neutrophils # 3.8 (1.3-7.7) k/uL Lymphocytes # 2.0 (1.0-4.8) k/uL Monocytes # 0.2 (0-1.0) k/uL Eosinophils # 0.2 (0-0.7) k/uL Basophils # 0.0 (0-0.2) k/uL Anisocytosis Slight Microcytosis Slight Sodium 138 (137-145) mmol/L Potassium 4.5 (3.5-5.1) mmol/L Chloride 109 H (98-107) mmol/L Carbon Dioxide 22 (22-30) mmol/L Anion Gap 7 mmol/L BUN 10 (7-17) mg/dL Creatinine 0.68 (0.52-1.04) mg/dL Est GFR (CKD-EPI)AfAm >90 (>60 ml/min/1.73 sqM) Est GFR (CKD-EPI)NonAf >90 (>60 ml/min/1.73 sqM) Glucose 87 (74-99) mg/dL Calcium 8.9 (8.4-10.2) mg/dL Total Bilirubin 0.2 (0.2-1.3) mg/dL AST 22 (14-36) U/L ALT 44 H (4-34) U/L Alkaline Phosphatase 65 (38-126) U/L Total Protein 6.3 (6.3-8.2) g/dL Albumin 3.6 (3.5-5.0) g/dL Lipase 98 (23-300) U/L Urine HCG, Qual Not Detected (Not Detectd) Disposition Clinical Impression: Abdominal pain Disposition: HOME SELF-CARE Condition: Good Instructions (If sedation given, give patient instructions): Abdominal Pain (ED) Is patient prescribed a controlled substance at d/c from ED?: No Referrals: Lazaro Bhatt MD [STAFF PHYSICIAN] - 1-2 days Time of Disposition: 10:03
--- NOTE | 2019-10-12 08:55 | CT ---
EXAMINATION TYPE: CT abdomen pelvis w con DATE OF EXAM: 10/12/2019 REFERENCE: NONE HISTORY: post surgical pain HISTORY: drainage from incision site, Rt sided pain, post op lap otilia CT DLP: 627.3 mGy Automated exposure control for dose reduction was used. TECHNIQUE: Helical acquisition through the abdomen and pelvis was obtained following the oral ingesti on of without Oral Contrast and following intravenous administration of 100 mL of Isovue 300. The reilly a was reformatted in axial, coronal and sagittal projections. FINDINGS: Visualized portions of the lungs are clear. There is no pleural or pericardial fluid. The heart is not enlarged. Within the abdomen, the liver and spleen appear normal. The gallbladder is not identified. There is a small amount of fluid in the gallbladder fossa. The adrenal glands are normal. Both kidneys demonstrate function and appear morphologically normal. Limited views of the pancreas are unremarkable. Within the pelvis, the bladder is nondistended. The uterus is slightly hyperemic. The ovaries are not clearly distinguished. There is a small amount of free fluid. Lack of bowel contrast makes it difficult to distinguish bowel from other air-containing structure blankenship ch as abscess. The appendix is not visualized with certainty. No free air is identified. IMPRESSION: 1. LIMITED EXAMINATION DUE TO THE LACK OF BOWEL CONTRAST. 2. SMALL AMOUNT OF FLUID IN THE GALLBLADDER FOSSA AND WITHIN THE PELVIS. 3. IT WOULD BE DIFFICULT TO EXCLUDE ABSCESS BASED UPON THIS EXAMINATION.
[2019-10-12 09:00] LABS: ALT 44 U/L (4-34); AST 22 U/L (14-36); African American GFR (CKD) >90 (>60 ml/min/1.73 sqM); Albumin 3.6 g/dL (3.5-5.0); Alkaline Phosphatase 65 U/L (38-126); Anion Gap 7 mmol/L; Blood Urea Nitrogen 10 mg/dL (7-17); Calcium 8.9 mg/dL (8.4-10.2); Carbon Dioxide 22 mmol/L (22-30); Chloride 109 mmol/L (98-107); Glucose 87 mg/dL (74-99); Non-African American GFR(CKD) >90 (>60 ml/min/1.73 sqM); Potassium 4.5 mmol/L (3.5-5.1); Sodium 138 mmol/L (137-145); Total Bilirubin 0.2 mg/dL (0.2-1.3); Total Protein 6.3 g/dL (6.3-8.2)
[2019-10-12 09:08] LABS: Anisocytosis Slight; Basophils % (A) 0 %; Eosinophils # (A) 0.2 k/uL (0-0.7); Eosinophils % (A) 4 %; HCT 31.1 % (34.0-46.0); HGB 10.5 gm/dL (11.4-16.0); Lymphocytes % (A) 32 %; MCH 26.4 pg (25.0-35.0); MCHC 33.9 g/dL (31.0-37.0); MCV 77.9 fL (80.0-100.0); Mean Platelet Volume 8.8; Microcytosis Slight; Monocytes # (A) 0.2 k/uL (0-1.0); Monocytes % (A) 4 %; Neutrophils # (A) 3.8 k/uL (1.3-7.7); Neutrophils % (A) 60 %; Platelet Count 261 k/uL (150-450); RBC 3.99 m/uL (3.80-5.40); RDW 18.3 % (11.5-15.5); WBC 6.3 k/uL (3.8-10.6)
[2019-10-12 10:26] VITALS: BP 122/63; PULSE 71
== END 2019-10-12 10:25 | disposition home or self-care (01) ==
LOC: EC 07:41
DX: R10.9 Unspecified abdominal pain (principal); F17.200 Nicotine dependence, unspecified, uncomplicated; Z88.1 Allergy status to other antibiotic agents; Z88.6 Allergy status to analgesic agent; Z90.49 Acquired absence of other specified parts of digestive tract
CPT/HCPCS: 36415; 86900; 86901; 80053; 83690; 85025; 86850; 81025; 74177; 99284; Q9967

== ENCOUNTER 2020-04-29 07:18 | Observation (INO) | payer OTHER ==
[2020-04-29] MEDS ORDERED: SODIUM CHLORIDE 0.9% 2,000 ML IV ONE (07:34)
[2020-04-29] MEDS ORDERED: diphenhydrAMINE 50 MG/ML 1 ML VIAL IVP STA (07:35)
[2020-04-29] MEDS ORDERED: METOCLOPRAMIDE 5 MG/ML 2 ML VIAL IVP STA (07:35)
[2020-04-29] MEDS ORDERED: MAG HYDROX/AL HYDROX/SIMETH 30 ML, HYOSCYAMINE ELIXIR 10 ML, LIDOCAINE VISCOUS 2% 10 ML PO STA ×3 (07:37)
--- NOTE | 2020-04-29 07:37 | ED ---
General Adult HPI - General Chief complaint: Nausea/Vomiting/Diarrhea Stated complaint: vomiting Time Seen by Provider: 04/29/20 07:21 Source: family, RN notes reviewed Mode of arrival: ambulatory Limitations: no limitations - History of Present Illness Initial comments: 34-year-old female presents emergency Department with chief complaint of nausea vomiting. Patient states his been ongoing for last 3 days. Patient states she has diffuse abdominal pain, reflux. Patient states that she was seen in a hospital in [place] few days ago was given fluids and Zofran. Patient states that persists. She does admit to marijuana use. Patient's had a cholecystectomy in September states she cannot remember who the surgeon was. She states she there is no chance she is currently on her menstrual cycle no dysuria no hematuria and diarrhea constipation. - Related Data Home Medications Medication Instructions Recorded Confirmed No Known Home Medications 04/29/20 04/29/20 Allergies Allergy/AdvReac Type Severity Reaction Status Date / Time aspirin Allergy Anaphylaxis Verified 04/29/20 08:09 cephalexin [From Keflex] Allergy Anaphylaxis Verified 04/29/20 08:09 Review of Systems ROS Statement: Those systems with pertinent positive or pertinent negative responses have been documented in the HPI. ROS Other: All systems not noted in ROS Statement are negative. Past Medical History Past Medical History: No Reported History Additional Past Medical History / Comment(s): heavy frequent menses, mitral valve regurgitation, HX of sinus arrhythmia tachycardia History of Any Multi-Drug Resistant Organisms: None Reported Past Surgical History: Breast Surgery Additional Past Surgical History / Comment(s): turmor removed from right breast in 2005, I&D of boil on left leg, no MRSA Past Anesthesia/Blood Transfusion Reactions: Previous Problems w/ Anesthesia Additional Past Anesthesia/Blood Transfusion Reaction / Comment(s): states "takes longer to wake up" Past Psychological History: Anxiety, Depression Smoking Status: Current every day smoker Past Alcohol Use History: None Reported Past Drug Use History: Marijuana - Past Family History Mother Family Medical History: Thyroid Disorder Father Additional Family Medical History / Comment(s): pt states none Son(s) Family Medical History: Asthma General Exam Limitations: no limitations General appearance: alert, in no apparent distress Head exam: Present: atraumatic, normocephalic, normal inspection Eye exam: Present: normal appearance, PERRL, EOMI. Absent: scleral icterus, conjunctival injection, periorbital swelling ENT exam: Present: normal exam, normal oropharynx, mucous membranes moist Neck exam: Present: normal inspection, full ROM. Absent: tenderness, meningismus, lymphadenopathy Respiratory exam: Present: normal lung sounds bilaterally. Absent: respiratory distress, wheezes, rales, rhonchi, stridor Cardiovascular Exam: Present: regular rate, normal rhythm, normal heart sounds. Absent: systolic murmur, diastolic murmur, rubs, gallop, clicks GI/Abdominal exam: Present: soft, tenderness (diffuse), normal bowel sounds. Absent: distended, guarding, rebound, rigid Back exam: Absent: CVA tenderness (R), CVA tenderness (L) Neurological exam: Present: alert, oriented X3 Skin exam: Present: warm, dry, intact, normal color. Absent: rash Course Vital Signs 04/29/20 04/29/20 07:19 10:46 Temperature 98.4 F Pulse Rate 71 60 Respiratory 24 18 Rate Blood Pressure 138/85 141/89 O2 Sat by Pulse 99 98 Oximetry Medical Decision Making - Medical Decision Making Case discussed with Dr. Aguirre accepts admission. Patient CT shows evidence of severe colitis, probable Crohn's disease. Patient still has residual pain, nausea is improved. Patient will be admitted with GI consult. Dr. veronica link ommended the patient started on lactated Ringer's with no steroids until GI seen - Lab Data Result diagrams: 04/29/20 07:45 04/29/20 07:45 Lab Results 04/29/20 04/29/20 04/29/20 Range/Units 07:45 07:45 08:51 WBC 12.8 H (3.8-10.6) k/uL RBC 4.02 (3.80-5.40) m/uL Hgb 10.2 L (11.4-16.0) gm/dL Hct 30.0 L (34.0-46.0) % MCV 74.6 L (80.0-100.0) fL MCH 25.4 (25.0-35.0) pg MCHC 34.0 (31.0-37.0) g/dL RDW 18.2 H (11.5-15.5) % Plt Count 290 (150-450) k/uL MPV 8.1 Neutrophils % 78 % Lymphocytes % 17 % Monocytes % 3 % Eosinophils % 1 % Basophils % 0 % Neutrophils # 10.1 H (1.3-7.7) k/uL Lymphocytes # 2.1 (1.0-4.8) k/uL Monocytes # 0.4 (0-1.0) k/uL Eosinophils # 0.1 (0-0.7) k/uL Basophils # 0.0 (0-0.2) k/uL Anisocytosis Slight Microcytosis Moderate Sodium 140 (137-145) mmol/L Potassium 3.6 (3.5-5.1) mmol/L Chloride 111 H (98-107) mmol/L Carbon Dioxide 22 (22-30) mmol/L Anion Gap 7 mmol/L BUN 12 (7-17) mg/dL Creatinine 0.80 (0.52-1.04) mg/dL Est GFR (CKD-EPI)AfAm >90 (>60 ml/min/1.73 sqM) Est GFR (CKD-EPI)NonAf >90 (>60 ml/min/1.73 sqM) Glucose 123 H (74-99) mg/dL Calcium 9.0 (8.4-10.2) mg/dL Total Bilirubin 0.5 (0.2-1.3) mg/dL AST 18 (14-36) U/L ALT 12 (4-34) U/L Alkaline Phosphatase 64 (38-126) U/L Total Protein 6.9 (6.3-8.2) g/dL Albumin 3.9 (3.5-5.0) g/dL Amylase 90 (30-110) U/L Lipase 85 (23-300) U/L Urine Color Yellow Urine Appearance Cloudy H (Clear) Urine pH 7.5 (5.0-8.0) Ur Specific Leggett 1.017 (1.001-1.035) Urine Protein Trace H (Negative) Urine Glucose (UA) Negative (Negative) Urine Ketones 1+ H (Negative) Urine Blood Large H (Negative) Urine Nitrite Negative (Negative) Urine Bilirubin Negative (Negative) Urine Urobilinogen <2.0 (<2.0) mg/dL Ur Leukocyte Esterase Negative (Negative) Urine RBC >182 H (0-5) /hpf Urine WBC 1 (0-5) /hpf Amorphous Sediment Occasional H (None) /hpf Urine Mucus Rare H (None) /hpf Urine HCG, Qual (Not Detectd) 04/29/20 Range/Units 08:51 WBC (3.8-10.6) k/uL RBC (3.80-5.40) m/uL Hgb (11.4-16.0) gm/dL Hct (34.0-46.0) % MCV (80.0-100.0) fL MCH (25.0-35.0) pg MCHC (31.0-37.0) g/dL RDW (11.5-15.5) % Plt Count (150-450) k/uL MPV Neutrophils % % Lymphocytes % % Monocytes % % Eosinophils % % Basophils % % Neutrophils # (1.3-7.7) k/uL Lymphocytes # (1.0-4.8) k/uL Monocytes # (0-1.0) k/uL Eosinophils # (0-0.7) k/uL Basophils # (0-0.2) k/uL Anisocytosis Microcytosis Sodium (137-145) mmol/L Potassium (3.5-5.1) mmol/L Chloride (98-107) mmol/L Carbon Dioxide (22-30) mmol/L Anion Gap mmol/L BUN (7-17) mg/dL Creatinine (0.52-1.04) mg/dL Est GFR (CKD-EPI)AfAm (>60 ml/min/1.73 sqM) Est GFR (CKD-EPI)NonAf (>60 ml/min/1.73 sqM) Glucose (74-99) mg/dL Calcium (8.4-10.2) mg/dL Total Bilirubin (0.2-1.3) mg/dL AST (14-36) U/L ALT (4-34) U/L Alkaline Phosphatase (38-126) U/L Total Protein (6.3-8.2) g/dL Albumin (3.5-5.0) g/dL Amylase (30-110) U/L Lipase (23-300) U/L Urine Color Urine Appearance (Clear) Urine pH (5.0-8.0) Ur Specific Leggett (1.001-1.035) Urine Protein (Negative) Urine Glucose (UA) (Negative) Urine Ketones (Negative) Urine Blood (Negative) Urine Nitrite (Negative) Urine Bilirubin (Negative) Urine Urobilinogen (<2.0) mg/dL Ur Leukocyte Esterase (Negative) Urine RBC (0-5) /hpf Urine WBC (0-5) /hpf Amorphous Sediment (None) /hpf Urine Mucus (None) /hpf Urine HCG, Qual Not Detected (Not Detectd) Disposition Clinical Impression: Nausea & vomiting, Colitis, Abdominal pain Disposition: ADMITTED IP TO THIS [facility] Condition: Fair Referrals: Hernandez Sarah DO [Primary Care Provider] - 1-2 days
[2020-04-29 07:50] LABS: Anisocytosis Slight; Basophils % (A) 0 %; Eosinophils # (A) 0.1 k/uL (0-0.7); Eosinophils % (A) 1 %; HGB 10.2 gm/dL (11.4-16.0); Lymphocytes # (A) 2.1 k/uL (1.0-4.8); Lymphocytes % (A) 17 %; MCH 25.4 pg (25.0-35.0); MCV 74.6 fL (80.0-100.0); Mean Platelet Volume 8.1; Microcytosis Moderate; Monocytes # (A) 0.4 k/uL (0-1.0); Monocytes % (A) 3 %; Neutrophils # (A) 10.1 k/uL (1.3-7.7); Neutrophils % (A) 78 %; Platelet Count 290 k/uL (150-450); RBC 4.02 m/uL (3.80-5.40); RDW 18.2 % (11.5-15.5); WBC 12.8 k/uL (3.8-10.6)
[2020-04-29 07:59] LABS: ALT 12 U/L (4-34); AST 18 U/L (14-36); African American GFR (CKD) >90 (>60 ml/min/1.73 sqM); Albumin 3.9 g/dL (3.5-5.0); Alkaline Phosphatase 64 U/L (38-126); Amylase 90 U/L (30-110); Anion Gap 7 mmol/L; Blood Urea Nitrogen 12 mg/dL (7-17); Carbon Dioxide 22 mmol/L (22-30); Chloride 111 mmol/L (98-107); Glucose 123 mg/dL (74-99); Lipase 85 U/L (23-300); Non-African American GFR(CKD) >90 (>60 ml/min/1.73 sqM); Potassium 3.6 mmol/L (3.5-5.1); Sodium 140 mmol/L (137-145); Total Bilirubin 0.5 mg/dL (0.2-1.3); Total Protein 6.9 g/dL (6.3-8.2)
[2020-04-29] MEDS ORDERED: MORPHINE SULFATE 4 MG/ML SYRINGE IVP STA (08:53)
[2020-04-29] MEDS ORDERED: ONDANSETRON 4 MG/2 ML VIAL IVP STA (08:53)
--- NOTE | 2020-04-29 09:44 | CT ---
EXAMINATION TYPE: CT abdomen pelvis w con DATE OF EXAM: 04/29/2020 HISTORY: Abd pain with vomiting for [address] DLP: 637.8mGycm Automated Exposure Control for Dose Reduction was Utilized. CONTRAST: CT scan of the abdomen and pelvis is performed with IV Contrast, patient injected with 100 mL of Isov ue 300. COMPARISON: CT abdomen and pelvis October 12, 2019 FINDINGS: LUNG BASES: No significant abnormality is appreciated. LIVER/GB: Liver upper limits of normal in size. Gallbladder not seen and presumed surgically absent PANCREAS: No significant abnormality is seen. SPLEEN: No significant abnormality is seen. ADRENALS: No significant abnormality is seen. KIDNEYS: Symmetric cord measured uptake and excretion without hydronephrosis seen bilaterally. BOWEL: Suboptimal evaluation of bowel without enteric contrast and patient has little intra-abdominal fat. No suspicious small or large bowel dilatation. Gohs-ge-akvgaoev wall thickening throughout the transverse colon and portions of the left colon is present. Additional areas of mild wall thickening in the sigmoid rectal colon are identified. Areas of mild to moderate wall thickening throughout smal l bowel loops particularly involving the terminal ileum are felt present. Appendix appears within nor mal limits from posterior aspect of slightly highly positioned cecum in the right mid abdomen. UTERUS/ADNEXA: Heterogeneous anteverted uterus. Somewhat arcuate-type morphology may be present hali lar to prior axial image 67 Ovoid vague area of hypodensity left anterior aspect suspicious for fibro id. Small to moderate amount of free fluid in pelvic cul-de-sac axial image 66. LYMPH NODES: No greater than 1cm abdominal or pelvic lymph nodes are appreciated. OSSEOUS STRUCTURES: No significant abnormality is seen. OTHER: No significant additional abnormality is seen. IMPRESSION: Suboptimal study, Mild to moderate multifocal acute uncomplicated enterocolitis is felt p resent from a correlate clinically. Differential includes infectious and inflammatory etiologies. Superintendent Renting Managing hn's disease needs to be considered in patient of this age.
[2020-04-29 10:10] LABS: Amorphous Sediment,Urine Occasional /hpf; Appearance,Urine Cloudy (Clear); Bilirubin,Urine Negative (Negative); Blood,Urine Large (Negative); Color,Urine Yellow; Glucose,Urine (UA) Negative (Negative); Ketones,Urine 1+ (Negative); Leukocyte Esterase,Urine Negative (Negative); Mucus,Urine Rare /hpf; Nitrite,Urine Negative (Negative); PH, Urine 7.5 (5.0-8.0); Protein,Urine Trace (Negative); RBC,Urine >182 /hpf (0-5); Specific Gravity,Urine 1.017 (1.001-1.035); Urobilinogen,Urine <2.0 mg/dL (<2.0); WBC,Urine 1 /hpf (0-5)
[2020-04-29] MEDS ORDERED: LACTATED RINGERS 1,000 ML IV ONE (10:48)
[2020-04-29] MEDS ORDERED: NALOXONE 0.4 MG/ML 1 ML VIAL IV PRN (10:49)
[2020-04-29] MEDS: ONDANSETRON 4 MG/2 ML VIAL IVP PRN (21:00)
[2020-04-29] MEDS: FAMOTIDINE 20 MG TAB PO SCH (21:01)
[2020-04-29] MEDS: MORPHINE SULFATE 2 MG/ML SYRINGE IV PRN (21:01)
--- NOTE | 2020-04-29 22:49 | P.HPIM ---
History of Present Illness H&P Date: 04/29/20 Chief Complaint: Abdominal pain Consultation: This is a 34-year-old patient who follows at the office of Dr. Sarah. Chronic stable medical conditions include mitral valve regurgitation, sinus arrhythmia and tachycardia. In September 2019 patient underwent cholecystectomy by Dr. Bhatt. Patient continues to have abdominal pain. Also was having increasing menstrual bleeding. Also been having intermittent nausea. She felt this was predominantly related to the gallbladder surgery. Patient has a pending appointment with raspberry checker. Patient is having increasing pain in the last 2 or 3 days. Central abdomen. Also nausea vomiting for 3-4 days. Unable to keep anything down. Prior to that she is able to keep food down. Not in the last 3-4 days. Denies any fever and chills. Review of systems: GEN.: Tired EYES: None HEENT: None NECK: None RESPIRATORY: None CARDIOVASCULAR: None GASTROINTESTINAL: As above GENITOURINARY: As above MUSCULOSKELETAL: None LYMPHATICS: None HEMATOLOGICAL: None PSYCHIATRY: None NEUROLOGICAL: None Past medical history to include: Mitral valve regurgitation, sinus arrhythmia, sinus tachycardia, HSV positive, depression Social history: Smokes anywhere from 3-5 cigars a day,, cocaine the past.. 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 Does 3-4 g of marijuana week. Family history: Thyroid disorder Physical examination: VITAL SIGNS: 98.4, 71, 24, 138/85, 99% room air GENERAL: BMI 22.9, laying in bed, slightly uncomfortable EYES: Pupils equal. Conjunctiva normal. HEENT: External appearance of nose and ears normal, oral cavity grossly normal. NECK: JVD not raised; masses not palpable. HEART: First and second heart sounds are normal; no edema. LUNGS: Respiratory rate normal; clear to auscultation. ABDOMEN: Soft, diffuse central tenderness, no guarding rigidity, liver spleen not palpable, no masses palpable. PSYCH: Alert and oriented x3; mood and affect likely anxious. NEUROLOGICAL: Cranial nerves grossly intact; no facial asymmetry, power and sensation grossly intact. LYMPHATICS: No lymph nodes palpable in the axilla and neck INVESTIGATIONS, reviewed in the clinical context: White count 12.8 hemoglobin 10.2 platelets 290 potassium 3.6 creatinine 0.80 Computed tomography scan of the abdomen-mild to moderate wall thickening throughout the transverse colon and portions of the left colon is present. Initially 80s of mild wall thickening in the sigmoid rectal: 95. It is a mild to moderate wall thickening throughout the small bowel loops but agreed wanted the temporal area and also found to be present. Assessment: -This is a patient presents with intermittent progressive abdominal pain for last 6 months. Now has developed nausea vomiting. Unable to keep any food dharmesh n. No obvious fever and chills. Computed tomography scan findings showing bowel thickening of the distal small bowel and the colon strongly suggestive of inflammatory bowel disease. -Chronic nicotine dependence patient's cigarette smoker -Chronic marijuana recreational use, does smoke marijuana daily Plan: Patient put on clear liquids. IV fluids. Lovenox for DVT prophylaxis. GI was consulted. Care was discussed with the patient. Past Medical History Past Medical History: No Reported History Additional Past Medical History / Comment(s): Irregular heavy frequent menses, sinus arrhythmia tachycardia, iron anemia History of Any Multi-Drug Resistant Organisms: None Reported Past Surgical History: Breast Surgery, Cholecystectomy Additional Past Surgical History / Comment(s): R breast benign tumor removed, D&C/benign uterine tumor, I&D L leg boil. Past Anesthesia/Blood Transfusion Reactions: Previous Problems w/ Anesthesia Additional Past Anesthesia/Blood Transfusion Reaction / Comment(s): states "takes longer to wake up" Smoking Status: Current every day smoker - Past Family History Mother Family Medical History: Thyroid Disorder Father Family Medical History: COPD Additional Family Medical History / Comment(s): pt states none Son(s) Family Medical History: Asthma Medications and Allergies Home Medications Medication Instructions Recorded Confirmed Type No Known Home Medications 04/29/20 04/29/20 History Allergies Allergy/AdvReac Type Severity Reaction Status Date / Time aspirin Allergy Anaphylaxis Verified 04/29/20 08:09 cephalexin [From Keflex] Allergy Anaphylaxis Verified 04/29/20 08:09 Physical Exam Vitals: Vital Signs Temp Pulse Pulse Resp BP BP Pulse Ox 04/29/20 20:00 98.5 F 64 18 120/71 99 04/29/20 19:38 97.6 F 62 18 122/68 98 04/29/20 16:21 97.9 F 56 L 16 123/78 99 04/29/20 15:11 98.1 F 62 16 132/68 99 04/29/20 11:56 98.1 F 62 16 138/78 98 04/29/20 10:46 60 18 141/89 98 04/29/20 07:19 98.4 F 71 24 138/85 99 Intake and Output 04/29/20 04/29/20 04/29/20 06:59 14:59 22:59 Other: Weight 65.771 kg 66.4 kg Results CBC & Chem 7: 04/29/20 07:45 04/29/20 07:45 Labs: Abnormal Lab Results - Last 24 Hours (Table) 04/29/20 04/29/20 04/29/20 Range/Units 07:45 07:45 08:51 WBC 12.8 H (3.8-10.6) k/uL Hgb 10.2 L (11.4-16.0) gm/dL Hct 30.0 L (34.0-46.0) % MCV 74.6 L (80.0-100.0) fL RDW 18.2 H (11.5-15.5) % Neutrophils # 10.1 H (1.3-7.7) k/uL Chloride 111 H (98-107) mmol/L Glucose 123 H (74-99) mg/dL Urine Appearance Cloudy H (Clear) Urine Protein Trace H (Negative) Urine Ketones 1+ H (Negative) Urine Blood Large H (Negative) Urine RBC >182 H (0-5) /hpf Amorphous Sediment Occasional H (None) /hpf Urine Mucus Rare H (None) /hpf Thrombosis Risk Factor Assmnt - Choose All That Apply Any of the Below Risk Factors Present?: No Other Risk Factors: No Other congenital or acquired thrombophilia - If yes, enter type in comment: No Thrombosis Risk Factor Assessment Level: Very Low Risk
[2020-04-30] MEDS: LACTATED RINGERS 1,000 ML IV SCH ×4 (01:28→20:27)
[2020-04-30] MEDS: MORPHINE SULFATE 2 MG/ML SYRINGE IV PRN ×4 (05:38→20:20)
[2020-04-30] MEDS: ONDANSETRON 4 MG/2 ML VIAL IVP PRN ×2 (05:44→14:46)
[2020-04-30] MEDS ORDERED: PANTOPRAZOLE 40 MG/10 ML VIAL IV SCH (09:00)
[2020-04-30] MEDS: FAMOTIDINE 20 MG TAB PO SCH ×2 (09:03→20:21)
[2020-04-30 09:18] LABS: Anisocytosis Slight; Basophils % (A) 0 %; Eosinophils # (A) 0.1 k/uL (0-0.7); Eosinophils % (A) 1 %; HCT 26.1 % (34.0-46.0); Lymphocytes # (A) 2.7 k/uL (1.0-4.8); Lymphocytes % (A) 46 %; MCH 24.9 pg (25.0-35.0); MCHC 32.6 g/dL (31.0-37.0); MCV 76.5 fL (80.0-100.0); Mean Platelet Volume 9.7; Microcytosis Slight; Monocytes # (A) 0.2 k/uL (0-1.0); Monocytes % (A) 3 %; Neutrophils # (A) 2.8 k/uL (1.3-7.7); Neutrophils % (A) 47 %; Platelet Count 216 k/uL (150-450); RBC 3.42 m/uL (3.80-5.40); RDW 18.3 % (11.5-15.5); WBC 5.9 k/uL (3.8-10.6)
[2020-04-30 09:21] LABS: HGB 8.5 gm/dL (11.4-16.0)
[2020-04-30 09:30] LABS: African American GFR (CKD) >90 (>60 ml/min/1.73 sqM); Anion Gap 1 mmol/L; Blood Urea Nitrogen 6 mg/dL (7-17); Calcium 8.2 mg/dL (8.4-10.2); Carbon Dioxide 27 mmol/L (22-30); Chloride 110 mmol/L (98-107); Glucose 90 mg/dL (74-99); Non-African American GFR(CKD) 88 (>60 ml/min/1.73 sqM); Potassium 3.7 mmol/L (3.5-5.1); Sodium 138 mmol/L (137-145)
[2020-04-30 09:59] LABS: C Reactive Protein <5.0 mg/L (<10.0)
[2020-04-30] MEDS: metroNIDAZOLE-NS PMX 500 MG in SALINE 1 100ML.BAG IVPB SCH ×2 (10:07→16:36)
[2020-04-30 11:12] LABS: Erythrocyte Sedimentation Rate 3 mm/hr (0-20)
[2020-04-30] MEDS: LEVOFLOXACIN 500MG-D5W PMX 500 MG in DEXTROSE/WATER 1 100ML.BAG IVPB SCH (11:19)
[2020-04-30 12:26] VITALS: BMI 22.9
[2020-04-30] MEDS ORDERED: DICYCLOMINE 20 MG TAB PO PRN (15:16)
--- NOTE | 2020-04-30 16:45 | P.PN ---
Subjective Progress Note Date: 04/30/20 This is a 34-year-old patient who follows at the office of Dr. Sarah. Chronic stable medical conditions include mitral valve regurgitation, sinus arrhythmia and tachycardia. In September 2019 patient underwent cholecystectomy by Dr. Bhatt. Patient continues to have abdominal pain. Also was having increasing menstrual bleeding. Also been having intermittent nausea. She felt this was predominantly related to the gallbladder surgery. Patient has a pending appointment with conference coordinator. Patient is having increasing pain in the last 2 or 3 days. Central abdomen. Also nausea vomiting for 3-4 days. Unable to keep anything down. Prior to that she is able to keep food down. Not in the last 3-4 days. Denies any fever and chills. 04/30/2020 Patient seen and evaluated in follow-up continues to have abdominal discomfort although states heating and ice pack alternating have helped somewhat. Patient is also on IV pain medication and has recently received it. Seen and evaluated by GI and started on Levaquin and Flagyl for the possibility of severe colitis. Patient continues to have nausea and states the vomiting has subsided. Patient is on clear liquids and will continue at this time. Patient is tolerating although asking to advance diet. GI recommending continuing with clear liquids at this time. White blood count has improved and trending down and is 5.9, sodium is 138, potassium is 3.7, current creatinine is 0.88. Vital signs have been stable and patient has been afebrile. Review of systems: Constitutional: No reports of fatigue, fever, or chills Cardiovascular: No reports of chest pain or palpitations Respiratory: No reports of shortness of breath or cough GI: Reports intermittent nausea, no reports of vomiting, or diarrhea, reports continued abdominal discomfort in the left lower and right quadrant that radiates around the back. : No reports of dysuria or retention Neurovascular: No reports of weakness or numbness All medications have been reviewed Objective - Vital Signs Vital signs: Vital Signs Temp 98.8 F 04/30/20 08:16 Pulse 67 04/30/20 08:16 Resp 18 04/30/20 08:16 BP 118/74 04/30/20 08:16 Pulse Ox 100 04/30/20 08:16 Intake & Output 04/29/20 04/30/20 04/30/20 18:59 06:59 18:59 Weight 65.771 kg 66.4 kg Other: Voiding Method Toilet # Voids 2 - Exam Gen: This is a 34-year-old female sitting up in bed awake, alert and oriented 3, well-developed, well-nourished. HEENT: Head is atraumatic, normocephalic. Pupils equal, round. Sclerae is anicteric. NECK: Supple. No JVD. No lymphadenopathy. No thyromegaly. LUNGS: Clear to auscultation. No wheezes or rhonchi. No intercostal retractions. HEART: Regular rate and rhythm. No murmur. ABDOMEN: Soft. Tenderness noted on palpation of the right and left lower quadrants. Bowel sounds are present. No masses. Right-sided flank tenderness also noted. EXTREMITIES: No pedal edema. No calf tenderness. NEUROLOGICAL: Patient is awake, alert and oriented x3. Cranial nerves 2 through 12 are grossly intact. - Labs CBC & Chem 7: 04/30/20 08:44 04/30/20 08:44 Labs: Abnormal Lab Results - Last 24 Hours (Table) 04/30/20 04/30/20 Range/Units 08:44 08:44 RBC 3.42 L (3.80-5.40) m/uL Hgb 8.5 L D (11.4-16.0) gm/dL Hct 26.1 L (34.0-46.0) % MCV 76.5 L (80.0-100.0) fL MCH 24.9 L (25.0-35.0) pg RDW 18.3 H (11.5-15.5) % Chloride 110 H (98-107) mmol/L BUN 6 L (7-17) mg/dL Calcium 8.2 L (8.4-10.2) mg/dL Assessment and Plan Assessment: Abdominal pain with nausea and vomiting Bowel thickening of the distal small bowel and colon suggestive of inflammatory bowel disease as noted on computed tomography scan Mild leukocytosis secondary to above, improved Possible colitis Chronic nicotine dependence with ongoing nicotine use Recent cholecystectomy History of iron deficiency anemia Marijuana use Full code Plan: Continue with current medications. Patient was started on IV Flagyl and Levaquin and will repeat a.m. labs. Patient is maintained on clear liquids and will continue at this time. GI is following. Instructed the patient to increase activity as tolerated. Further recommendations to follow. Possible discharge in 24-48 hours.
--- NOTE | 2020-04-30 22:40 | P.CONS ---
History of Present Illness - Reason for Consult Consult date: 04/30/20 Colitis, abdominal pain Requesting physician: Barron Noriega - Chief Complaint Abdominal pain, nausea and vomiting, diarrhea - History of Present Illness 34-year-old female with a medical history significant for iron deficiency anemia felt to be secondary to having menses, mitral valve regurgitation and prior cholecystectomy who presented to the hospital for a constellation of symptoms including abdominal pain, nausea and vomiting and diarrhea. The patient reports that she has been having symptoms of diarrhea since after her cholecystectomy in September 2019. She could have over 5 loose bowel movements daily. She reports developing episodes of cramping abdominal pain with nausea and vomiting prior to presentation. She denies any signs or symptoms of GI bleeding. She did have some episodes of dark-colored stool with only one bowel movement today and normal in color. No family history of Crohn disease or ulcerative colitis. No prior endoscopy. Computed tomography scan of the abdomen on presentation showed mild to moderate wall thickening throughout the transverse colon and portions of the left colon with mild wall thickening of the sigmoid and rectum as well as areas of small bowel thickening including the terminal ileum. Laboratory evaluation on presentation significant for WBC 5.9, hemoglobin 8.5, platelet count 216,000, total bilirubin 0.5, alkaline phosphatase 64, AST 18 and ALT 12 with CRP less than 5 and ESR 3. Review of Systems REVIEW OF SYSTEMS: CONSTITUTIONAL: Denies any fevers, chills, weight change or fatigue. CARDIOVASCULAR: Denies any chest pain, palpitations high or low blood pressures RESPIRATORY: Denies any shortness of breath, hemoptysis or cough. GENITOURINARY: No dysuria or hematuria, she does report heavy bleeding in association with her menstrual period. MUSCULOSKELETAL: No weakness reported. SKIN: Denies any new rashes or lesions, jaundice or pallor. PSYCHIATRIC: Denies any depression or anxiety. NEUROLOGY: Denies headache, denies any new focal deficits. EARS/NOSE/THROAT: No recent hearing change, congestion, nasal discharge or sore throat. EYES: No pain in eyes, discharge or change in vision. GASTROINTESTINAL: As per HPI. Past Medical History Past Medical History: No Reported History Additional Past Medical History / Comment(s): Irregular heavy frequent menses, sinus arrhythmia tachycardia, iron anemia History of Any Multi-Drug Resistant Organisms: None Reported Past Surgical History: Breast Surgery, Cholecystectomy Additional Past Surgical History / Comment(s): R breast benign tumor removed, D &C/benign uterine tumor, I&D L leg boil. Past Anesthesia/Blood Transfusion Reactions: Previous Problems w/ Anesthesia Additional Past Anesthesia/Blood Transfusion Reaction / Comm: states "takes longer to wake up" Smoking Status: Current every day smoker - Past Family History Mother Family Medical History: Thyroid Disorder Father Family Medical History: COPD Additional Family Medical History / Comment(s): pt states none Son(s) Family Medical History: Asthma Medications and Allergies Home Medications Medication Instructions Recorded Confirmed Type No Known Home Medications 04/29/20 04/29/20 History Allergies Allergy/AdvReac Type Severity Reaction Status Date / Time aspirin Allergy Anaphylaxis Verified 04/29/20 08:09 cephalexin [From Keflex] Allergy Anaphylaxis Verified 04/29/20 08:09 Physical Exam Vitals: Vital Signs Temp Pulse Pulse Resp BP BP Pulse Ox 04/30/20 12:10 98.8 F 49 L 16 123/76 100 04/30/20 08:16 98.8 F 67 18 118/74 100 04/30/20 02:00 98.2 F 64 16 114/67 97 04/29/20 20:00 98.5 F 64 18 120/71 99 04/29/20 19:38 97.6 F 62 18 122/68 98 04/29/20 16:21 97.9 F 56 L 16 123/78 99 04/29/20 15:11 98.1 F 62 16 132/68 99 Intake and Output 04/29/20 04/30/20 04/30/20 22:59 06:59 14:59 Other: Voiding Method Toilet # Voids 2 Weight 66.4 kg 66.4 kg On physical examination, patient appears comfortable in no apparent distress. HEAD: Normocephalic, atraumatic. EYES: No scleral icterus. No conjunctival injection. MOUTH: No lesions, tongue midline. NECK: Trachea midline, no gross abnormalities. CHEST: Clear to auscultation with no wheezing or rhonchi appreciated. HEART: Regular rate and rhythm. ABDOMEN: Soft, diffusely tender to palpation. Bowel sounds are positive. No organomegaly. No guarding or rigidity. EXTREMITIES: No pedal edema. SKIN: No rashes, no jaundice. NEUROLOGIC: Alert and oriented x3. No focal deficits. Results CBC & Chem 7: 04/30/20 08:44 04/30/20 08:44 Labs: Abnormal Lab Results - Last 24 Hours (Table) 04/30/20 04/30/20 Range/Units 08:44 08:44 RBC 3.42 L (3.80-5.40) m/uL Hgb 8.5 L D (11.4-16.0) gm/dL Hct 26.1 L (34.0-46.0) % MCV 76.5 L (80.0-100.0) fL MCH 24.9 L (25.0-35.0) pg RDW 18.3 H (11.5-15.5) % Chloride 110 H (98-107) mmol/L BUN 6 L (7-17) mg/dL Calcium 8.2 L (8.4-10.2) mg/dL CT scan - abdomen: report reviewed (Computed tomography scan of the abdomen on presentation showed mild to moderate wall thickening throughout the transverse colon and portions of the left colon with mild wall thickening of the sigmoid and rectum as well as areas of small bowel thickening including the terminal ileum. ) Assessment and Plan (1) Colitis Narrative/Plan: 34-year-old female presenting for symptoms of nausea and vomiting, abdominal pain and diarrhea. She has been suffering from episodes of loose stools since cholecystectomy in 09/2019. She presents for further evaluation after having episodes of diffuse cramping abdominal pain with episodes of nausea and vomiting. She denies any similar problems prior to her surgery. She denies any family history of inflammatory bowel disease or colon cancer. No prior endoscopic evaluation. Computed tomography scan of the abdomen on presentation showed mild to moderate wall thickening throughout the transverse colon and portions of the left colon with mild wall thickening of the sigmoid and rectum as well as areas of small bowel thickening including the terminal ileum. Unclear etiology, may be related to infectious enterocolitis, differential also includes inflammatory process with ischemia unlikely given the diffuse nature presentation, or other etiology. Current Visit: Yes Status: Acute Code(s): K52.9 - NONINFECTIVE GASTROENTERITIS AND COLITIS, UNSPECIFIED SNOMED Code(s): 07844404 (2) Diarrhea Current Visit: Yes Status: Acute Code(s): R19.7 - DIARRHEA, UNSPECIFIED SNOMED Code(s): 35333411 (3) Abdominal pain Current Visit: Yes Status: Acute Code(s): R10.9 - UNSPECIFIED ABDOMINAL PAIN SNOMED Code(s): 69297076 (4) Nausea & vomiting Current Visit: Yes Status: Acute Code(s): R11.2 - NAUSEA WITH VOMITING, UNSPECIFIED SNOMED Code(s): 99763449 Plan: Supportive care Okay for liquid diet at this time Metronidazole and levofloxacin added for treatment of colitis ESR and CRP ordered and normal Stool studies ordered Dicyclomine added for abdominal cramping Continue antiemetic therapy as needed for nausea Extensive discussion with the patient regarding laboratory and imaging findings, will treat for colitis at this time, if symptomatic improvement patient will need close follow-up with GI for scheduling of colonoscopy in the outpatient setting, however if patient does not improve symptomatically will plan for endoscopy prior to discharge Thank you for allowing us to participate in the care of the patient we will continue to follow
[2020-05-01] MEDS: MORPHINE SULFATE 2 MG/ML SYRINGE IV PRN (00:01)
[2020-05-01] MEDS: metroNIDAZOLE-NS PMX 500 MG in SALINE 1 100ML.BAG IVPB SCH ×4 (00:05→23:35)
[2020-05-01] MEDS ORDERED: HYDROmorphone 0.5 MG/0.5 ML SYRINGE IVP PRN (00:13)
[2020-05-01] MEDS: ONDANSETRON 4 MG/2 ML VIAL IVP PRN ×3 (03:19→21:21)
[2020-05-01] MEDS: LACTATED RINGERS 1,000 ML IV SCH ×4 (06:21→23:37)
[2020-05-01 07:55] LABS: Anisocytosis Slight; Basophils % (A) 0 %; Eosinophils % (A) 1 %; HGB 8.6 gm/dL (11.4-16.0); Lymphocytes # (A) 2.6 k/uL (1.0-4.8); Lymphocytes % (A) 46 %; MCH 25.3 pg (25.0-35.0); MCHC 33.1 g/dL (31.0-37.0); MCV 76.5 fL (80.0-100.0); Mean Platelet Volume 8.8; Microcytosis Slight; Monocytes # (A) 0.2 k/uL (0-1.0); Monocytes % (A) 4 %; Neutrophils # (A) 2.7 k/uL (1.3-7.7); Neutrophils % (A) 48 %; Platelet Count 222 k/uL (150-450); RBC 3.39 m/uL (3.80-5.40); RDW 18.2 % (11.5-15.5); WBC 5.7 k/uL (3.8-10.6)
[2020-05-01 07:59] LABS: Potassium 3.6 mmol/L (3.5-5.1)
[2020-05-01 08:00] LABS: African American GFR (CKD) >90 (>60 ml/min/1.73 sqM); Anion Gap 2 mmol/L; Blood Urea Nitrogen 4 mg/dL (7-17); Calcium 8.4 mg/dL (8.4-10.2); Carbon Dioxide 26 mmol/L (22-30); Chloride 111 mmol/L (98-107); Glucose 89 mg/dL (74-99); Non-African American GFR(CKD) >90 (>60 ml/min/1.73 sqM); Sodium 139 mmol/L (137-145)
[2020-05-01] MEDS: FAMOTIDINE 20 MG TAB PO SCH ×2 (08:39→19:57)
[2020-05-01] MEDS ORDERED: ACETAMINOPHEN TAB 325 MG TAB PO PRN (08:58)
[2020-05-01] MEDS ORDERED: ONDANSETRON 4 MG/2 ML VIAL IVP STA (08:59)
[2020-05-01 09:22] LABS: Polychromasia Present; Target Cells Present
[2020-05-01] MEDS: LEVOFLOXACIN 500MG-D5W PMX 500 MG in DEXTROSE/WATER 1 100ML.BAG IVPB SCH (10:31)
--- NOTE | 2020-05-01 11:46 | P.PN ---
Subjective Progress Note Date: 05/01/20 Principal diagnosis: Colitis, diarrhea, abdominal pain, nausea and vomiting Patient seen lying in bed reporting she feels somewhat better but still had 1 episode of vomiting this morning and still complaining of some abdominal pain. Objective - Vital Signs Vital signs: Vital Signs Temp 97.8 F 05/01/20 08:00 Pulse 62 05/01/20 08:00 Resp 18 05/01/20 08:00 BP 138/95 05/01/20 08:00 Pulse Ox 99 05/01/20 08:00 Intake & Output 04/30/20 05/01/20 05/01/20 18:59 06:59 18:59 Weight 66.4 kg Other: Voiding Method Toilet Toilet # Voids 1 2 - Exam On physical examination, patient appears comfortable in no apparent distress. HEAD: Normocephalic, atraumatic. EYES: No scleral icterus. No conjunctival injection. MOUTH: No lesions, tongue midline. NECK: Trachea midline, no gross abnormalities. ABDOMEN: Soft, mildly tender to palpation. Bowel sounds are positive. No organomegaly. No guarding or rigidity. EXTREMITIES: No pedal edema. SKIN: No rashes, no jaundice. NEUROLOGIC: Alert and oriented x3. No focal deficits. - Labs CBC & Chem 7: 05/01/20 07:22 05/01/20 07:22 Labs: Abnormal Lab Results - Last 24 Hours (Table) 05/01/20 05/01/20 Range/Units 07:22 07:22 RBC 3.39 L (3.80-5.40) m/uL Hgb 8.6 L (11.4-16.0) gm/dL Hct 26.0 L (34.0-46.0) % MCV 76.5 L (80.0-100.0) fL RDW 18.2 H (11.5-15.5) % Chloride 111 H (98-107) mmol/L BUN 4 L (7-17) mg/dL Assessment and Plan (1) Colitis Narrative/Plan: 34-year-old female presenting for symptoms of nausea and vomiting, abdominal pain and diarrhea. She has been suffering from episodes of loose stools since cholecystectomy in 09/2019. She presents for further evaluation after having episodes of diffuse cramping abdominal pain with episodes of nausea and vomiting. She denies any similar problems prior to her surgery. She denies any family history of inflammatory bowel disease or colon cancer. No prior endoscopic evaluation. Computed tomography scan of the abdomen on presentation showed mild to moderate wall thickening throughout the transverse colon and portions of the left colon with mild wall thickening of the sigmoid and rectum as well as areas of small bowel thickening including the terminal ileum. Unclear etiology, may be related to infectious enterocolitis, differential also includes inflammatory process with ischemia unlikely given the diffuse nature presentation, or other etiology. Current Visit: Yes Status: Acute Code(s): K52.9 - NONINFECTIVE GASTROENTERITIS AND COLITIS, UNSPECIFIED SNOMED Code(s): 47770774 (2) Diarrhea Current Visit: Yes Status: Acute Code(s): R19.7 - DIARRHEA, UNSPECIFIED SNOMED Code(s): 14519300 (3) Abdominal pain Current Visit: Yes Status: Acute Code(s): R10.9 - UNSPECIFIED ABDOMINAL PAIN SNOMED Code(s): 55847106 (4) Nausea & vomiting Current Visit: Yes Status: Acute Code(s): R11.2 - NAUSEA WITH VOMITING, UNSPECIFIED SNOMED Code(s): 41316241 Plan: Supportive care Okay for liquid diet at this time, nothing by mouth after midnight Metronidazole and levofloxacin antibiotic therapy ESR and CRP ordered and normal Stool studies with negative EIA testing for Clostridium difficile Dicyclomine added for abdominal cramping Continue antiemetic therapy as needed for nausea Extensive discussion with the patient regarding laboratory and imaging findings, plan is for EGD and colonoscopy tomorrow for further evaluation with all of the risks, benefits and possible complications of the procedures explained to the patient at length with all of her questions answered to her satisfaction Thank you for allowing us to participate in the care of the patient we will continue to follow
[2020-05-01] MEDS: HYDROcodone/APAP 5-325MG 1 EACH TAB PO PRN ×2 (13:29→19:55)
[2020-05-01] MEDS ORDERED: PEG 3350-NA SULF,BICARB,CL/KCL 4,000 ML BOTTLE PO ONE (15:00)
--- NOTE | 2020-05-01 15:21 | P.PN ---
Subjective 34-year-old patient who follows at the office of Dr. Sarah. Chronic stable medical conditions include mitral valve regurgitation, sinus arrhythmia and tachycardia. In September 2019 patient underwent cholecystectomy by Dr. Bhatt. Patient continues to have abdominal pain. Also was having increasing menstrual bleeding. Also been having intermittent nausea. She felt this was predominantly related to the gallbladder surgery. Patient has a pending appointment with tourist adviser. Patient is having increasing pain in the last 2 or 3 days. Central abdomen. Also nausea vomiting for 3-4 days. Unable to keep anything down. Prior to that she is able to keep food down. Not in the last 3-4 days. Denies any fever and chills. 04/30/2020 Patient seen and evaluated in follow-up continues to have abdominal discomfort although states heating and ice pack alternating have helped somewhat. Patient is also on IV pain medication and has recently received it. Seen and evaluated by GI and started on Levaquin and Flagyl for the possibility of severe colitis. Patient continues to have nausea and states the vomiting has subsided. Patient is on clear liquids and will continue at this time. Patient is tolerating although asking to advance diet. GI recommending continuing with clear liquids at this time. White blood count has improved and trending down and is 5.9, sodium is 138, potassium is 3.7, current creatinine is 0.88. Vital signs have been stable and patient has been afebrile. 05/01/2020 Patient is still having significant abdominal pain was having the diarrhea. Patient will undergo colonoscopy tomorrow. Patient was complaining of nausea probably secondary to metronidazole. Patient has issues with the taste which is again from antibiotics no evidence of coronavirus. Constitutional: Denied any fatigue denied any fever. Cardio vascular: denied any chest pain, palpitations Gastrointestinal as mentioned in HPI Pulmonary: Denied any shortness of breath cough Neurologic denied any new focal deficits All inpatient medications were reviewed and appropriate changes in these medications as dictated in the interval history and assessment and plan. Objective - Vital Signs Vital signs: Vital Signs Temp 98.1 F 05/01/20 12:30 Pulse 56 L 05/01/20 12:30 Resp 16 05/01/20 12:30 BP 146/96 05/01/20 12:30 Pulse Ox 99 05/01/20 12:30 Intake & Output 04/30/20 05/01/20 05/01/20 18:59 06:59 18:59 Intake Total 240 Balance 240 Weight 66.4 kg Intake: Oral 240 Other: Voiding Method Toilet Toilet # Voids 1 2 # Bowel Movements 2 - Exam PHYSICAL EXAMINATION: GENERAL: The patient is alert and oriented x3, not in any acute distress. Well developed, well nourished. HEENT: Pupils are round and equally reacting to light. EOMI. No scleral icterus. No conjunctival pallor. Normocephalic, atraumatic. No pharyngeal erythema. No thyromegaly. CARDIOVASCULAR: S1 and S2 present. No murmurs, rubs, or gallops. PULMONARY: Chest is clear to auscultation, no wheezing or crackles. ABDOMEN: Soft, and is predominantly in the right and left the lower quadrants MUSCULOSKELETAL: No joint swelling or deformity. EXTREMITIES: No cyanosis, clubbing, or pedal edema. NEUROLOGICAL: Gross neurological examination did not reveal any focal deficits. SKIN: No rashes. - Labs CBC & Chem 7: 05/01/20 07:22 05/01/20 07:22 Labs: Abnormal Lab Results - Last 24 Hours (Table) 05/01/20 05/01/20 Range/Units 07:22 07:22 RBC 3.39 L (3.80-5.40) m/uL Hgb 8.6 L (11.4-16.0) gm/dL Hct 26.0 L (34.0-46.0) % MCV 76.5 L (80.0-100.0) fL RDW 18.2 H (11.5-15.5) % Chloride 111 H (98-107) mmol/L BUN 4 L (7-17) mg/dL Assessment and Plan Plan: Colitis: Patient is being evaluated for infectious and inflammatory colitis patient will undergo colonoscopy tomorrow patient has bowel thickening in multiple areas and there is a concern for Crohn's colitis Mild leukocytosis secondary to above, improved Possible colitis Chronic nicotine dependence with ongoing nicotine use Recent cholecystectomy History of iron deficiency anemia Marijuana use Full code Plan: Continue with current medications. Patient was started on IV Flagyl and Levaquin and will repeat a.m. labs. Patient is maintained on clear liquids and will continue at this time. Patient will undergo colonoscopy tomorrow
[2020-05-01] MEDS ORDERED: bisacodyL 5 MG TABLET.DR PO ONE (17:00)
[2020-05-01] MEDS ORDERED: MORPHINE SULFATE 2 MG/ML SYRINGE IVP STA (19:00)
[2020-05-01] MEDS ORDERED: SIMETHICONE 80 MG CHEWABLE PO PRN (23:21)
[2020-05-01] MEDS: MORPHINE SULFATE 4 MG/ML SYRINGE IVP PRN (23:40)
[2020-05-02] MEDS: ONDANSETRON 4 MG/2 ML VIAL IVP PRN ×2 (03:10→12:40)
[2020-05-02] MEDS: LACTATED RINGERS 1,000 ML IV SCH ×2 (03:13→12:58)
[2020-05-02] MEDS: MORPHINE SULFATE 4 MG/ML SYRINGE IVP PRN (07:43)
[2020-05-02] MEDS: metroNIDAZOLE-NS PMX 500 MG in SALINE 1 100ML.BAG IVPB SCH (07:44)
[2020-05-02 07:51] VITALS: RESP 18; TEMP 98.5
[2020-05-02] MEDS ORDERED: PROPOFOL 10 MG/ML 20 ML VIAL IV ONE (08:46)
[2020-05-02] MEDS ORDERED: IV FLUID CONTINUATION 1,000 ML IV ONE (08:47)
[2020-05-02] MEDS ORDERED: LACTATED RINGERS 1,000 ML IV ONE (09:01)
--- NOTE | 2020-05-02 09:27 | P.PCN ---
Date of Procedure: 05/02/20 Description of Procedure: Brief history: 34-year-old female with a medical history significant for iron deficiency anemia felt to be secondary to having menses, mitral valve regurgitation and prior cholecystectomy who presented to the hospital for a constellation of symptoms including abdominal pain, nausea and vomiting and diarrhea. The patient reports that she has been having symptoms of diarrhea since after her cholecystectomy in September 2019. She could have over 5 loose bowel movements daily. She reports developing episodes of cramping abdominal pain with nausea and vomiting prior to presentation. She denies any signs or symptoms of GI bleeding. She did have some episodes of dark-colored stool with only one bowel movement today and normal in color. No family history of Crohn disease or ulcerative colitis. No prior endoscopy. Computed tomography scan of the abdomen on presentation showed mild to moderate wall thickening throughout the transverse colon and portions of the left colon with mild wall thickening of the sigmoid and rectum as well as areas of small bowel thickening including the terminal ileum. Laboratory evaluation on presentation significant for WBC 5.9, hemoglobin 8.5, platelet count 216,000, total bilirubin 0.5, alkaline phosphatase 64, AST 18 and ALT 12 with CRP less than 5 and ESR 3. Procedure performed: Esophagogastroduodenoscopy with biopsy Colonoscopy with biopsy Estimated blood loss: Minimal. Preoperative diagnosis: Intractable nausea and vomiting, colitis, abnormal computed tomography scan abdomen and pelvis Anesthesia: MAC Procedure: After informed consent was obtained from the patient was brought into the endoscopy unit and IV sedation was administered by anesthesia under continuous monitoring. Initially upper endoscopy was done. The Olympus GF 190 video endoscope was inserted into the mouth and esophagus intubated without any difficulty and was gradually advanced into the stomach and duodenum and carefully examined. The bulb and second part of the duodenum appeared normal, with biopsies taken. The scope was then withdrawn into the stomach adequately insufflated with air and upon careful examination the antrum and body, cardia and fundus appeared normal, except for some mild scattered erythema in the an trum and body suggestive of mild gastritis with biopsies taken. The scope was then withdrawn into the esophagus. The GE junction was located at 39 cm to the incisors and was biopsied. It appeared regular with no erythema erosions or ulcerations. Rest of the esophagus appeared normal. Patient tolerated the procedure well. At this time the patient continued to remain sedation. Initial digital rectal examination was normal. Olympus CF 190 video colonoscope was then inserted into the rectum and gradually advanced to the cecum without any difficulty. Careful examination was performed as the scope was gradually being withdrawn. The prep was excellent. The cecum, ascending colon, transverse colon, descending colon, sigmoid colon and rectum appeared normal, with random biopsies taken of the right and left colon as well as a normal-appearing terminal ileum. Retroflexion was performed in the rectum and no lesions were noted, low-grade internal hemorrhoids seen. Patient tolerated the procedure well. Impression: 1. Mild gastritis. Biopsies of the duodenum, antrum and body and GE junction. 2. Normal-appearing colon from rectum to cecum with normal-appearing terminal ileum. Biopsies of the terminal ileum, right colon and left colon in the setting of abnormal computed tomography scan with findings of colitis and ileitis. Recommendations: Findings of this examination were discussed with the patient. Okay for diet as tolerated. Continue symptomatic management, and completion of course of antibiotic therapy for possible bacterial or viral enteritis/colitis. Discussion with the patient about symptoms of diarrhea in the postcholecystectomy setting and can consider initiation of cholestyramine if diarrhea persists. Otherwise, patient okay for discharge from GI when otherwise medically stable. Recommend follow-up in the GI clinic in 2-3 weeks to go over biopsy results.
[2020-05-02] MEDS: LEVOFLOXACIN 500MG-D5W PMX 500 MG in DEXTROSE/WATER 1 100ML.BAG IVPB SCH (09:33)
[2020-05-02] MEDS: FAMOTIDINE 20 MG TAB PO SCH (09:33)
[2020-05-02 11:19] VITALS: BP 130/86; PULSE 55
--- NOTE | 2020-05-02 12:18 | P.DS ---
Providers Date of admission: 04/29/20 10:49 Attending physician: Barron Noriega Consults: 04/29/20 10:50 Consult Physician Urgent Consulting Provider: Toney Mariee Consult Reason/Comments: Colitis, rule out Crohn's Do you want consulting provider notified?: Yes Primary care physician: Hernandez Sarah [facility] Course: 34-year-old patient who follows at the office of Dr. Sarah. Chronic stable medical conditions include mitral valve regurgitation, sinus arrhythmia and tachycardia. In September 2019 patient underwent cholecystectomy by Dr. Bhatt. Patient continues to have abdominal pain. Also was having increasing menstrual bleeding. Also been having intermittent nausea. She felt this was predominantly related to the gallbladder surgery. 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 Patient is having increasing pain in the last 2 or 3 days. Central abdomen. Also nausea vomiting for 3-4 days. Unable to keep anything down. Prior to that she is able to keep food down. Not in the last 3-4 days. Denies any fever and chills. 04/30/2020 Patient seen and evaluated in follow-up continues to have abdominal discomfort although states heating and ice pack alternating have helped somewhat. Patient is also on IV pain medication and has recently received it. Seen and evaluated by GI and started on Levaquin and Flagyl for the possibility of severe colitis. Patient continues to have nausea and states the vomiting has subsided. Patient is on clear liquids and will continue at this time. Patient is tolerating although asking to advance diet. GI recommending continuing with clear liquids at this time. White blood count has improved and trending down and is 5.9, sodium is 138, potassium is 3.7, current creatinine is 0.88. Vital signs have been stable and patient has been afebrile. 05/01/2020 Patient is still having significant abdominal pain was having the diarrhea. Patient will undergo colonoscopy tomorrow. Patient was complaining of nausea probably secondary to metronidazole. Patient has issues with the taste which is again from antibiotics no evidence of coronavirus. 05/02/2020 Patient had the colonoscopy which showed esophagitis and possible mild colitis patient most probably had a viral enterocolitis. Discussed with gastroneurology will prescribe her 4 more days of levofloxacin and the metronidazole completing 7 day of therapy. Patient abdominal pain is better. PHYSICAL EXAMINATION: GENERAL: The patient is alert and oriented x3, not in any acute distress. Well developed, well nourished. HEENT: Pupils are round and equally reacting to light. EOMI. No scleral icterus. No conjunctival pallor. Normocephalic, atraumatic. No pharyngeal erythema. No thyromegaly. CARDIOVASCULAR: S1 and S2 present. No murmurs, rubs, or gallops. PULMONARY: Chest is clear to auscultation, no wheezing or crackles. ABDOMEN: Soft, tenderness improved MUSCULOSKELETAL: No joint swelling or deformity. EXTREMITIES: No cyanosis, clubbing, or pedal edema. NEUROLOGICAL: Gross neurological examination did not reveal any focal deficits. SKIN: No rashes. Assessment and Plan Plan: Colitis: Patient is being evaluated for infectious and inflammatory colitis patient didn't have any evidence of Crohn's colitis although biopsies were obtained. Patient is status post colonoscopy and upper GI endoscopythe patient may have viral enterocolitis as discussed Mild leukocytosis secondary to above, improved Chronic nicotine dependence with ongoing nicotine use Recent cholecystectomy History of iron deficiency anemia Marijuana use Patient Condition at Discharge: Fair Plan - Discharge Summary Discharge Rx Participant: No New Discharge Prescriptions: New Dicyclomine [Bentyl] 20 mg PO QID PRN #30 tab PRN Reason: Dyspepsia metroNIDAZOLE [Flagyl] 500 mg PO Q8HR #12 tab Levofloxacin [Levaquin] 500 mg PO DAILY 4 Days #1 tab Famotidine [Pepcid] 20 mg PO BID #20 tab Cholestyramine (with Sugar) [Questran] 4 gm PO TID PRN #60 packet PRN Reason: Diarrhea traMADol HCL [Ultram] 50 mg PO Q4HR PRN 5 Days #30 tab PRN Reason: Pain Discharge Medication List Cholestyramine (with Sugar) [Questran] 4 gm PO TID PRN #60 packet 05/02/20 [Rx] Dicyclomine [Bentyl] 20 mg PO QID PRN #30 tab 05/02/20 [Rx] Famotidine [Pepcid] 20 mg PO BID #20 tab 05/02/20 [Rx] Levofloxacin [Levaquin] 500 mg PO DAILY 4 Days #1 tab 05/02/20 [Rx] metroNIDAZOLE [Flagyl] 500 mg PO Q8HR #12 tab 05/02/20 [Rx] traMADol HCL [Ultram] 50 mg PO Q4HR PRN 5 Days #30 tab 05/02/20 [Rx] Follow up Appointment(s)/Referral(s): Hernandez Sarah DO [Primary Care Provider] - 3 Days Toney Mariee MD [STAFF PHYSICIAN] - 2 Weeks Discharge Disposition: HOME SELF-CARE
[2020-05-02] MEDS: HYDROcodone/APAP 5-325MG 1 EACH TAB PO PRN (12:43)
== END 2020-05-02 14:11 | disposition home or self-care (01) ==
LOC: EC 07:18 → 4SSUR 10:49 → INTOOBSV 10:49 → 6PED 20:01 → UNDODISIN 05-02 14:11
PROVIDERS: ADMIT Hospitalist; ATTEND Hospitalist
DX: D72.820 Lymphocytosis (symptomatic) (principal); K21.9 Gastro-esophageal reflux disease without esophagitis; Z90.49 Acquired absence of other specified parts of digestive tract; N92.1 Excessive and frequent menstruation with irregular cycle; I34.0 Nonrheumatic mitral (valve) insufficiency; Z98.890 Other specified postprocedural states; F41.9 Anxiety disorder, unspecified; F32.9 Major depressive disorder, single episode, unspecified; F17.290 Nicotine dependence, other tobacco product, uncomplicated; K31.9 Disease of stomach and duodenum, unspecified; Z83.49 Family history of other endocrine, nutritional and metabolic diseases; Z82.5 Family history of asthma and other chronic lower respiratory diseases; Z88.6 Allergy status to analgesic agent; Z88.1 Allergy status to other antibiotic agents; Z86.2 Personal history of diseases of the blood and blood-forming organs and certain disorders involving the immune mechanism; B00.9 Herpesviral infection, unspecified
CPT/HCPCS: 96361 ×4; 96365; 96366 ×2; 96375 ×2; 96376 ×3; 99285; 36415; 88305; 80053; 80048 ×2; 85652; 82150; 83690; 85025 ×3; 86140; 82272; 81001; 81025; 87324; 74177; 45380; 43239; G0378 ×5; J2270 ×6; J1200; J2765; J2405 ×4; J1956 ×3; J2704; J1170; Q9967; 96374

== ENCOUNTER 2020-06-22 23:14 | Emergency (ER) | payer OTHER ==
[2020-06-22 23:31] VITALS: RESP 16; TEMP 97.9
[2020-06-22] MEDS ORDERED: SODIUM CHLORIDE 0.9% 1,000 ML IV STA (23:40)
[2020-06-22] MEDS ORDERED: HYDROmorphone 0.5 MG/0.5 ML SYRINGE IVP STA (23:45)
[2020-06-23 00:17] LABS: Anisocytosis Slight; Basophils % (A) 0 %; Eosinophils # (A) 0.2 k/uL (0-0.7); Eosinophils % (A) 2 %; HGB 9.8 gm/dL (11.4-16.0); Lymphocytes # (A) 0.7 k/uL (1.0-4.8); Lymphocytes % (A) 5 %; MCH 24.7 pg (25.0-35.0); MCHC 33.8 g/dL (31.0-37.0); MCV 73.1 fL (80.0-100.0); Microcytosis Moderate; Monocytes # (A) 0.2 k/uL (0-1.0); Monocytes % (A) 1 %; Neutrophils # (A) 12.1 k/uL (1.3-7.7); Neutrophils % (A) 91 %; Platelet Count 248 k/uL (150-450); RBC 3.97 m/uL (3.80-5.40); RDW 18.6 % (11.5-15.5); WBC 13.3 k/uL (3.8-10.6)
--- NOTE | 2020-06-23 00:21 | XR ---
EXAM: XR Abdomen, 2 Views CLINICAL HISTORY: ITS.REASON XR Reason: pain TECHNIQUE: Frontal view of the abdomen/pelvis with upright view of the abdomen. COMPARISON: No relevant prior studies available. FINDINGS: Intraperitoneal space: No free air. Gastrointestinal tract: Unremarkable. Bones/joints: Unremarkable. Vasculature: Suspected phlebolith within the right hemipelvis. IMPRESSION: No acute findings in the abdomen or pelvis.
[2020-06-23 00:27] LABS: ALT 16 U/L (4-34); AST 26 U/L (14-36); African American GFR (CKD) >90 (>60 ml/min/1.73 sqM); Alkaline Phosphatase 66 U/L (38-126); Amylase 86 U/L (30-110); Anion Gap 10 mmol/L; Blood Urea Nitrogen 9 mg/dL (7-17); Calcium 8.8 mg/dL (8.4-10.2); Carbon Dioxide 17 mmol/L (22-30); Chloride 109 mmol/L (98-107); Glucose 142 mg/dL (74-99); Lipase 27 U/L (23-300); Non-African American GFR(CKD) >90 (>60 ml/min/1.73 sqM); Potassium 3.8 mmol/L (3.5-5.1); Sodium 136 mmol/L (137-145); Total Bilirubin 1.1 mg/dL (0.2-1.3); Total Protein 6.9 g/dL (6.3-8.2)
[2020-06-23] MEDS ORDERED: SODIUM CHLORIDE 0.9% 1,000 ML IV ONE (00:42)
--- NOTE | 2020-06-23 00:46 | ED ---
Abdominal Pain HPI - General Chief Complaint: Abdominal Pain Stated Complaint: Abd Pain Time Seen by Provider: 06/22/20 23:20 Source: patient, EMS, RN notes reviewed Mode of arrival: EMS Limitations: no limitations - History of Present Illness Initial Comments: 35-year-old female presents emergency Department chief complaint abdominal pain. Patient's been having issues for several months. Patient was admitted and found has some colitis. Patient had EGD with negative biopsies. Patient states that she was told she was cleared by GI. Patient states she is scheduled see GI physician out of [place]. Patient states pain increased today states that she cannot keep anything down so she presents to emergency from. Patient did receive fentanyl by EMS. Patient reports mild dysuria as a vaginal bleeding or vaginal discharge diarrhea constipation no fever no chest pain or shortness breath. - Related Data Previous Rx's Medication Instructions Recorded Cholestyramine (with Sugar) 4 gm PO TID PRN #60 packet 05/02/20 [Questran] Dicyclomine [Bentyl] 20 mg PO QID PRN #30 tab 05/02/20 Famotidine [Pepcid] 20 mg PO BID #20 tab 05/02/20 Levofloxacin [Levaquin] 500 mg PO DAILY 4 Days #1 tab 05/02/20 metroNIDAZOLE [Flagyl] 500 mg PO Q8HR #12 tab 05/02/20 traMADol HCL [Ultram] 50 mg PO Q4HR PRN 5 Days #30 tab 05/02/20 Dicyclomine [Bentyl] 20 mg PO TID #30 tablet 06/23/20 Ondansetron Odt [Zofran Odt] 4 mg PO Q8HR PRN #14 tab 06/23/20 Allergies Allergy/AdvReac Type Severity Reaction Status Date / Time aspirin Allergy Anaphylaxis Verified 06/22/20 23:31 cephalexin [From Keflex] Allergy Anaphylaxis Verified 06/22/20 23:31 Review of Systems ROS Statement: Those systems with pertinent positive or pertinent negative responses have been documented in the HPI. ROS Other: All systems not noted in ROS Statement are negative. Past Medical History Past Medical History: No Reported History Additional Past Medical History / Comment(s): Irregular heavy frequent menses, sinus arrhythmia tachycardia, iron anemia History of Any Multi-Drug Resistant Organisms: None Reported Past Surgical History: Breast Surgery, Cholecystectomy Additional Past Surgical History / Comment(s): R breast benign tumor removed, D&C/benign uterine tumor, I&D L leg boil. Past Anesthesia/Blood Transfusion Reactions: Previous Problems w/ Anesthesia Additional Past Anesthesia/Blood Transfusion Reaction / Comment(s): states "takes longer to wake up" Past Psychological History: Anxiety, Depression Smoking Status: Current every day smoker Past Alcohol Use History: Occasional Past Drug Use History: None Reported - Past Family History Mother Family Medical History: Thyroid Disorder Father Family Medical History: COPD Additional Family Medical History / Comment(s): pt states none Son(s) Family Medical History: Asthma General Exam Limitations: no limitations General appearance: alert, in no apparent distress Head exam: Present: atraumatic, normocephalic, normal inspection Eye exam: Present: normal appearance, PERRL, EOMI. Absent: scleral icterus, con junctival injection, periorbital swelling ENT exam: Present: normal exam, normal oropharynx, mucous membranes moist Respiratory exam: Present: normal lung sounds bilaterally. Absent: respiratory distress, wheezes, rales, rhonchi, stridor Cardiovascular Exam: Present: regular rate, normal rhythm, normal heart sounds. Absent: systolic murmur, diastolic murmur, rubs, gallop, clicks GI/Abdominal exam: Present: soft, tenderness (Diffuse), normal bowel sounds. Absent: distended, guarding, rebound, rigid Back exam: Present: CVA tenderness (L). Absent: CVA tenderness (R) Neurological exam: Present: alert, oriented X3 Skin exam: Present: warm, dry, intact, normal color. Absent: rash Course Vital Signs 06/22/20 06/23/20 23:29 00:31 Temperature 97.9 F Pulse Rate 78 77 Respiratory 16 16 Rate Blood Pressure 142/62 103/77 O2 Sat by Pulse 98 98 Oximetry Medical Decision Making - Medical Decision Making 35-year-old female presented for nausea vomiting abdominal pain. Patient's been having ongoing GI issues. I observed him moderate dehydration. Patient was given 2 L of fluids feels greatly improved. Patient states that she is comfortable with discharge and follow clear GI appointment. Patient states she'll return if symptoms worsen. - Lab Data Result diagrams: 06/23/20 00:04 06/23/20 00:04 Lab Results 06/23/20 06/23/20 06/23/20 Range/Units 00:04 00:04 00:04 WBC 13.3 H (3.8-10.6) k/uL RBC 3.97 (3.80-5.40) m/uL Hgb 9.8 L (11.4-16.0) gm/dL Hct 29.0 L (34.0-46.0) % MCV 73.1 L (80.0-100.0) fL MCH 24.7 L (25.0-35.0) pg MCHC 33.8 (31.0-37.0) g/dL RDW 18.6 H (11.5-15.5) % Plt Count 248 (150-450) k/uL MPV 8.0 Neutrophils % 91 % Lymphocytes % 5 % Monocytes % 1 % Eosinophils % 2 % Basophils % 0 % Neutrophils # 12.1 H (1.3-7.7) k/uL Lymphocytes # 0.7 L (1.0-4.8) k/uL Monocytes # 0.2 (0-1.0) k/uL Eosinophils # 0.2 (0-0.7) k/uL Basophils # 0.0 (0-0.2) k/uL Anisocytosis Slight Microcytosis Moderate Sodium 136 L (137-145) mmol/L Potassium 3.8 (3.5-5.1) mmol/L Chloride 109 H (98-107) mmol/L Carbon Dioxide 17 L (22-30) mmol/L Anion Gap 10 mmol/L BUN 9 (7-17) mg/dL Creatinine 0.63 (0.52-1.04) mg/dL Est GFR (CKD-EPI)AfAm >90 (>60 ml/min/1.73 sqM) Est GFR (CKD-EPI)NonAf >90 (>60 ml/min/1.73 sqM) Glucose 142 H (74-99) mg/dL Plasma Lactic Acid Ranjeet 1.3 (0.7-2.0) mmol/L Calcium 8.8 (8.4-10.2) mg/dL Total Bilirubin 1.1 (0.2-1.3) mg/dL AST 26 (14-36) U/L ALT 16 (4-34) U/L Alkaline Phosphatase 66 (38-126) U/L Total Protein 6.9 (6.3-8.2) g/dL Albumin 4.0 (3.5-5.0) g/dL Amylase 86 (30-110) U/L Lipase 27 (23-300) U/L Urine Color Urine Appearance (Clear) Urine pH (5.0-8.0) Ur Specific [place] (1.001-1.035) Urine Protein (Negative) Urine Glucose (UA) (Negative) Urine Ketones (Negative) Urine Blood (Negative) Urine Nitrite (Negative) Urine Bilirubin (Negative) Urine Urobilinogen (<2.0) mg/dL Ur Leukocyte Esterase (Negative) Urine RBC (0-5) /hpf Urine WBC (0-5) /hpf Ur Squamous Epith Cells (0-4) /hpf Urine Mucus (None) /hpf Urine HCG, Qual (Not Detectd) 06/23/20 06/23/20 Range/Units 00:25 00:25 WBC (3.8-10.6) k/uL RBC (3.80-5.40) m/uL Hgb (11.4-16.0) gm/dL Hct (34.0-46.0) % MCV (80.0-100.0) fL MCH (25.0-35.0) pg MCHC (31.0-37.0) g/dL RDW (11.5-15.5) % Plt Count (150-450) k/uL MPV Neutrophils % % Lymphocytes % % Monocytes % % Eosinophils % % Basophils % % Neutrophils # (1.3-7.7) k/uL Lymphocytes # (1.0-4.8) k/uL Monocytes # (0-1.0) k/uL Eosinophils # (0-0.7) k/uL Basophils # (0-0.2) k/uL Anisocytosis Microcytosis Sodium (137-145) mmol/L Potassium (3.5-5.1) mmol/L Chloride (98-107) mmol/L Carbon Dioxide (22-30) mmol/L Anion Gap mmol/L BUN (7-17) mg/dL Creatinine (0.52-1.04) mg/dL Est GFR (CKD-EPI)AfAm (>60 ml/min/1.73 sqM) Est GFR (CKD-EPI)NonAf (>60 ml/min/1.73 sqM) Glucose (74-99) mg/dL Plasma Lactic Acid Ranjeet (0.7-2.0) mmol/L Calcium (8.4-10.2) mg/dL Total Bilirubin (0.2-1.3) mg/dL AST (14-36) U/L ALT (4-34) U/L Alkaline Phosphatase (38-126) U/L Total Protein (6.3-8.2) g/dL Albumin (3.5-5.0) g/dL Amylase (30-110) U/L Lipase (23-300) U/L Urine Color Light Yellow Urine Appearance Clear (Clear) Urine pH 7.0 (5.0-8.0) Ur Specific [place] 1.019 (1.001-1.035) Urine Protein Negative (Negative) Urine Glucose (UA) Negative (Negative) Urine Ketones 4+ H (Negative) Urine Blood Trace H (Negative) Urine Nitrite Negative (Negative) Urine Bilirubin Negative (Negative) Urine Urobilinogen <2.0 (<2.0) mg/dL Ur Leukocyte Esterase Negative (Negative) Urine RBC 1 (0-5) /hpf Urine WBC 2 (0-5) /hpf Ur Squamous Epith Cells 1 (0-4) /hpf Urine Mucus Rare H (None) /hpf Urine HCG, Qual Not Detected (Not Detectd) Disposition Clinical Impression: Abdominal pain, Nausea & vomiting, Dehydration Disposition: HOME SELF-CARE Condition: Stable Instructions (If sedation given, give patient instructions): Abdominal Pain (ED) Additional Instructions: Please return to the Emergency Department if symptoms worsen or any other concerns. Prescriptions: Dicyclomine [Bentyl] 20 mg PO TID #30 tablet Ondansetron Odt [Zofran Odt] 4 mg PO Q8HR PRN #14 tab PRN Reason: Nausea Is patient prescribed a controlled substance at d/c from ED?: No Referrals: Hernandez Sarah DO [Primary Care Provider] - 1-2 days Time of Disposition: 01:18
[2020-06-23 01:00] LABS: Appearance,Urine Clear (Clear); Bilirubin,Urine Negative (Negative); Blood,Urine Trace (Negative); Color,Urine Light Yellow; Glucose,Urine (UA) Negative (Negative); Ketones,Urine 4+ (Negative); Leukocyte Esterase,Urine Negative (Negative); Mucus,Urine Rare /hpf; Nitrite,Urine Negative (Negative); Protein,Urine Negative (Negative); RBC,Urine 1 /hpf (0-5); Specific Gravity,Urine 1.019 (1.001-1.035); Squamous Epithelial Cell,Urine 1 /hpf (0-4); Urobilinogen,Urine <2.0 mg/dL (<2.0); WBC,Urine 2 /hpf (0-5)
[2020-06-23] MEDS ORDERED: ACET/COD 300 MG/30 MG STARTER PACK 6 TAB BTL PO STA (01:18)
[2020-06-23] MEDS ORDERED: ONDANSETRON 4 MG ODT STARTER PACK 2 TAB BTL PO STA (01:18)
[2020-06-23 01:41] VITALS: BP 114/80; PULSE 79
== END 2020-06-23 01:41 | disposition home or self-care (01) ==
LOC: EC 23:14
DX: R10.9 Unspecified abdominal pain (principal); R11.2 Nausea with vomiting, unspecified; E86.0 Dehydration; F17.200 Nicotine dependence, unspecified, uncomplicated; Z88.1 Allergy status to other antibiotic agents; Z88.6 Allergy status to analgesic agent; Z90.49 Acquired absence of other specified parts of digestive tract
CPT/HCPCS: 36415; 80053; 82150; 83605; 83690; 85025; 81001; 81025; 74018; 99284; 96374; 96361 ×2; S0119; J1170

== ENCOUNTER 2020-09-18 18:23 | Emergency (ER) | payer OTHER ==
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
[2020-09-18] MEDS ORDERED: MORPHINE SULFATE 4 MG/ML SYRINGE IM STA (19:25)
[2020-09-18] MEDS ORDERED: ONDANSETRON ODT 4 MG TAB PO STA (19:26)
[2020-09-18 20:22] VITALS: RESP 20
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
--- NOTE | 2020-09-18 20:54 | XR ---
EXAMINATION TYPE: XR chest 1V portable DATE OF EXAM: 09/18/2020 COMPARISON: 10/06/2019 HISTORY: Chest pain TECHNIQUE: Single view FINDINGS: Heart and mediastinum are normal. Lungs are clear. Diaphragm is normal. Bony thorax is inta ct. IMPRESSION: Normal chest. No change.
[2020-09-18] MEDS ORDERED: ACETAMINOPHEN TAB 500 MG TAB PO STA (21:36)
[2020-09-18 22:35] VITALS: BP 129/92; PULSE 82; TEMP 98.6
== END 2020-09-18 22:35 | disposition home or self-care (01) ==
LOC: EC 18:23
DX: S16.1XXA Strain of muscle, fascia and tendon at neck level, initial encounter (principal); S00.03XA Contusion of scalp, initial encounter; F32.9 Major depressive disorder, single episode, unspecified; F17.200 Nicotine dependence, unspecified, uncomplicated; F12.90 Cannabis use, unspecified, uncomplicated; V29.9XXA Motorcycle rider (driver) (passenger) injured in unspecified traffic accident, initial encounter
CPT/HCPCS: 73030; 71045; 72125; 70450; 99284; 96372; J2270

== ENCOUNTER 2021-03-17 15:59 | Observation (INO) | payer OTHER ==
--- NOTE | 2021-03-17 16:56 | ED ---
General Adult HPI - General Chief complaint: Weakness Stated complaint: possible TIA Time Seen by Provider: 03/17/21 16:37 Source: patient, RN notes reviewed Mode of arrival: ambulatory Limitations: no limitations - History of Present Illness Initial comments: Patient is a pleasant 35-year-old female presenting to the emergency department with concerns for left arm heaviness. Onset of symptoms was around 20 minutes ago while driving. Symptoms are near resolved at this time. Patient did have a headache on the top of her head. Patient also had some discomfort in her chest. Patient had tingling of her left arm. Patient felt her left arm was heavy and she had difficulty lifting it. No leg involvement. Patient also had some paresthesias left side of her face. No history of similar symptoms previously. Patient is concerned that she did have COVID-19 vaccination 2 weeks ago. - Related Data Home Medications Medication Instructions Recorded Confirmed Ferrous Sulfate [Feosol] 325 mg PO DAILY 03/17/21 03/17/21 HYDROcodone/APAP 10-325MG [[place] 1 tab PO Q4H PRN 03/17/21 03/17/21 10-325] Leuprolide Acetate [Lupron Depot] 11.25 mg IM Q90D 03/17/21 03/17/21 Allergies Allergy/AdvReac Type Severity Reaction Status Date / Time aspirin Allergy Anaphylaxis Verified 03/17/21 17:46 cephalexin [From Keflex] Allergy Anaphylaxis Verified 03/17/21 17:46 hydromorphone [From Dilaudid] Allergy Anaphylaxis Verified 03/17/21 17:46 Iodinated Contrast Media Allergy Anaphylaxis Verified 03/17/21 17:46 Review of Systems ROS Statement: Those systems with pertinent positive or pertinent negative responses have been documented in the HPI. ROS Other: All systems not noted in ROS Statement are negative. Constitutional: Denies: fever Eyes: Denies: eye pain ENT: Denies: ear pain Respiratory: Denies: cough Cardiovascular: Reports: as per HPI, chest pain Gastrointestinal: Denies: abdominal pain Genitourinary: Denies: dysuria Musculoskeletal: Denies: back pain Skin: Denies: rash Neurological: Reports: as per HPI, headache, weakness, paresthesias Past Medical History Past Medical History: No Reported History Additional Past Medical History / Comment(s): Irregular heavy frequent menses, sinus arrhythmia tachycardia, iron anemia History of Any Multi-Drug Resistant Organisms: None Reported Past Surgical History: Breast Surgery, Cholecystectomy Additional Past Surgical History / Comment(s): R breast benign tumor removed, D&C/benign uterine tumor, I&D L leg boil. Past Anesthesia/Blood Transfusion Reactions: Previous Problems w/ Anesthesia Additional Past Anesthesia/Blood Transfusion Reaction / Comment(s): states "takes longer to wake up" Past Psychological History: Anxiety, Depression Smoking Status: Former smoker Past Alcohol Use History: Occasional Past Drug Use History: Marijuana - Past Family History Mother Family Medical History: Thyroid Disorder Father Family Medical History: COPD Additional Family Medical History / Comment(s): pt states none Son(s) Family Medical History: Asthma General Exam Limitations: no limitations General appearance: alert, in no apparent distress Head exam: Present: normocephalic Eye exam: Present: normal appearance, PERRL, EOMI. Absent: nystagmus ENT exam: Present: normal oropharynx Neck exam: Present: normal inspection Respiratory exam: Present: normal lung sounds bilaterally Cardiovascular Exam: Present: regular rate, normal rhythm Expanded Peripheral pulses: 2+: Radial (R), Radial (L), Posterior Tibialis (R), Posterior Tibialis (L) GI/Abdominal exam: Present: soft. Absent: tenderness Extremities exam: Present: normal inspection. Absent: pedal edema, calf ten derness Neurological exam: Present: alert, CN II-XII intact. Absent: motor sensory deficit Expanded Neurological exam: Present: protecting the airway Speech: Present: fluid speech Cranial nerves: EOM's Intact: Normal, Facial Sensation: Normal Sensory exam: Upper Extremity Light Touch: Normal, Lower Extremity Light Touch: Normal Motor strength exam: RUE: 5, LUE: 5, RLE: 5, LLE: 5 Eye Response: (4) open spontaneously Motor Response: (6) obeys commands Verbal Response: (5) oriented Psychiatric exam: Present: normal affect, normal mood Skin exam: Present: normal color Course Vital Signs 03/17/21 03/17/21 16:08 18:45 Temperature 97.8 F Pulse Rate 79 73 Respiratory 20 18 Rate Blood Pressure 137/95 142/108 O2 Sat by Pulse 99 100 Oximetry EKG Findings - EKG Comments: EKG Findings:: Normal sinus rhythm with a rate of 75. WI 144. QRS 86. QT 394. QTC 439. Normal axis. Normal QRS. No acute ST change. Medical Decision Making - Medical Decision Making Patient reevaluated and wrist and comfortably in bed, symptom-free. Patient updated on results and plan. With patient's history of reported left arm weakness does bring up concern for possible TIA. This also could be related to atypical headache. Patient will benefit from neurology evaluation. Case discussed with practitioner Cristel, covering for Dr. Wagner, who will admit covering for Dr. Sarah. - Lab Data Result diagrams: 03/17/21 17:04 03/17/21 17:04 Lab Results 03/17/21 03/17/21 03/17/21 Range/Units 17:04 17:04 17:04 WBC 8.9 (3.8-10.6) k/uL RBC 4.33 (3.80-5.40) m/uL Hgb 12.9 (11.4-16.0) gm/dL Hct 35.8 (34.0-46.0) % MCV 82.5 (80.0-100.0) fL MCH 29.7 (25.0-35.0) pg MCHC 36.0 (31.0-37.0) g/dL RDW 14.0 (11.5-15.5) % Plt Count 187 (150-450) k/uL MPV 8.0 Neutrophils % 52 % Lymphocytes % 41 % Monocytes % 3 % Eosinophils % 2 % Basophils % 0 % Neutrophils # 4.6 (1.3-7.7) k/uL Lymphocytes # 3.6 (1.0-4.8) k/uL Monocytes # 0.3 (0-1.0) k/uL Eosinophils # 0.2 (0-0.7) k/uL Basophils # 0.0 (0-0.2) k/uL PT 10.6 (9.0-12.0) sec INR 1.0 (<1.2) APTT 24.9 (22.0-30.0) sec Sodium 140 (137-145) mmol/L Potassium 3.8 (3.5-5.1) mmol/L Chloride 108 H (98-107) mmol/L Carbon Dioxide 25 (22-30) mmol/L Anion Gap 7 mmol/L BUN 16 (7-17) mg/dL Creatinine 0.85 (0.52-1.04) mg/dL Est GFR (CKD-EPI)AfAm >90 (>60 ml/min/1.73 sqM) Est GFR (CKD-EPI)NonAf >90 (>60 ml/min/1.73 sqM) Glucose 102 H (74-99) mg/dL Calcium 9.5 (8.4-10.2) mg/dL Total Bilirubin 0.5 (0.2-1.3) mg/dL AST 19 (14-36) U/L ALT 15 (4-34) U/L Alkaline Phosphatase 68 (38-126) U/L Troponin I (0.000-0.034) ng/mL Total Protein 7.0 (6.3-8.2) g/dL Albumin 4.1 (3.5-5.0) g/dL 03/17/21 Range/Units 17:04 WBC (3.8-10.6) k/uL RBC (3.80-5.40) m/uL Hgb (11.4-16.0) gm/dL Hct (34.0-46.0) % MCV (80.0-100.0) fL MCH (25.0-35.0) pg MCHC (31.0-37.0) g/dL RDW (11.5-15.5) % Plt Count (150-450) k/uL MPV Neutrophils % % Lymphocytes % % Monocytes % % Eosinophils % % Basophils % % Neutrophils # (1.3-7.7) k/uL Lymphocytes # (1.0-4.8) k/uL Monocytes # (0-1.0) k/uL Eosinophils # (0-0.7) k/uL Basophils # (0-0.2) k/uL PT (9.0-12.0) sec INR (<1.2) APTT (22.0-30.0) sec Sodium (137-145) mmol/L Potassium (3.5-5.1) mmol/L Chloride (98-107) mmol/L Carbon Dioxide (22-30) mmol/L Anion Gap mmol/L BUN (7-17) mg/dL Creatinine (0.52-1.04) mg/dL Est GFR (CKD-EPI)AfAm (>60 ml/min/1.73 sqM) Est GFR (CKD-EPI)NonAf (>60 ml/min/1.73 sqM) Glucose (74-99) mg/dL Calcium (8.4-10.2) mg/dL Total Bilirubin (0.2-1.3) mg/dL AST (14-36) U/L ALT (4-34) U/L Alkaline Phosphatase (38-126) U/L Troponin I <0.012 (0.000-0.034) ng/mL Total Protein (6.3-8.2) g/dL Albumin (3.5-5.0) g/dL - Radiology Data Radiology results: report reviewed (Computed tomography scan of the brain as well as CTA show no acute process.), image reviewed (Chest x-ray shows no acute process) Disposition Clinical Impression: Arm weakness Disposition: ADMITTED IP TO THIS HOSP Is patient prescribed a controlled substance at d/c from ED?: No Referrals: Hernandez Sarah DO [Primary Care Provider] - 1-2 days Decision Time: 20:34
[2021-03-17 17:11] LABS: Basophils % (A) 0 %; Eosinophils # (A) 0.2 k/uL (0-0.7); Eosinophils % (A) 2 %; HCT 35.8 % (34.0-46.0); HGB 12.9 gm/dL (11.4-16.0); Lymphocytes # (A) 3.6 k/uL (1.0-4.8); Lymphocytes % (A) 41 %; MCH 29.7 pg (25.0-35.0); MCV 82.5 fL (80.0-100.0); Monocytes # (A) 0.3 k/uL (0-1.0); Monocytes % (A) 3 %; Neutrophils # (A) 4.6 k/uL (1.3-7.7); Neutrophils % (A) 52 %; Platelet Count 187 k/uL (150-450); RBC 4.33 m/uL (3.80-5.40); WBC 8.9 k/uL (3.8-10.6)
[2021-03-17 17:25] LABS: ALT 15 U/L (4-34); AST 19 U/L (14-36); African American GFR (CKD) >90 (>60 ml/min/1.73 sqM); Albumin 4.1 g/dL (3.5-5.0); Alkaline Phosphatase 68 U/L (38-126); Anion Gap 7 mmol/L; Blood Urea Nitrogen 16 mg/dL (7-17); Calcium 9.5 mg/dL (8.4-10.2); Carbon Dioxide 25 mmol/L (22-30); Chloride 108 mmol/L (98-107); Glucose 102 mg/dL (74-99); Non-African American GFR(CKD) >90 (>60 ml/min/1.73 sqM); Potassium 3.8 mmol/L (3.5-5.1); Sodium 140 mmol/L (137-145); Total Bilirubin 0.5 mg/dL (0.2-1.3)
[2021-03-17 17:29] LABS: Partial Thromboplastin Time 24.9 sec (22.0-30.0); Prothrombin Time 10.6 sec (9.0-12.0)
--- NOTE | 2021-03-17 17:32 | XR ---
EXAMINATION: XR chest 2V DATE AND TIME: 03/17/2021 5:18 PM CLINICAL INDICATION: PHH; altered mental status TECHNIQUE: Departmental protocol COMPARISON: 09/18/2020 FINDINGS: The lungs are clear. The pleural spaces are negative. The cardiac silhouette is not enlarged. The remainder of the mediastinal silhouette is unremarkable. The skeletal structures and soft tissues are negative for acute findings. IMPRESSION: NO ACUTE PROCESS.
[2021-03-17] MEDS ORDERED: FAMOTIDINE 20 MG/2 ML VIAL IV STA (18:02)
[2021-03-17] MEDS ORDERED: methylPREDNISolone SOD SUCCI 125 MG/2 ML VIAL IV STA (18:02)
[2021-03-17] MEDS ORDERED: diphenhydrAMINE 50 MG/ML 1 ML VIAL IVP STA (18:02)
--- NOTE | 2021-03-17 18:54 | CT ---
EXAMINATION: CT brain wo con DATE AND TIME: 03/17/2021 6:46 PM CLINICAL INDICATION: PHH; Neuro deficit, acute, stroke suspected TECHNIQUE: Standard departmental protocol Dose:1101.8 mGy-cm COMPARISON: 09/18/2020 FINDINGS: The calvarium is intact. There is no intracranial hemorrhage. There is no intracranial mass or mass effect. No definite new intra-axial or extra-axial attenuation defect. The paranasal sinuses, middle ear cavities, and mastoid sinus air cells are clear. The orbits are unremarkable. IMPRESSION: NO ACUTE PROCESS.
--- NOTE | 2021-03-17 19:09 | CT ---
EXAMINATION TYPE: CT angio head neck with contrast and with 3-D reconstruction renderings DATE OF EXAM: 03/17/2021 HISTORY: Right arm weakness. COMPARISON: CT brain without contrast same day CT DLP: 419.5 mGycm. Automated Exposure Control for Dose Reduction was Utilized. TECHNIQUE: CTA scan of the neck is performed with IV Contrast, patient injected with 65ml mL of Isov ue 370, axial images are obtained, coronal and sagittal reformatted images are reviewed. 3D reconstru cted images are created on an independent workstation and reviewed. FINDINGS: NECK CTA: Carotid and vertebral arterial systems bilaterally: Widely patent and without evidence of d issection or focal stenosis or filling defect. NASCET criteria was used in interpretation of this exa m. Other: No extravascular incidental neck findings. Brain CTA: The anterior and posterior circulation are widely patent, without dissection, aneurysm, fi lling defect, or stenosis. Other: No extravascular incidental intracranial findings. IMPRESSION: No acute process.
[2021-03-17] MEDS ORDERED: NALOXONE 0.4 MG/ML 1 ML VIAL IV PRN (20:34)
[2021-03-18] MEDS: SODIUM CHLORIDE 0.9% 1,000 ML IV SCH ×3 (01:48→19:42)
[2021-03-18] MEDS: ACETAMINOPHEN TAB 325 MG TAB PO PRN ×2 (02:20→09:03)
--- NOTE | 2021-03-18 12:37 | P.HPIM ---
History of Present Illness Patient is a pleasant 35-year-old the female came in with complaints of weakness in the left arm and tingling numbness in the entire left arm which started yesterday patient was also complaining of neck pain and some tenderness in the paraspinal and trapezius area patient was also complaining of sharp chest pain on and off not associated with diaphoresis patient has shortness of breath but not associated with chest pain patient just pain is nonpleuritic. EKG is normal sinus rhythm facet of troponin is negative. Patient denied any family history of coronary artery disease patient pain is atypical in nature patient also has r eproducible chest pain. REVIEW OF SYSTEMS: CONSTITUTIONAL: No fever, no malaise, no fatigue. HEENT: No recent visual problems or hearing problems. Denied any sore throat. CARDIOVASCULAR: No orthopnea, PND, no palpitations, no syncope. PULMONARY: no cough, no hemoptysis. GASTROINTESTINAL: No diarrhea, no nausea, no vomiting, no abdominal pain. NEUROLOGICAL: Mentioned in HPI HEMATOLOGICAL: Denies any bleeding or petechiae. GENITOURINARY: Denies any burning micturition, frequency, or urgency. MUSCULOSKELETAL/RHEUMATOLOGICAL: Denies any joint pain, swelling, or any muscle pain. ENDOCRINE: Denies any polyuria or polydipsia. The rest of the 14-point review of systems is negative. PHYSICAL EXAMINATION: GENERAL: The patient is alert and oriented x3, not in any acute distress. Well developed, well nourished. HEENT: Pupils are round and equally reacting to light. EOMI. No scleral icterus. No conjunctival pallor. Normocephalic, atraumatic. No pharyngeal erythema. No thyromegaly. CARDIOVASCULAR: S1 and S2 present. No murmurs, rubs, or gallops. Chest pain is reproducible PULMONARY: Chest is clear to auscultation, no wheezing or crackles. ABDOMEN: Soft, nontender, nondistended, normoactive bowel sounds. No palpable organomegaly. MUSCULOSKELETAL: No joint swelling or deformity. EXTREMITIES: No cyanosis, clubbing, or pedal edema. NEUROLOGICAL: Patient has a 4/5 strength in the left upper extremity does have tingling numbness as well. SKIN: No rashes. Assessment and plan -Weakness of the left arm along with tingling numbness: Patient was admitted with concerns of cerebrovascular accident although patient appears to have cervical degenerative disc disease with a cervical radiculopathy with the tenderness in the upper trapezius muscle area as well as paraspinal area continue with the tramadol and [place] for pain. Discussed with neurology probably will obtain MRI of the cervical spine with contrast. The of the head and CT angios the head that are essentially within normal limits -Chest pain secondary to cervical and acropathy, musculoskeletal in origin atypical noncardiac will not need any further workup although will rule out acute coronary syndromes with a 2 more EKGs and troponins.. If needed can get a stress test as an outpatient. -Depression DVT prophylaxis: Early ambulation Past Medical History Past Medical History: No Reported History Additional Past Medical History / Comment(s): Irregular heavy frequent menses, sinus arrhythmia tachycardia, iron anemia History of Any Multi-Drug Resistant Organisms: None Reported Past Surgical History: Breast Surgery, Cholecystectomy Additional Past Surgical History / Comment(s): R breast benign tumor removed, D&C/benign uterine tumor, I&D L leg boil. Past Anesthesia/Blood Transfusion Reactions: Previous Problems w/ Anesthesia Additional Past Anesthesia/Blood Transfusion Reaction / Comment(s): states "rubi es longer to wake up" Past Psychological History: Anxiety, Depression Additional Psychological History / Comment(s): Pt resides with her 3 children. Pt is independent. Smoking Status: Former smoker Past Alcohol Use History: Occasional Additional Past Alcohol Use History / Comment(s): Pt started smoking in 2006 and smokes 4-5 cigarettes a day. Past Drug Use History: Marijuana Additional Drug Use History / Comment(s): marijuana edibles or smokes daily - Past Family History Mother Family Medical History: Thyroid Disorder Father Family Medical History: COPD Additional Family Medical History / Comment(s): pt states none Son(s) Family Medical History: Asthma Medications and Allergies Home Medications Medication Instructions Recorded Confirmed Type Ferrous Sulfate [Feosol] 325 mg PO DAILY 03/17/21 03/17/21 History HYDROcodone/APAP 10-325MG [[place] 1 tab PO Q4H PRN 03/17/21 03/17/21 History 10-325] Leuprolide Acetate [Lupron Depot] 11.25 mg IM Q90D 03/17/21 03/17/21 History Allergies Allergy/AdvReac Type Severity Reaction Status Date / Time aspirin Allergy Anaphylaxis Verified 03/17/21 17:46 cephalexin [From Keflex] Allergy Anaphylaxis Verified 03/17/21 17:46 hydromorphone [From Dilaudid] Allergy Anaphylaxis Verified 03/17/21 17:46 Iodinated Contrast Media Allergy Anaphylaxis Verified 03/17/21 17:46 Physical Exam Vitals: Vital Signs Temp Pulse Pulse Resp BP BP Pulse Ox 03/18/21 07:00 97.9 F 72 18 127/66 100 03/18/21 01:44 97.7 F 58 L 17 114/72 98 03/17/21 20:00 70 16 105/68 100 03/17/21 18:45 73 18 142/108 100 03/17/21 16:08 97.8 F 79 20 137/95 99 Intake and Output 03/17/21 03/18/21 03/18/21 22:59 06:59 14:59 Other: Voiding Method Toilet # Voids 1 Weight 74.843 kg Results CBC & Chem 7: 03/17/21 17:04 03/17/21 17:04 Labs: Abnormal Lab Results - Last 24 Hours (Table) 03/17/21 Range/Units 17:04 Chloride 108 H (98-107) mmol/L Glucose 102 H (74-99) mg/dL
[2021-03-18] MEDS: traMADol 50 MG TAB PO PRN ×2 (13:34→19:50)
[2021-03-18 14:28] LABS: Amphetamine Screen,Urine Not Detected (NotDetected); Barbiturate Screen,Urine Not Detected (NotDetected); Benzodiazepines Screen,Urine Not Detected (NotDetected); Cocaine Screen,Urine Not Detected (NotDetected); Methadone Screen, Urine Not Detected (NotDetected); Opiate Screen,Urine Not Detected (NotDetected); Oxycodone Screen, Urine Not Detected (NotDetected); Phencyclidine Screen,Urine Not Detected (NotDetected); Tricyclic Antidepressant,Urine Not Detected (NotDetected); Urn Cannabinoid Scrn Detected (NotDetected)
[2021-03-18] MEDS ORDERED: LORazepam 2 MG/ML INJ IV STA (16:08)
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
--- NOTE | 2021-03-18 17:45 | MR ---
EXAMINATION TYPE: MR brain/cspine wo DATE OF EXAM: 03/18/2021 5:27 PM COMPARISON: NONE HISTORY: Left arm weakness, possible CVA Multiplanar and multispin-echo imaging of the brain was performed . The ventricles, basal cisterns and sulci overlying the cerebral convexities are within normal limits. There is no evidence for midline shift or mass effect. Acute intracranial hemorrhage or extra-axial collection is not evident. The brain parenchyma reveals no abnormal increased signal. No acute edema is identified. The paranasal sinuses and mastoid air cells are well-aerated. IMPRESSION: Unremarkable MRI of the brain. EXAMINATION TYPE: MR brain/cspine wo DATE OF EXAM: 03/18/2021 5:27 PM COMPARISON: NONE HISTORY: Left arm weakness, possible CVA Multiplanar MultiSpin echo imaging of the cervical spine was performed. Comparison: none C2-C3: No evidence for degenerative disc disease. No disc bulge/herniation or protrusion. No Canal stenosis. Foramina are patent bilaterally. C3-C4: No evidence for degenerative disc disease. No disc bulge/herniation or protrusion. No Canal stenosis. Foramina are patent bilaterally. C4-C5: No evidence for degenerative disc disease. No disc bulge/herniation or protrusion. No Canal stenosis. Foramina are patent bilaterally. C5-C6: No evidence for degenerative disc disease. No disc bulge/herniation or protrusion. No Canal stenosis. Foramina are patent bilaterally. C6-C7: No evidence for degenerative disc disease. No disc bulge/herniation or protrusion. No Canal stenosis. Foramina are patent bilaterally. C7-T1: No evidence for degenerative disc disease. No disc bulge/herniation or protrusion. No Canal stenosis. Foramina are patent bilaterally. Cervical segments are intact. There is normal alignment. Cervical spinal cord is of normal signal. Craniovertebral junction relationships are within normal limits. IMPRESSION: 1. No distinct abnormality seen.
[2021-03-19 03:07] VITALS: RESP 16
[2021-03-19 08:38] VITALS: BP 130/83; PULSE 59; TEMP 98.2
--- NOTE | 2021-03-19 10:20 | P.DS ---
Providers Date of admission: 03/17/21 20:34 Attending physician: Amanda Wagner Consults: 03/17/21 20:34 Consult Physician Urgent Consulting Provider: Markell Herrera Consult Reason/Comments: Arm weakness, resolved, evaluate for TIA versus other Do you want consulting provider notified?: Yes Primary care physician: [facility] Course: History of Present Illness Patient is a pleasant 35-year-old the female came in with complaints of weakness in the left arm and tingling numbness in the entire left arm which started yesterday patient was also complaining of neck pain and some tenderness in the paraspinal and trapezius area patient was also complaining of sharp chest pain on and off not associated with diaphoresis patient has shortness of breath but not associated with chest pain patient just pain is nonpleuritic. EKG is normal sinus rhythm facet of troponin is negative. Patient denied any family history of coronary artery disease patient pain is atypical in nature patient also has reproducible chest pain. 03/19/2021 Patient had an MRI of the head and neck didn't show any significant abnormality. There is no stroke on MRI. Patient still has tenderness in the paraspinal area and patient also pain in the left shoulder area patient may have a rotator cuff injury or rotator cuff problems for which we are referring her to orthopedic surgery and patient will be given prescription for tramadol. Patient says have weakness in the left arm is better but still having significant pain in the shoulder. PHYSICAL EXAMINATION: GENERAL: The patient is alert and oriented x3, not in any acute distress. Well developed, well nourished. HEENT: Pupils are round and equally reacting to light. EOMI. No scleral icterus. No conjunctival pallor. Normocephalic, atraumatic. No pharyngeal erythema. No thyromegaly. CARDIOVASCULAR: S1 and S2 present. No murmurs, rubs, or gallops. Chest pain is reproducible PULMONARY: Chest is clear to auscultation, no wheezing or crackles. ABDOMEN: Soft, nontender, nondistended, normoactive bowel sounds. No palpable organomegaly. MUSCULOSKELETAL: No joint swelling or deformity. EXTREMITIES: No cyanosis, clubbing, or pedal edema. NEUROLOGICAL: Patient has a 4/5 strength in the left upper extremity does have tingling numbness as well. SKIN: No rashes. Assessment and plan -Weakness of the left arm along with tingling numbness: Rule out cervical retinopathy as well as stroke. Patient MRI of the head and neck did not show any significant abnormality patient may have rotator cuff injury. Patient will report orthotics surgery patient will be discharged on tramadol. -Chest pain rule out acute coronary syndromes troponins were negative EKGs did not show any significant abnormality d-dimer is negative If needed can get a stress test as an outpatient. -Depression Plan - Discharge Summary Discharge Rx Participant: No New Discharge Prescriptions: New traMADol HCL [Ultram] 50 mg PO Q4HR PRN 7 Days #30 tab PRN Reason: Pain No Action Ferrous Sulfate [Feosol] 325 mg PO DAILY HYDROcodone/APAP 10-325MG [Burnside 10-325] 1 tab PO Q4H PRN PRN Reason: Pain Leuprolide Acetate [Lupron Depot] 11.25 mg IM Q90D Discharge Medication List Ferrous Sulfate [Feosol] 325 mg PO DAILY 03/17/21 [History] HYDROcodone/APAP 10-325MG [[place] 10-325] 1 tab PO Q4H PRN 03/17/21 [History] Leuprolide Acetate [Lupron Depot] 11.25 mg IM Q90D 03/17/21 [History] traMADol HCL [Ultram] 50 mg PO Q4HR PRN 7 Days #30 tab 03/19/21 [Rx] Follow up Appointment(s)/Referral(s): Hernandez Sarah DO [Primary Care Provider] - 3 Days Kirk Arshad MD [STAFF PHYSICIAN] - 1 Week Discharge Disposition: HOME SELF-CARE
[2021-03-19] MEDS: traMADol 50 MG TAB PO PRN (12:49)
[2021-03-19] MEDS: SODIUM CHLORIDE 0.9% 1,000 ML IV SCH (13:55)
== END 2021-03-19 14:20 | disposition home or self-care (01) ==
LOC: EC 15:59 → 6NMEDSUR 20:34
PROVIDERS: ADMIT Hospitalist; ATTEND Hospitalist
DX: R53.1 Weakness (principal); R07.89 Other chest pain; R51.9 Headache, unspecified; M54.2 Cervicalgia; R00.0 Tachycardia, unspecified; M25.512 Pain in left shoulder; M79.605 Pain in left leg; R20.2 Paresthesia of skin; R06.02 Shortness of breath; F32.A Depression, unspecified; Z20.822 Contact with and (suspected) exposure to COVID-19; F41.9 Anxiety disorder, unspecified; F12.90 Cannabis use, unspecified, uncomplicated; Z88.1 Allergy status to other antibiotic agents; Z88.6 Allergy status to analgesic agent; Z88.5 Allergy status to narcotic agent; Z91.048 Other nonmedicinal substance allergy status; Z87.891 Personal history of nicotine dependence; Z86.018 Personal history of other benign neoplasm; Z87.42 Personal history of other diseases of the female genital tract; Z82.5 Family history of asthma and other chronic lower respiratory diseases; Z83.49 Family history of other endocrine, nutritional and metabolic diseases
CPT/HCPCS: 99285; 96375 ×2; 96374; 36415; 93005; 85379; 80053; 84484 ×2; 85025; 85610; 85730; 80306; 87635; 71046; 70496; 70450; 70498; 70551; 72141; G0378 ×3; J2060; J1200; J2930; Q9967